=== PATIENT | female | born 1970 | race Caucasian/White ===

== ENCOUNTER 2019-11-06 12:40 | Inpatient (IN) ==
[2019-11-06] MEDS ORDERED: NS 1000 ML 1,000 ML IV ONE ×3 (12:44→17:09)
[2019-11-06 12:58] VITALS: BMI 30.2
--- NOTE | 2019-11-06 13:04 | DR.EXTPAIN ---
HPI Time seen Time Seen by Provider: 11/06/19 12:44 HPI Comment HPI Comment: PATIENT IS 49YR OLD FEMALE IN ER WITH 3 DAYS HISTORY OF NOT FEELING GOOD WHILE ON VACATION. SHE IS HAVING DIARRHEA, IS WEAK AND IS FEELING LIKE SHE IS GOING TO PASS OUT. SHE IS HYPOTENSIVE. PAITIENT HAVE FEVER AND IS SOB. DENIES BEING AROUND COVID 19 PATIENT OR SOMEONE SICK. WORKS IN A DAY CARE. Complaint/Symptoms Chief Complaint Doctor Comments: FEVER, WEAKNESS, MALAISE, DIZZINESS, DIARRHEA SOB AND DIARRHEA TIMES 3 DAYS. COVID-19 Coronavirus risk:travel/contact w/high risk person: No Has patient experienced Coronavirus symptoms: No Coronavirus symptoms experienced: Fever Nurses notes reviewed Nurses Notes Review: Yes Source History Provided: Patient and Family Member Mode of arrival Mode of Arrival: Wheelchair Context History of: None Associated signs and symptoms Associated Signs and Symptoms: Weakness, Fever, Abdominal Pain, Nausea, Palipitations, Shortness of Breath, Syncope (NEAR SYNCOPAL FEELING), Vomiting an d Other PMH PMH Past Surgical History: Yes ROS Review of Systems Constitutional: See HPI, Chills, Fever, Malaise, Weakness and Fatigue Eyes: No Symptoms Reported and See HPI; negative Blurred Vision and Diplopia ENTM: See HPI, Nose Congestion and Throat Pain; negative Ear Pain and Nose Discharge Respiratoy: See HPI, Moist Cough and Short of Breath; negative Wheezing Cardiovascular: See HPI and Other (HYPOTENSION.); negative Chest Pain, Palpitations and Syncope (NEAR SYNCOPAL EPISODE.) Gastrointestinal/Abdominal: See HPI, Diarrhea, Nausea and Vomiting Genitourinary: See HPI, Dysuria, Frequency and Other (DECREASE URINE OUTPUT.) Neurological: See HPI, Weakness and Dizziness Musculoskeletal: No Symptoms Reported and See HPI Integumentary: No Symptoms Reported and See HPI Hematologic/Lymphatic: No Symptoms Reported and See HPI; negative Easy Bruising and Swollen Glands Endocrine: No Symptoms Reported and See HPI; negative Increased Thirst and Increased Urine Psychiatric: No Symptoms Reported and See HPI All Other Systems: Reviewed and Negative PE Vital Signs Vitals: Temperature 99.8 F Pulse Rate 94 Respiratory Rate 28 Blood Pressure [Left Arm] 80/43 Blood Pressure 84/46 O2 Sat by Pulse Oximetry 96 General Limitations: No Limitations General Appearance: Alert and In Distress Head Head Exam: Normal Inspection and Atraumatic Eyes Eye exam: Normal Appearance and PERRL; negative Scleral Icterus and Conjunctival Injection ENT ENT Exam: Normal Exam, Normal Oropharynx, Normal External Ear Exam and TM's Normal Bilaterally Neck Neck Exam: Normal Inspection and Trachea Midline; negative Tenderness and Lymphadenopathy Chest Chest Inspection: Normal Inspection and Symmetric Chest Wall Rise; negative Tenderness Respiratory Respiratory Exam: Normal Lung Sounds Bilat and Respiratory Distress; negative Accessory Muscle Use and Chest Wall Tenderness Respiratory Exam: Bilateral: Rhonchi and Lower: Rhonchi Cardiovascular Cardiovascular Exam: Regular Rate and Normal Rhythm; negative Normal Heart Sounds, Systolic Murmur and Diastolic Murmur Abdominal Exam Abdominal Exam: Normal Inspection, Normal Bowel Sounds, Soft and Tenderness Abdominal Tenderness: Diffuse and Moderate Extremities Extremities Exam: Normal Inspection and Normal Capillary Refill; negative Tenderness, Edema and Calf Tenderness Back Back Exam: Normal Inspection; negative (R) CVA Tenderness and (L) CVA Tenderness Neurological Neurological Exam: Alert, Oriented X3 and CN II-XII Intact; negative Motor Sensory Deficit Psychiatric Psychiatric Exam: Normal Affect and Normal Mood Skin Skin Exam: Dry MDM Differential Diagnosis Differential Diagnosis: Other (HYPOTENSION, PNEUMONIA, SEPSIS, GASTROENTERITIS, DIARRHEA, [place]) COURSE Treatment Treatment: SEE ORDERS. NS 1L IV BOLUS. REPEAT NS 1L IV BOLUS. OFIRMEV 1GM IVPB, LEVAQUIN 750MG IVPB IN ER. Reevaluation 1st: Unchanged 2nd: Improved (BP IMPROVING.) Consultation Consultation Comments: DR. CUELLO WILL ADMIT PATIENT. Education/Counseling Education/Counseling: Patient Educated On: Diagnosis ROR Labs Reviewed Laboratory Results Reviewed?: Yes Result Diagrams: 11/09/19 04:20 11/09/19 04:20 Laboratory: 11/06/19 12:59 Blood Blood Culture - Preliminary 11/06/19 12:53 Blood Blood Culture - Preliminary WBC 5.1 X10^3/uL (3.6-10.0) 11/06/19 12:53 RBC 4.68 X10^6/uL (3.5-5.4) 11/06/19 12:53 Hgb 13.6 g/dL (12.0-16.0) 11/06/19 12:53 Hct 39.9 % (36.0-47.0) 11/06/19 12:53 MCV 85.3 fL (80.0-100.0) 11/06/19 12:53 MCH 29.1 pg (27.0-34.0) 11/06/19 12:53 MCHC 34.1 g/dL (33.0-35.0) 11/06/19 12:53 RDW 13.5 % (11.6-16.5) 11/06/19 12:53 Plt Count 207 X10^3/uL (150.0-450.0) 11/06/19 12:53 MPV 7.9 fL (7.4-11.0) 11/06/19 12:53 Neut % (Auto) 76.5 % (42.0-75.0) H 11/06/19 12:53 Lymph % (Auto) 14.6 % (21.0-51.0) L 11/06/19 12:53 [place] % (Auto) 4.6 % (0.0-13.0) 11/06/19 12:53 Eos % (Auto) 0.1 % (0.9-2.9) L 11/06/19 12:53 Baso % (Auto) 4.2 % (0.2-1.0) H 11/06/19 12:53 Neut # (Auto) 3.9 x10^3/uL (2.2-4.8) 11/06/19 12:53 Lymph # (Auto) 0.8 X10^3/uL (1.3-2.9) L 11/06/19 12:53 [place] # (Auto) 0.2 x10^3/uL (0.3-0.8) L 11/06/19 12:53 Eos # (Auto) 0.0 x10^3/uL (0.0-0.2) 11/06/19 12:53 Baso # (Auto) 0.2 X10^3/uL (0.0-0.1) H 11/06/19 12:53 Absolute Nucleated RBC 0.1 /100WBC 11/06/19 12:53 Sodium 128 mmol/L (136-145) L 11/06/19 12:53 Corrected Sodium 131 mmol/L (136-145) L 11/06/19 12:53 Potassium 3.6 mmol/L (3.5-5.1) 11/06/19 12:53 Chloride 92 mmol/L (98-107) L 11/06/19 12:53 Carbon Dioxide 18.4 mmol/L (21-32) L 11/06/19 12:53 BUN 18 mg/dL (7-18) 11/06/19 12:53 Creatinine 1.45 mg/dL (0.55-1.02) H 11/06/19 12:53 Est GFR (MDRD) Af Amer 50 (>60) L 11/06/19 12:53 Est GFR (MDRD) Non-Af 41 (>60) L 11/06/19 12:53 Glucose 234 mg/dL (65-99) H 11/06/19 12:53 Lactic Acid 1.6 mmol/L (0.4-2.0) 11/06/19 12:53 Calcium 8.4 mg/dL (8.5-10.1) L 11/06/19 12:53 Corrected Calcium 9.0 mg/dL (8.5-10.1) 11/06/19 12:53 Ferritin 196 ng/mL (8-252) 11/06/19 12:53 Total Bilirubin 0.40 mg/dL (0.2-1.0) 11/06/19 12:53 AST 32 Units/L (15-37) 11/06/19 12:53 ALT 37 Units/L (12-78) 11/06/19 12:53 Alkaline Phosphatase 122 Units/L (46-116) H 11/06/19 12:53 Lactate Dehydrogenase 283 Units/L (81-234) H 11/06/19 12:53 C-Reactive Protein 25.00 mg/L (0-3.0) H 11/06/19 12:53 Total Protein 7.8 g/dL (6.4-8.2) 11/06/19 12:53 Albumin 3.2 g/dL (3.4-5.0) L 11/06/19 12:53 Globulin 4.6 g/dL (2.5-4.5) H 11/06/19 12:53 Albumin/Globulin Ratio 0.7 Ratio (1.1-2.1) L 11/06/19 12:53 Amylase 69 Units/L (25-115) 11/06/19 12:53 Lipase 471 Units/L (73-393) H 11/06/19 12:53 Acetone, Semi-Quant Negative (NEGATIVE) 11/06/19 12:53 Influenza Type A Ag Negative-presumptive (NEGATIVE) 11/06/19 15:30 Influenza Type B Ag Negative-presumptive (NEGATIVE) 11/06/19 15:30 SARS-CoV-2 (PCR) Positive (NEGATIVE) A 11/06/19 15:30 S. pyogenes (TEM-PCR) Not detected (NOT DETECT) 11/06/19 15:30 XRAY XRAY Interpreted by: Radiologist (REPORT NOTED AND DISCUSSED WITH PATIENT.) and Self Opioid Opioid Risk Tool Age (Demarco box if 16-45): No History of Preadolescent Sexual Abuse: No Total: 0 Total Score Risk Category: Low Risk Copyright: [employer] predicting aberrant behaviors Diagnosis Discharge Problem: Hyponatremia, COVID-19 Hypotension Qualifiers: Hypotension type: unspecified hypotension type Qualified Code(s): I95.9 - Hypotension, unspecified Pneumonia Qualifiers: Pneumonia type: due to unspecified organism Laterality: bilateral Lung location: lower lobe of lung Qualified Code(s): J18.9 - Pneumonia, unspecified organism Diarrhea Qualifiers: Diarrhea type: due to malabsorption Qualified Code(s): K90.9 - Intestinal malabsorption, unspecified Instructions Instructions: Hypotension, [id number] Viral Respiratory Infection, Xygn-Cq-Tqeo Fever, Adult Cough, Adult, Eiav-ei-Rzgc Type 2 Diabetes Mellitus, Self Care, Adult, Mqeg-rn-Hpmm Community-Acquired Pneumonia, Adult, Xzex-ek-[id number] Forms: Precautions for COVID19 Patient Portal Social Distancing
[2019-11-06 13:19] LABS: BASOPHILS # (AUTO) 0.2 X10^3/uL (0.0-0.1); BASOPHILS % (AUTO) 4.2 % (0.2-1.0); EOSINOPHILS % (AUTO) 0.1 % (0.9-2.9); HEMATOCRIT 39.9 % (36.0-47.0); HEMOGLOBIN 13.6 g/dL (12.0-16.0); LYMPHOCYTES # (AUTO) 0.8 X10^3/uL (1.3-2.9); LYMPHOCYTES % (AUTO) 14.6 % (21.0-51.0); MEAN CORPUSCULAR HEMOGLOBIN 29.1 pg (27.0-34.0); MEAN CORPUSCULAR HGB CONC 34.1 g/dL (33.0-35.0); MEAN CORPUSCULAR VOLUME 85.3 fL (80.0-100.0); MEAN PLATELET VOLUME 7.9 fL (7.4-11.0); MONOCYTES # (AUTO) 0.2 x10^3/uL (0.3-0.8); MONOCYTES % (AUTO) 4.6 % (0.0-13.0); NEUTROPHILS # (AUTO) 3.9 x10^3/uL (2.2-4.8); NEUTROPHILS % (AUTO) 76.5 % (42.0-75.0); PLATELET COUNT 207 X10^3/uL (150.0-450.0); RED BLOOD COUNT 4.68 X10^6/uL (3.5-5.4); RED CELL DISTRIBUTION WIDTH 13.5 % (11.6-16.5); WHITE BLOOD COUNT 5.1 X10^3/uL (3.6-10.0)
[2019-11-06 13:26] LABS: ALBUMIN 3.2 g/dL (3.4-5.0); CALCIUM 8.4 mg/dL (8.5-10.1); CARBON DIOXIDE 18.4 mmol/L (21-32); CREATININE 1.45 mg/dL (0.55-1.02); TOTAL PROTEIN 7.8 g/dL (6.4-8.2)
[2019-11-06 13:29] LABS: LACTIC ACID 1.6 mmol/L (0.4-2.0)
[2019-11-06] MEDS ORDERED: NS 1000 ML 1,000 ML ONE ×2 (13:41→15:13)
--- NOTE | 2019-11-06 14:45 | RAD ---
HISTORY:Body aches, chills, possible COVID-19Study: Single view chestComparison:NoneFindings:Single portable views limited by body habitus. Lung volumes are reduced. Mild perihilar atelectasis or infiltrates are seen in both lungs. No pneumothorax or pleural effusion. Heart size normalIMPRESSION:1. Mild bilateral perihilar atelectasis versus developing infiltrates. Pneumonia not excluded.Electronically signed by: GEOVANY WALTERS (Nov 06, 2019 14:44:22)
[2019-11-06] MEDS ORDERED: OFIRMEV IV 1000 MG VIAL 1,000 MG/100 ML VIAL IV ONE (15:09)
--- NOTE | 2019-11-06 15:09 | CT ---
HISTORY:Body aches, abdominal pain, chillsStudy: CT abdomen and pelvis without contrastComparison:NoneTechnique: Multiple axial images of the abdomen and pelvis were obtained without IV contrast. Oral contrast was not administered. Dose reduction techniques including Automated Exposure Control (AEC) and adjustment of mA and kV were utilized.FINDINGS:Please note evaluation is limited without IV contrast.Peripheral ground-glass infiltrates at the lung bases compatible with pneumonia with atypical viral etiologies not excluded. There is mild hepatic steatosis and hepatomegaly. Spleen is borderline enlarged. The unenhanced pancreas and adrenal glands are normal. Gallbladder is removed. No renal calculi or obstructive uropathy.No free intraperitoneal air. No evidence of intestinal obstruction or inflammation. Appendix is normal. No free fluid.There is a fat containing umbilical hernia. Limited evaluation of vascular structures due to lack of IV contrast. No pathologically enlarged lymph nodes are identified. Normal urinary bladder. There is a 2.8 centimeter right adnexal cyst.IMPRESSION ABDOMEN/PELVIS:1. Peripheral ground-glass infiltrates at the lung bases compatible with pneumonia. Atypical viral etiologies such as COVID-19 not excluded.2. No acute findings within the abdomen and pelvis on limited noncontrast imaging.3. Fat containing periumbilical hernia.4. 2.8 centimeter right adnexal cyst, likely ovarian.5. Mild hepatic steatosis.Electronically signed by: GEOVANY WALTERS (Nov 06, 2019 15:08:04)
[2019-11-06] MEDS: NS 1000 ML 1,000 ML IV SCH (15:21)
[2019-11-06] MEDS ORDERED: LEVAQUIN PREMIX IV 750 MG 750 MG/150 ML BAG IV ONE ×2 (15:22→15:46)
[2019-11-06] MEDS ORDERED: ROBITUSSIN DM ONE (17:21)
[2019-11-06] MEDS: ROBITUSSIN DM PO SCH ×2 (17:31→20:41)
[2019-11-06 18:11] LABS: BILIRUBIN,URINE NEGATIVE (NEGATIVE); BLOOD/HEMOGLOBIN,URINE NEGATIVE (NEGATIVE); GLUCOSE, URINE 4+ (NEGATIVE); KETONES,URINE 2+ (NEGATIVE); LEUKOCYTE ESTERASE ,URINE NEGATIVE (NEGATIVE); NITRITES,URINE NEGATIVE (NEGATIVE); PROTEIN,URINE 2+ (NEGATIVE); UROBILINOGEN,URINE NORMAL (NORMAL)
[2019-11-06 18:18] LABS: AMORPHOUS SEDIMENT,UR TRACE /HPF (NEGATIVE); APPEARANCE,URINE CLEAR (CLEAR); BACTERIA,URINE NEGATIVE /HPF (NEGATIVE); COLOR,URINE YELLOW (YELLOW); RBC,URINE NONE SEEN /HPF (0-3); SQUAMOUS EPITHELIAL CELL,UR RARE /HPF (NEGATIVE)
[2019-11-06 18:19] LABS: HYALINE CASTS, URINE RARE /LPF (NEGATIVE); MUCUS,URINE MODERATE /HPF (NEGATIVE)
[2019-11-06] MEDS ORDERED: NORCO 5/325 MG TAB PO ONE (20:27)
[2019-11-06] MEDS ORDERED: NORCO 5/325 MG TAB ONE (20:29)
--- NOTE | 2019-11-06 23:15 | DR.H&P ---
H&P - History & Physical for Day of: H&P Date: 11/06/19 - Chief Complaint Chief Complaint: CHILLS, HEADACHE, CONGESTION, NAUSEA, DIARRHEA, BODY ACHES, WEAKNESS, DIZZINESS, SYNCOPE - History of Present Illness History of Present Illness: IS A 49 YEAR OLD PATIENT OF OURS WHO PRESENTED TO THE ER WITH REPORTS OF CHILLS, HEADACHE, CONGESTION, NAUSEA, DIARRHEA, BODY ACHES, WEAKNESS, DIZZINESS, AND SYNCOPAL EPISODES. CONGESTION AND HEADACHE STARTED ABOUT A WEEK AGO. SHE WAS PLACED ON AMOXICILLIN 500 MG PO BID, PREDNISONE 5MG PO DAILY, AND MUCINEX DM 1200MG PO BID ON 11/01/19 FOR A SUSPECTED SINUS INFECTION. SHE DENIES IMPROVEMENT IN SYMPTOMS. HER PMH INCLUDES CARDIAC ARRHYTHMIA, HYPERLIPIDEMIA, GERD, DIABETES II, HYPOTHYROIDISM, ANEMIA, ANXIETY, AND CHOLECYSTECTOMY. ON ARRIVAL TO THE ER, VITALS WERE 100.6-16-90-96%-61/41. LABS WERE OBTAINED. ABNORMAL LAB VALUES INCLUDE THE FOLLOWING: SODIUM 128, CHLORIDE 92, CARBON DIOXIDE 18.4, CREATININE 1.45, GLUCOSE 234, CALCIUM 8.4, ALK PHOS 122, LACTATE DEHYDROGENASE 283, CRP 25.00, ALBUMIN 3.2, GLOBULIN 4.6, LIPASE 471. INFLUENZA NEGATIVE, STREP NEGATIVE, COVID-19 POSITIVE. BLOOD CULTURE WERE SET UP. AN ABDOMEN/PELVIS CT WAS OBTAINED WITHOUT CONTRAST AND REVEALED: 1. Peripheral ground-glass infiltrates at the lung bases compatible with pneumonia. Atypical viral etiologies such as COVID-19 not excluded. 2. No acute findings within the abdomen and pelvis on limited non- contrast imaging. 3. Fat containing periumbilical hernia. 4. 2.8 centimeter right adnexal cyst, likely ovarian. 5. Mild hepatic steatosis. A CHEST XRAY WAS OBTAINED AND REVEALED: 1. Mild bilateral perihilar atelectasis versus developing infiltrates. Pneumonia not excluded. SHE WAS GIVEN NORCO 5/325MG PO X 1, (3) ONE LITER NORMAL SALINE BOLUSES, LEVAQUIN 750MG IV X 2, AND IV TYLENOL IN THE ER. SHE WAS ADMITED FOR FURTHER EVALUATION AND TREATMENT OF COVID-19, PNEUMONIA, DEHYDRATION, HYPONATREMIA, AND HYPOTENSION. SHE WAS STARTED ON THE PNEUMONIA PROTOCOL WITH NS AT 25ML/HR, LEVAQUIN 750MG IV DAILY, ROBITUSSIN DM 10M PO QID, TUSSIONEX 5ML PO Q12H, AND DUONEBS Q6H. WE WILL REVIEW HER HOME MEDICATIONS. OTHERWISE, WE WILL FOLLOW UP WITH AM LABS AND CONTINUE TO MONITOR. - Past Medical History Past Medical History: Diabetes, Hypertension - Past Surgical History Surgical History: Cholecystectomy - Family History Family Medical History: Diabetes Mellitus, Cancer, [place], Coronary Artery Disease, Heart Failure, Sudden Cardiac , Hypertension - Social History Does patient currently use any type of tobacco product: No Have you used tobacco products in the last 12 months: No Type of Tobacco Use: None Does any household member use tobacco: No Alcohol Use: None Drug Use: None - Medications Home Medications: No Known Drug Allergies Allergy (Verified 11/06/19 13:06) - Review of Systems Constitutional: Fever, Chills, Weakness Eyes: No Symptoms Reported ENT: No Symptoms Reported Respiratory: Shortness of Breath Cardiovascular: Light Headedness Gastrointestinal: See HPI, Nausea, Diarrhea Genitourinary: No Symptoms Reported Musculoskeletal: No Symptoms Reported Skin: No Symptoms Reported Neurological: Weakness - Physical Exam Vital Signs: Temperature 99.8 F Pulse Rate [Apical] 93 Pulse Rate 96 Respiratory Rate 20 Blood Pressure [Left Arm] 94/48 Blood Pressure 91/54 O2 Sat by Pulse Oximetry 96 Oriented: Normal Eyes: Normal Ear: Normal Nose: Normal Throat: Normal Respiratory: Diminished Throughout Cardiovascular: Normal : Normal Auscultation: Bowel Sounds: Normal Palpation: Normal Tenderness: Normal Skin: Normal Musculoskeletal: Normal Psychiatric: Normal Mood Description: Calm Affect: Normal Speech Pattern: Clear - Assessment/Plan (1) COVID-19 Status: Acute Plan: ADMIT, NS AT 25ML/HR, LEVAQUIN 750MG IV DAILY, ROBITUSSIN DM 10M PO QID, TUSSIONEX 5ML PO Q12H, AND DUONEBS Q6H, REMDESIVIR 200MG IV TODAY, THEN 100MG IV DAILY (2) Pneumonia Qualifiers: Pneumonia type: due to unspecified organism Laterality: bilateral Lung location: lower lobe of lung Qualified Code(s): J18.9 - Pneumonia, unspecified organism Status: Acute (3) Hyponatremia Status: Acute (4) Hypotension Qualifiers: Hypotension type: unspecified hypotension type Qualified Code(s): I95.9 - Hypotension, unspecified Status: Acute - Allergies Allergies/Adverse Reactions: Allergies Allergy/AdvReac Type Severity Reaction Status Date / Time No Known Drug Allergies Allergy Verified 11/06/19 13:06
[2019-11-07] MEDS ORDERED: DUONEB 0.5 MG/3 MG (3 mL) NEB SCH
[2019-11-07] MEDS: NS 1000 ML 1,000 ML IV SCH ×4 (00:47→16:54)
[2019-11-07] MEDS: DUONEB 0.5 MG/3 MG (3 mL) NEB SCH ×4 (04:08→18:10)
[2019-11-07 06:01] LABS: BASOPHILS % (AUTO) 0.5 % (0.2-1.0); EOSINOPHILS % (AUTO) 0.1 % (0.9-2.9); HEMATOCRIT 34.5 % (36.0-47.0); HEMOGLOBIN 11.7 g/dL (12.0-16.0); LYMPHOCYTES # (AUTO) 0.9 X10^3/uL (1.3-2.9); MEAN CORPUSCULAR HEMOGLOBIN 29.2 pg (27.0-34.0); MEAN CORPUSCULAR HGB CONC 33.8 g/dL (33.0-35.0); MEAN CORPUSCULAR VOLUME 86.6 fL (80.0-100.0); MEAN PLATELET VOLUME 7.8 fL (7.4-11.0); MONOCYTES # (AUTO) 0.3 x10^3/uL (0.3-0.8); MONOCYTES % (AUTO) 7.8 % (0.0-13.0); NEUTROPHILS # (AUTO) 2.2 x10^3/uL (2.2-4.8); NEUTROPHILS % (AUTO) 64.6 % (42.0-75.0); PLATELET COUNT 170 X10^3/uL (150.0-450.0); RED BLOOD COUNT 3.99 X10^6/uL (3.5-5.4); RED CELL DISTRIBUTION WIDTH 13.9 % (11.6-16.5); WHITE BLOOD COUNT 3.3 X10^3/uL (3.6-10.0)
[2019-11-07 06:03] LABS: ALANINE AMINOTRANSFERASE 32 Units/L (12-78); ALBUMIN 2.5 g/dL (3.4-5.0); ALKALINE PHOSPHATASE 96 Units/L (46-116); ASPARTATE AMINO TRANSFERASE 30 Units/L (15-37); BLOOD UREA NITROGEN 12 mg/dL (7-18); CALCIUM 7.6 mg/dL (8.5-10.1); CARBON DIOXIDE 17.9 mmol/L (21-32); CHLORIDE 103 mmol/L (98-107); COR CA(FOR HYPOALB) 8.8 mg/dL (8.5-10.1); COR NA(FOR HYPERGLY) 137 mmol/L (136-145); CREATININE 0.83 mg/dL (0.55-1.02); SODIUM 136 mmol/L (136-145); TOTAL PROTEIN 6.4 g/dL (6.4-8.2); eGFR NON BLACK RACES > 60 (>60)
--- NOTE | 2019-11-07 08:27 | RAD ---
HISTORYSHORTNESS OF BREATHSTUDYCHEST, 1 VIEWCOMPARISONJuly 2019FINDINGSThe patient is rotated. The cardiac silhouette is unremarkable. Infiltrate is noted bilaterally primarily within a peripheral and bibasilar distribution suggesting multifocal infiltrate which may be either bacterial or viral in origin. The right lower lobe airspace disease appears to have progressed/worsened since prior exam. Recommend clinical correlation and continued follow up as indicated for further evaluation.IMPRESSIONBilateral airspace disease as discussed above.Electronically signed by: MINESH CUEVAS (Nov 07, 2019 08:26:13)
[2019-11-07] MEDS ORDERED: NORCO 5/325 MG TAB ONE (08:32)
[2019-11-07] MEDS: NORCO 5/325 MG TAB PO PRN ×3 (08:33→23:00)
[2019-11-07] MEDS: LEVAQUIN PREMIX IV 750 MG 750 MG/150 ML BAG IV SCH (09:35)
[2019-11-07] MEDS: ROBITUSSIN DM PO SCH ×4 (09:36→20:31)
[2019-11-07] MEDS: VSL#3 PO SCH (09:36)
[2019-11-07] MEDS ORDERED: TORADOL 30 MG VIAL ONE (09:39)
[2019-11-07] MEDS: TORADOL 30 MG VIAL IVP SCH ×2 (09:41→17:55)
[2019-11-07] MEDS ORDERED: REMDESIVIR (INVESTIGATIONAL DRUG GS-5734) 200 MG in NS 250 ML IV 250 ML IV NR (10:30)
[2019-11-07] MEDS: LOVENOX INJ 40 MG SYR SC SCH (13:30)
[2019-11-07] MEDS ORDERED: POTASSIUM CHL 60 MEQ/NS 0.45% 500 ML IV PRN (19:14)
[2019-11-07] MEDS ORDERED: MICRO K EXTEN CAP 10 MEQ PO PRN (19:14)
[2019-11-07] MEDS ORDERED: POTASSIUM CHLORIDE LIQ 20 MEQ UDC PO PRN (19:14)
[2019-11-07] MEDS ORDERED: POTASSIUM CHL 40 MEQ/NS 0.45% 500 ML IV PRN (19:14)
[2019-11-07] MEDS ORDERED: K-RIDER 10 MEQ/NS 100 ML 10 MEQ/100 ML BAG IV PRN (19:14)
[2019-11-07] MEDS ORDERED: KLOR-CON PO PRN (19:14)
[2019-11-07] MEDS: K-DUR TAB 20 MEQ PO PRN (20:31)
[2019-11-07] MEDS: MAGNESIUM SULFATE 1 GRAM/100 mL PREMIX 1 GM/100 ML BAG IV PRN ×3 (20:35→22:50)
[2019-11-07] MEDS ORDERED: NexIUM ONE (21:31)
[2019-11-07] MEDS: NexIUM PO SCH (21:32)
[2019-11-08] MEDS: MAGNESIUM SULFATE 1 GRAM/100 mL PREMIX 1 GM/100 ML BAG IV PRN (00:06)
[2019-11-08] MEDS: DUONEB 0.5 MG/3 MG (3 mL) NEB SCH ×2 (00:40→05:50)
[2019-11-08] MEDS: TORADOL 30 MG VIAL IVP SCH ×3 (01:15→17:35)
[2019-11-08] MEDS: NS 1000 ML 1,000 ML IV SCH ×6 (02:00→22:55)
[2019-11-08 05:41] LABS: BASOPHILS % (AUTO) 0.3 % (0.2-1.0); EOSINOPHILS % (AUTO) 0.1 % (0.9-2.9); HEMATOCRIT 33.6 % (36.0-47.0); HEMOGLOBIN 11.5 g/dL (12.0-16.0); LYMPHOCYTES # (AUTO) 0.9 X10^3/uL (1.3-2.9); LYMPHOCYTES % (AUTO) 18.6 % (21.0-51.0); MEAN CORPUSCULAR HEMOGLOBIN 29.7 pg (27.0-34.0); MEAN CORPUSCULAR HGB CONC 34.2 g/dL (33.0-35.0); MEAN CORPUSCULAR VOLUME 86.8 fL (80.0-100.0); MEAN PLATELET VOLUME 7.7 fL (7.4-11.0); MONOCYTES # (AUTO) 0.2 x10^3/uL (0.3-0.8); MONOCYTES % (AUTO) 4.8 % (0.0-13.0); NEUTROPHILS # (AUTO) 3.6 x10^3/uL (2.2-4.8); NEUTROPHILS % (AUTO) 76.2 % (42.0-75.0); PLATELET COUNT 182 X10^3/uL (150.0-450.0); RED BLOOD COUNT 3.87 X10^6/uL (3.5-5.4); RED CELL DISTRIBUTION WIDTH 13.8 % (11.6-16.5); WHITE BLOOD COUNT 4.7 X10^3/uL (3.6-10.0)
[2019-11-08 05:58] LABS: ALANINE AMINOTRANSFERASE 73 Units/L (12-78); ALBUMIN 2.3 g/dL (3.4-5.0); ALKALINE PHOSPHATASE 225 Units/L (46-116); ASPARTATE AMINO TRANSFERASE 84 Units/L (15-37); BLOOD UREA NITROGEN 9 mg/dL (7-18); CALCIUM 7.8 mg/dL (8.5-10.1); CARBON DIOXIDE 16.2 mmol/L (21-32); CHLORIDE 103 mmol/L (98-107); COR CA(FOR HYPOALB) 9.2 mg/dL (8.5-10.1); COR NA(FOR HYPERGLY) 135 mmol/L (136-145); CREATININE 0.79 mg/dL (0.55-1.02); SODIUM 134 mmol/L (136-145); TOTAL PROTEIN 6.3 g/dL (6.4-8.2); eGFR NON BLACK RACES > 60 (>60)
--- NOTE | 2019-11-08 06:01 | RAD ---
Chest AP portableIndication: DyspneaComparison November 07, 2019FINDINGSThere is no pneumothorax. Patchy bilateral pulmonary opacities are again noted, similar to the prior, perhaps slightly worsened.IMPRESSIONWall show multifocal pulmonary opacities suggesting pneumonia.Electronically signed by: JUAN CARLOS GODINEZ (Nov 08, 2019 05:59:38)
[2019-11-08] MEDS: LEVAQUIN PREMIX IV 750 MG 750 MG/150 ML BAG IV SCH (08:00)
[2019-11-08] MEDS: VSL#3 PO SCH (08:10)
[2019-11-08] MEDS: ROBITUSSIN DM PO SCH ×4 (08:10→21:12)
[2019-11-08] MEDS: NexIUM PO SCH (08:10)
[2019-11-08] MEDS: LOVENOX INJ 40 MG SYR SC SCH (08:10)
[2019-11-08] MEDS: NORCO 5/325 MG TAB PO PRN (08:15)
[2019-11-08] MEDS: REMDESIVIR (INVESTIGATIONAL DRUG GS-5734) 100 MG in NS 250 ML IV 250 ML IV SCH (09:40)
[2019-11-08] MEDS ORDERED: NexIUM PO SCH (10:00)
[2019-11-08] MEDS ORDERED: GLUCOPHAGE ONE ×2 (10:00→20:17)
[2019-11-08 10:36] LABS: ABG BASE EXCESS -10.6 mmol/L (-2.0-2.0)
[2019-11-08 10:37] LABS: ABG HCO3 13.5 mmol/L (22-26)
[2019-11-08] MEDS ORDERED: BENADRYL INJ 50 MG VIAL IVP ONE (10:38)
[2019-11-08] MEDS: GLUCOPHAGE PO SCH ×2 (10:50→21:11)
[2019-11-08] MEDS: HEMOCYTE-PLUS PO SCH (10:50)
[2019-11-08] MEDS ORDERED: BENADRYL INJ 50 MG VIAL ONE (10:52)
[2019-11-08] MEDS: SOLU-Medrol 40 MG VIAL IVP SCH ×3 (11:06→21:12)
[2019-11-08] MEDS: SYNTHROID 50 mcg TAB PO SCH (11:57)
[2019-11-08] MEDS: XOPENEX 1.25 MG/3 ML NEBULE NEB PRN ×2 (12:20→17:50)
[2019-11-08] MEDS: PATIENT'S HOME MEDICATION (Empagliflozin [Jardiance] 25 MG) PO SCH (13:10)
[2019-11-08] MEDS: VORTIOXETINE 5 MG PO SCH (13:10)
[2019-11-08] MEDS: HumuLIN R SUBCUT PRN ×2 (16:50→21:00)
--- NOTE | 2019-11-08 19:24 | PCM.PROG ---
Progress Note - Progress Note for Day of Date of Exam: 11/08/19 - Subjective Subjective: IS BEING TREATED FOR COVID-19, PNEUMONIA, HYPONATREIA, AND HYPOTENSION. TODAY, SHE IS ALERT AND ORIENTED, LYING IN BED ON MORNING ROUNDS. SHE CONTINUES WITH COMPLAINTS OF CONGESTION, WEAKNESS, AND HEADACHE TODAY. ON EXAMINATION, HEART IS REGULAR IN RATE AND RHYTHM. BILATERAL LUNGS ARE NOTED WITH SCATTERED WHEEZING THROUGHOUT. ABDOMEN IS ROUND, SOFT, AND NON-TENDER WITH NORMAL BOWEL SOUNDS NOTED IN ALL QUADRANTS. HER VITALS THIS MORNING ARE 98.2-124-35-91%NC-128/57. LABS WERE OBTAINED. ABNORMAL LAB VALUES INCLUDE THE FOLLOWING: HGB 11.5, HCT 33.6, SODIUM 134, CARBON DIOXIDE 16.2, GLUCOSE 147, CALCIUM 7.8, AST 84. ALT 225, CRP 48.30, TOTAL PROTEIN 6.3, ALBUMIN 2.3. BLOOD CULTURES ARE PENDING. A CHEST XRAY WAS OBTAINED THIS MORNING AND REVEALED: Wall show multifocal pulmonary opacities suggesting pneumonia. SHE IS CURRENTLY RECEIVING NS AT 25ML/HR, LEVAQUIN 750MG IV DAILY, REMDESIVIR 100MG IV DAILY, TORADOL 30MG IV Q8H, ROBITUSSIN DM 10M PO QID, TUSSIONEX 5ML PO Q12H, AND DUONEBS Q6H. WE WILL OBTAIN AN ABG TODAY. WE WILL START SOLU-MEDROL 80MG IV Q8H AND HUMULIN R SLIDING SCALE. WE WILL ALSO CONTINUE HER HOME MEDICATIONS. OTHERWISE, WE WILL FOLLOW UP WITH AM LABS AND CHEST XRAY AND CONTINUE TO MONITOR. - Past Medical Family Social History Past Med/Fam/Surg Hx: No changes since H&P Allergies: Allergies No Known Drug Allergies Allergy (Verified 11/06/19 13:06) - Review of Systems ROS: No change since H&P - Vital Signs and I&O's Vital Signs: Temperature 98.8 F Pulse Rate [Apical] 106 Pulse Rate 98 Respiratory Rate 28 Blood Pressure [Left Arm] 118/57 Blood Pressure 91/54 O2 Sat by Pulse Oximetry 92 Intake and Output: Intake & Output 11/06/19 11/07/19 11/08/19 11/09/19 11:59 11:59 11:59 11:59 Intake Total 3050 / 3050 4810 / 4810 3374 / 3374 Output Total 0 / 0 0 / 0 Balance 3050 / 3050 4810 / 4810 3374 / 3374 - Physical Exam Oriented: Normal Eyes: Normal Ear: Normal Nose: Normal Throat: Normal Respiratory: Generalized, Diminished, Wheezes Cardiovascular: Normal : Normal Auscultation: Bowel Sounds: Normal Palpation: Normal Tenderness: Normal Skin: Normal Musculoskeletal: Normal Psychiatric: Normal Mood Description: Calm Affect: Normal Speech Pattern: Clear, Appropriate - Laboratory and Diagnostics Result Diagrams: 11/08/19 05:13 11/08/19 05:13 Labs: 11/06/19 12:59 Blood Blood Culture - Preliminary 11/06/19 12:53 Blood Blood Culture - Preliminary Laboratory WBC 4.7 X10^3/uL (3.6-10.0) 11/08/19 05:13 RBC 3.87 X10^6/uL (3.5-5.4) 11/08/19 05:13 Hgb 11.5 g/dL (12.0-16.0) L 11/08/19 05:13 Hct 33.6 % (36.0-47.0) L 11/08/19 05:13 MCV 86.8 fL (80.0-100.0) 11/08/19 05:13 MCH 29.7 pg (27.0-34.0) 11/08/19 05:13 MCHC 34.2 g/dL (33.0-35.0) 11/08/19 05:13 RDW 13.8 % (11.6-16.5) 11/08/19 05:13 Plt Count 182 X10^3/uL (150.0-450.0) 11/08/19 05:13 MPV 7.7 fL (7.4-11.0) 11/08/19 05:13 Neut % (Auto) 76.2 % (42.0-75.0) H 11/08/19 05:13 Lymph % (Auto) 18.6 % (21.0-51.0) L 11/08/19 05:13 [place] % (Auto) 4.8 % (0.0-13.0) 11/08/19 05:13 Eos % (Auto) 0.1 % (0.9-2.9) L 11/08/19 05:13 Baso % (Auto) 0.3 % (0.2-1.0) 11/08/19 05:13 Neut # (Auto) 3.6 x10^3/uL (2.2-4.8) 11/08/19 05:13 Lymph # (Auto) 0.9 X10^3/uL (1.3-2.9) L 11/08/19 05:13 [place] # (Auto) 0.2 x10^3/uL (0.3-0.8) L 11/08/19 05:13 Eos # (Auto) 0.0 x10^3/uL (0.0-0.2) 11/08/19 05:13 Baso # (Auto) 0.0 X10^3/uL (0.0-0.1) 11/08/19 05:13 Absolute Nucleated RBC 0.0 /100WBC 11/08/19 05:13 Sample Site Left brachial 11/08/19 10:26 ABG pH 7.340 (7.35-7.45) L 11/08/19 10:26 ABG pCO2 25.0 mmHg (35.0-45.0) L 11/08/19 10:26 ABG pO2 65.0 mmHg (80.0-100.0) L 11/08/19 10:26 ABG HCO3 13.5 mmol/L (22-26) L* 11/08/19 10:26 ABG O2 Saturation 91.0 % (90-100) 11/08/19 10:26 ABG Base Excess -10.6 mmol/L (-2.0-2.0) L 11/08/19 10:26 Dieter Test Na 11/08/19 10:26 A-a Gradient 103.0 mmHg 11/08/19 10:26 FiO2 28.0 11/08/19 10:26 Blood Gas Comments Serafin well aw 11/08/19 10:26 Sodium 134 mmol/L (136-145) L 11/08/19 05:13 Corrected Sodium 135 mmol/L (136-145) L 11/08/19 05:13 Potassium 4.1 mmol/L (3.5-5.1) 11/08/19 05:13 Chloride 103 mmol/L (98-107) 11/08/19 05:13 Carbon Dioxide 16.2 mmol/L (21-32) L 11/08/19 05:13 BUN 9 mg/dL (7-18) 11/08/19 05:13 Creatinine 0.79 mg/dL (0.55-1.02) 11/08/19 05:13 Est GFR (MDRD) Af Amer > 60 (>60) 11/08/19 05:13 Est GFR (MDRD) Non-Af > 60 (>60) 11/08/19 05:13 Glucose 147 mg/dL (65-99) H 11/08/19 05:13 Lactic Acid 1.6 mmol/L (0.4-2.0) 11/06/19 12:53 Calcium 7.8 mg/dL (8.5-10.1) L 11/08/19 05:13 Corrected Calcium 9.2 mg/dL (8.5-10.1) 11/08/19 05:13 Magnesium 2.0 mg/dL (1.7-2.9) 11/08/19 05:13 Ferritin 218 ng/mL (8-252) 11/08/19 05:13 Total Bilirubin 0.30 mg/dL (0.2-1.0) 11/08/19 05:13 AST 84 Units/L (15-37) H 11/08/19 05:13 ALT 73 Units/L (12-78) 11/08/19 05:13 Alkaline Phosphatase 225 Units/L (46-116) H 11/08/19 05:13 Lactate Dehydrogenase 283 Units/L (81-234) H 11/06/19 12:53 C-Reactive Protein 48.30 mg/L (0-3.0) H 11/08/19 05:13 Total Protein 6.3 g/dL (6.4-8.2) L 11/08/19 05:13 Albumin 2.3 g/dL (3.4-5.0) L 11/08/19 05:13 Globulin 4.0 g/dL (2.5-4.5) 11/08/19 05:13 Albumin/Globulin Ratio 0.6 Ratio (1.1-2.1) L 11/08/19 05:13 Amylase 69 Units/L (25-115) 11/06/19 12:53 Lipase 471 Units/L (73-393) H 11/06/19 12:53 Specimen Type Clean catch urine 11/06/19 18:00 Urine Color Yellow (YELLOW) 11/06/19 18:00 Urine Appearance Clear (CLEAR) 11/06/19 18:00 Urine pH 5.0 (5.0 - 8.0) 11/06/19 18:00 Ur Specific [place] 1.020 (1.000-1.030) 11/06/19 18:00 Urine Protein 2+ (NEGATIVE) 11/06/19 18:00 Urine Glucose (UA) 4+ (NEGATIVE) 11/06/19 18:00 Urine Ketones 2+ (NEGATIVE) 11/06/19 18:00 Urine Occult Blood Negative (NEGATIVE) 11/06/19 18:00 Urine Nitrite Negative (NEGATIVE) 11/06/19 18:00 Urine Bilirubin Negative (NEGATIVE) 11/06/19 18:00 Urine Urobilinogen Normal (NORMAL) 11/06/19 18:00 Ur Leukocyte Esterase Negative (NEGATIVE) 11/06/19 18:00 Urine RBC None seen /HPF (0-3) 11/06/19 18:00 Urine WBC 0-2 /HPF (0-5) 11/06/19 18:00 Ur Squamous Epith Cells Rare /HPF (NEGATIVE) 11/06/19 18:00 Amorphous Sediment Trace /HPF (NEGATIVE) 11/06/19 18:00 Urine Bacteria Negative /HPF (NEGATIVE) 11/06/19 18:00 Hyaline Casts Rare /LPF (NEGATIVE) 11/06/19 18:00 Urine Mucus Moderate /HPF (NEGATIVE) 11/06/19 18:00 Ur Culture Indicated? No/not indicated 11/06/19 18:00 Acetone, Semi-Quant Negative (NEGATIVE) 11/06/19 12:53 Influenza Type A Ag Negative-presumptive (NEGATIVE) 11/06/19 15:30 Influenza Type B Ag Negative-presumptive (NEGATIVE) 11/06/19 15:30 SARS-CoV-2 (PCR) Positive (NEGATIVE) A 11/06/19 15:30 S. pyogenes (TEM-PCR) Not detected (NOT DETECT) 11/06/19 15:30 - Plan (1) COVID-19 Status: Acute Plan: ADMIT, NS AT 25ML/HR, LEVAQUIN 750MG IV DAILY, ROBITUSSIN DM 10M PO QID, TUSSIONEX 5ML PO Q12H, AND DUONEBS Q6H, REMDESIVIR 100MG IV DAILY, SOLU-MEDROL 80MG IV Q8H, HUMULIN R SLIDING SCALE (2) Pneumonia Status: Acute Qualifiers: Pneumonia type: due to unspecified organism Laterality: bilateral Lung location: lower lobe of lung Qualified Code(s): J18.9 - Pneumonia, unspecified organism (3) Hyponatremia Status: Acute (4) Hypotension Status: Acute Qualifiers: Hypotension type: unspecified hypotension type Qualified Code(s): I95.9 - Hypotension, unspecified (5) Diabetes Status: Chronic Qualifiers: Diabetes mellitus type: type 2 Diabetes mellitus correction insulin use: unspecified intermediate accountant insulin use status Diabetes mellitus complication status: with hyperglycemia Qualified Code(s): E11.65 - Type 2 diabetes mellitus with hyperglycemia Plan: CONTINUE HOME MEDS, CONTINUE TO MONITOR (6) Depression Status: Chronic Qualifiers: Depression Type: unspecified Qualified Code(s): F32.9 - Major depressive disorder, single episode, unspecified Plan: CONTINUE HOME MEDS, CONTINUE TO MONITOR
[2019-11-08] MEDS: SNACK - Diabetic Appropriate PO SCH (20:00)
[2019-11-08] MEDS: LOVASTATIN 20 MG PO SCH (21:11)
[2019-11-09] MEDS: NS 1000 ML 1,000 ML IV SCH ×5 (00:14→20:51)
[2019-11-09] MEDS: NORCO 5/325 MG TAB PO PRN (00:15)
[2019-11-09] MEDS: TORADOL 30 MG VIAL IVP SCH ×3 (03:23→17:21)
[2019-11-09 05:09] LABS: BASOPHILS % (AUTO) 0.5 % (0.2-1.0); HEMATOCRIT 36.6 % (36.0-47.0); HEMOGLOBIN 12.1 g/dL (12.0-16.0); LYMPHOCYTES # (AUTO) 0.4 X10^3/uL (1.3-2.9); LYMPHOCYTES % (AUTO) 12.4 % (21.0-51.0); MEAN CORPUSCULAR HEMOGLOBIN 28.8 pg (27.0-34.0); MEAN CORPUSCULAR HGB CONC 33.1 g/dL (33.0-35.0); MEAN CORPUSCULAR VOLUME 87.1 fL (80.0-100.0); MEAN PLATELET VOLUME 8.1 fL (7.4-11.0); MONOCYTES # (AUTO) 0.2 x10^3/uL (0.3-0.8); MONOCYTES % (AUTO) 4.9 % (0.0-13.0); NEUTROPHILS # (AUTO) 2.9 x10^3/uL (2.2-4.8); NEUTROPHILS % (AUTO) 82.2 % (42.0-75.0); PLATELET COUNT 235 X10^3/uL (150.0-450.0); RED BLOOD COUNT 4.21 X10^6/uL (3.5-5.4); RED CELL DISTRIBUTION WIDTH 13.9 % (11.6-16.5); WHITE BLOOD COUNT 3.5 X10^3/uL (3.6-10.0)
[2019-11-09 05:40] LABS: ALANINE AMINOTRANSFERASE 99 Units/L (12-78); ALBUMIN 2.3 g/dL (3.4-5.0); ALKALINE PHOSPHATASE 339 Units/L (46-116); ASPARTATE AMINO TRANSFERASE 78 Units/L (15-37); BLOOD UREA NITROGEN 12 mg/dL (7-18); CALCIUM 8.3 mg/dL (8.5-10.1); CHLORIDE 107 mmol/L (98-107); COR CA(FOR HYPOALB) 9.7 mg/dL (8.5-10.1); COR NA(FOR HYPERGLY) 141 mmol/L (136-145); CREATININE 0.66 mg/dL (0.55-1.02); SODIUM 139 mmol/L (136-145); TOTAL PROTEIN 6.6 g/dL (6.4-8.2); eGFR NON BLACK RACES > 60 (>60)
[2019-11-09 05:42] LABS: CARBON DIOXIDE 13.5 mmol/L (21-32)
[2019-11-09] MEDS: SOLU-Medrol 40 MG VIAL IVP SCH ×3 (06:00→21:02)
--- NOTE | 2019-11-09 06:04 | RAD ---
Chest AP portableIndication: Dyspnea.[email or web address] [email or web address] is no pneumothorax or effusion. Heart size within normal limits. Monitor leads obscure detail.IMPRESSION: Patchy pulmonary opacities, somewhat peripherally distributed again noted, most compatible with viral pneumonitis. Link virus infection presumed. Other etiologies possible.Electronically signed by: JUAN CARLOS GODINEZ (Nov 09, 2019 06:03:20)
[2019-11-09] MEDS ORDERED: GLUCOPHAGE ONE ×2 (08:29→19:55)
[2019-11-09] MEDS ORDERED: SYNTHROID 50 mcg TAB ONE (08:29)
[2019-11-09] MEDS: VORTIOXETINE 5 MG PO SCH (09:15)
[2019-11-09] MEDS: ROBITUSSIN DM PO SCH ×4 (09:15→20:54)
[2019-11-09] MEDS: LEVAQUIN PREMIX IV 750 MG 750 MG/150 ML BAG IV SCH (09:15)
[2019-11-09] MEDS: VSL#3 PO SCH (09:15)
[2019-11-09] MEDS: NexIUM PO SCH (09:15)
[2019-11-09] MEDS: REMDESIVIR (INVESTIGATIONAL DRUG GS-5734) 100 MG in NS 250 ML IV 250 ML IV SCH (09:15)
[2019-11-09] MEDS: GLUCOPHAGE PO SCH ×2 (09:15→20:51)
[2019-11-09] MEDS: PATIENT'S HOME MEDICATION (Empagliflozin [Jardiance] 25 MG) PO SCH (09:15)
[2019-11-09] MEDS: LOVENOX INJ 40 MG SYR SC SCH (09:15)
[2019-11-09] MEDS: SYNTHROID 50 mcg TAB PO SCH ×2 (09:15→20:55)
[2019-11-09] MEDS: HEMOCYTE-PLUS PO SCH (09:15)
--- NOTE | 2019-11-09 09:42 | PCM.PROG ---
Progress Note - Progress Note for Day of Date of Exam: 11/09/19 - Subjective Subjective: IS BEING TREATED FOR COVID-19, PNEUMONIA, HYPONATREIA, AND HYPOTENSION. TODAY, SHE IS ALERT AND ORIENTED, LYING IN BED ON MORNING ROUNDS. SHE CONTINUES WITH COMPLAINTS OF CONGESTION, WEAKNESS, AND HEADACHE TODAY. SHE REPORTS THAT SYMPTOMS SEEM TO BE SLIGHTLY WORSE TODAY. ON EXAMINATION, HEART IS REGULAR IN RATE AND RHYTHM. BILATERAL LUNGS ARE NOTED WITH SCATTERED WHEEZING THROUGHOUT. ABDOMEN IS ROUND, SOFT, AND NON-TENDER WITH NORMAL BOWEL SOUNDS NOTED IN ALL QUADRANTS. HER VITALS THIS MORNING ARE 97.7-84-24-100%-111/59. LABS WERE OBTAINED. ABNORMAL LAB VALUES INCLUDE THE FOLLOWING: WBC 3.5, CARBON DIOXIDE 13.5, GLUCOSE 164, CALCIUM 8.3, FERRITIN 268, AST 78, ALT 99, ALK PHOS 339, CRP 66.0, ALBUMIN 2.3. AN ABG WAS OBTAINED YESTERDAY AND REVEALED: PH 7.340, PC02 25.0, P02 65.0, HC03 13.5, BASE EXCESS -10.6, FI02 28.0. BLOOD CULTURES ARE PENDING. A CHEST XRAY WAS OBTAINED THIS MORNING AND REVEALED: Patchy pulmonary opacities, somewhat peripherally distributed again noted, most compatible with viral pneumonitis. Link virus infection presumed. Other etiologies possible. SHE IS CURRENTLY RECEIVING NS AT 25ML/HR, LEVAQUIN 750MG IV DAILY, REMDESIVIR 100MG IV DAILY, SOLU-MEDROL 80MG IV Q8H, HUMULIN R SLIDING SCALE TORADOL 30MG IV Q8H, ROBITUSSIN DM 10M PO QID, TUSSIONEX 5ML PO Q12H, AND DUONEBS Q6H. WE WILL OBTAIN AN ABG TODAY. WE WILL START PLAQUENIL 200MG PO BID X 5 DAYS. OTHERWISE, WE WILL FOLLOW UP WITH AM LABS AND CHEST XRAY AND CONTINUE TO MONITOR. - Past Medical Family Social History Past Med/Fam/Surg Hx: No changes since H&P Allergies: Allergies No Known Drug Allergies Allergy (Verified 11/06/19 13:06) - Review of Systems ROS: No change since H&P - Vital Signs and I&O's Vital Signs: Temperature 97.7 F Pulse Rate [Apical] 84 Pulse Rate 95 Respiratory Rate 24 Blood Pressure [Left Arm] 111/59 Blood Pressure 91/54 O2 Sat by Pulse Oximetry 95 Intake and Output: Intake & Output 11/06/19 11/07/19 11/08/19 11/09/19 11:59 11:59 11:59 11:59 Intake Total 3050 / 3050 4810 / 4810 5910 / 5910 Output Total 0 / 0 0 / 0 Balance 3050 / 3050 4810 / 4810 5910 / 5910 - Physical Exam Oriented: Normal Eyes: Normal Ear: Normal Nose: Normal Throat: Normal Respiratory: Generalized, Diminished, Wheezes Cardiovascular: Normal : Normal Auscultation: Bowel Sounds: Normal Tenderness: Normal Skin: Normal Musculoskeletal: Normal Psychiatric: Normal Mood Description: Calm Affect: Normal Speech Pattern: Clear, Appropriate - Laboratory and Diagnostics Result Diagrams: 11/09/19 04:20 11/09/19 04:20 Labs: 11/06/19 12:59 Blood Blood Culture - Preliminary 11/06/19 12:53 Blood Blood Culture - Preliminary Laboratory WBC 3.5 X10^3/uL (3.6-10.0) L 11/09/19 04:20 RBC 4.21 X10^6/uL (3.5-5.4) 11/09/19 04:20 Hgb 12.1 g/dL (12.0-16.0) 11/09/19 04:20 Hct 36.6 % (36.0-47.0) 11/09/19 04:20 MCV 87.1 fL (80.0-100.0) 11/09/19 04:20 MCH 28.8 pg (27.0-34.0) 11/09/19 04:20 MCHC 33.1 g/dL (33.0-35.0) 11/09/19 04:20 RDW 13.9 % (11.6-16.5) 11/09/19 04:20 Plt Count 235 X10^3/uL (150.0-450.0) 11/09/19 04:20 MPV 8.1 fL (7.4-11.0) 11/09/19 04:20 Neut % (Auto) 82.2 % (42.0-75.0) H 11/09/19 04:20 Lymph % (Auto) 12.4 % (21.0-51.0) L 11/09/19 04:20 [place] % (Auto) 4.9 % (0.0-13.0) 11/09/19 04:20 Eos % (Auto) 0.0 % (0.9-2.9) L 11/09/19 04:20 Baso % (Auto) 0.5 % (0.2-1.0) 11/09/19 04:20 Neut # (Auto) 2.9 x10^3/uL (2.2-4.8) 11/09/19 04:20 Lymph # (Auto) 0.4 X10^3/uL (1.3-2.9) L 11/09/19 04:20 [place] # (Auto) 0.2 x10^3/uL (0.3-0.8) L 11/09/19 04:20 Eos # (Auto) 0.0 x10^3/uL (0.0-0.2) 11/09/19 04:20 Baso # (Auto) 0.0 X10^3/uL (0.0-0.1) 11/09/19 04:20 Absolute Nucleated RBC 0.1 /100WBC 11/09/19 04:20 Sample Site Left brachial 11/08/19 10:26 ABG pH 7.340 (7.35-7.45) L 11/08/19 10:26 ABG pCO2 25.0 mmHg (35.0-45.0) L 11/08/19 10:26 ABG pO2 65.0 mmHg (80.0-100.0) L 11/08/19 10:26 ABG HCO3 13.5 mmol/L (22-26) L* 11/08/19 10:26 ABG O2 Saturation 91.0 % (90-100) 11/08/19 10:26 ABG Base Excess -10.6 mmol/L (-2.0-2.0) L 11/08/19 10:26 Dieter Test Na 11/08/19 10:26 A-a Gradient 103.0 mmHg 11/08/19 10:26 FiO2 28.0 11/08/19 10:26 Blood Gas Comments Serafin well aw 11/08/19 10:26 Sodium 139 mmol/L (136-145) 11/09/19 04:20 Corrected Sodium 141 mmol/L (136-145) 11/09/19 04:20 Potassium 4.1 mmol/L (3.5-5.1) 11/09/19 04:20 Chloride 107 mmol/L (98-107) 11/09/19 04:20 Carbon Dioxide 13.5 mmol/L (21-32) L* 11/09/19 04:20 BUN 12 mg/dL (7-18) 11/09/19 04:20 Creatinine 0.66 mg/dL (0.55-1.02) 11/09/19 04:20 Est GFR (MDRD) Af Amer > 60 (>60) 11/09/19 04:20 Est GFR (MDRD) Non-Af > 60 (>60) 11/09/19 04:20 Glucose 164 mg/dL (65-99) H 11/09/19 04:20 Lactic Acid 1.6 mmol/L (0.4-2.0) 11/06/19 12:53 Calcium 8.3 mg/dL (8.5-10.1) L 11/09/19 04:20 Corrected Calcium 9.7 mg/dL (8.5-10.1) 11/09/19 04:20 Magnesium 2.0 mg/dL (1.7-2.9) 11/08/19 05:13 Ferritin 268 ng/mL (8-252) H 11/09/19 04:20 Total Bilirubin 0.20 mg/dL (0.2-1.0) 11/09/19 04:20 AST 78 Units/L (15-37) H 11/09/19 04:20 ALT 99 Units/L (12-78) H 11/09/19 04:20 Alkaline Phosphatase 339 Units/L (46-116) H 11/09/19 04:20 Lactate Dehydrogenase 283 Units/L (81-234) H 11/06/19 12:53 C-Reactive Protein 66.00 mg/L (0-3.0) H 11/09/19 04:20 Total Protein 6.6 g/dL (6.4-8.2) 11/09/19 04:20 Albumin 2.3 g/dL (3.4-5.0) L 11/09/19 04:20 Globulin 4.3 g/dL (2.5-4.5) 11/09/19 04:20 Albumin/Globulin Ratio 0.5 Ratio (1.1-2.1) L 11/09/19 04:20 Amylase 69 Units/L (25-115) 11/06/19 12:53 Lipase 471 Units/L (73-393) H 11/06/19 12:53 Specimen Type Clean catch urine 11/06/19 18:00 Urine Color Yellow (YELLOW) 11/06/19 18:00 Urine Appearance Clear (CLEAR) 11/06/19 18:00 Urine pH 5.0 (5.0 - 8.0) 11/06/19 18:00 Ur Specific [place] 1.020 (1.000-1.030) 11/06/19 18:00 Urine Protein 2+ (NEGATIVE) 11/06/19 18:00 Urine Glucose (UA) 4+ (NEGATIVE) 11/06/19 18:00 Urine Ketones 2+ (NEGATIVE) 11/06/19 18:00 Urine Occult Blood Negative (NEGATIVE) 11/06/19 18:00 Urine Nitrite Negative (NEGATIVE) 11/06/19 18:00 Urine Bilirubin Negative (NEGATIVE) 11/06/19 18:00 Urine Urobilinogen Normal (NORMAL) 11/06/19 18:00 Ur Leukocyte Esterase Negative (NEGATIVE) 11/06/19 18:00 Urine RBC None seen /HPF (0-3) 11/06/19 18:00 Urine WBC 0-2 /HPF (0-5) 11/06/19 18:00 Ur Squamous Epith Cells Rare /HPF (NEGATIVE) 11/06/19 18:00 Amorphous Sediment Trace /HPF (NEGATIVE) 11/06/19 18:00 Urine Bacteria Negative /HPF (NEGATIVE) 11/06/19 18:00 Hyaline Casts Rare /LPF (NEGATIVE) 11/06/19 18:00 Urine Mucus Moderate /HPF (NEGATIVE) 11/06/19 18:00 Ur Culture Indicated? No/not indicated 11/06/19 18:00 Acetone, Semi-Quant Negative (NEGATIVE) 11/06/19 12:53 Influenza Type A Ag Negative-presumptive (NEGATIVE) 11/06/19 15:30 Influenza Type B Ag Negative-presumptive (NEGATIVE) 11/06/19 15:30 SARS-CoV-2 (PCR) Positive (NEGATIVE) A 11/06/19 15:30 S. pyogenes (TEM-PCR) Not detected (NOT DETECT) 11/06/19 15:30 - Plan (1) COVID-19 Status: Acute Plan: NS AT 25ML/HR, LEVAQUIN 750MG IV DAILY, ROBITUSSIN DM 10M PO QID, TUSSIONEX 5ML PO Q12H, AND DUONEBS Q6H, REMDESIVIR 100MG IV DAILY, SOLU-MEDROL 80MG IV Q8H, PLAQUENIL 200MG PO BID, HUMULIN R SLIDING SCALE (2) Pneumonia Status: Acute Qualifiers: Pneumonia type: due to unspecified organism Laterality: bilateral Lung location: lower lobe of lung Qualified Code(s): J18.9 - Pneumonia, unspecified organism (3) Hyponatremia Status: Acute (4) Hypotension Status: Acute Qualifiers: Hypotension type: unspecified hypotension type Qualified Code(s): I95.9 - Hypotension, unspecified (5) Diabetes Status: Chronic Qualifiers: Diabetes mellitus type: type 2 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
[2019-11-09] MEDS: XOPENEX 1.25 MG/3 ML NEBULE NEB PRN ×2 (11:58→17:00)
[2019-11-09] MEDS: PLAQUENIL PO SCH ×2 (12:00→20:53)
[2019-11-09] MEDS: HumuLIN R SUBCUT PRN ×3 (12:26→21:02)
[2019-11-09] MEDS ORDERED: LOPRESSOR TAB 25 MG ONE (19:55)
[2019-11-09] MEDS: SNACK - Diabetic Appropriate PO SCH (20:00)
[2019-11-09] MEDS: LOPRESSOR TAB 25 MG PO SCH (20:51)
[2019-11-09] MEDS: LOVASTATIN 20 MG PO SCH (20:52)
[2019-11-10] MEDS: XOPENEX 1.25 MG/3 ML NEBULE NEB PRN ×4 (00:30→17:33)
[2019-11-10] MEDS: TUSSIONEX PENNKINETIC SUSP PO PRN (01:35)
[2019-11-10] MEDS: NS 1000 ML 1,000 ML IV SCH ×4 (02:52→21:17)
[2019-11-10] MEDS: TORADOL 30 MG VIAL IVP SCH ×3 (04:00→18:22)
[2019-11-10] MEDS: SOLU-Medrol 40 MG VIAL IVP SCH ×3 (05:14→21:12)
[2019-11-10 05:17] LABS: BASOPHILS % (AUTO) 0.2 % (0.2-1.0); HEMOGLOBIN 12.3 g/dL (12.0-16.0); LYMPHOCYTES # (AUTO) 0.8 X10^3/uL (1.3-2.9); LYMPHOCYTES % (AUTO) 6.3 % (21.0-51.0); MEAN CORPUSCULAR HEMOGLOBIN 28.6 pg (27.0-34.0); MEAN CORPUSCULAR HGB CONC 32.3 g/dL (33.0-35.0); MEAN CORPUSCULAR VOLUME 88.7 fL (80.0-100.0); MEAN PLATELET VOLUME 7.8 fL (7.4-11.0); MONOCYTES # (AUTO) 0.6 x10^3/uL (0.3-0.8); MONOCYTES % (AUTO) 4.7 % (0.0-13.0); NEUTROPHILS # (AUTO) 10.6 x10^3/uL (2.2-4.8); NEUTROPHILS % (AUTO) 88.8 % (42.0-75.0); PLATELET COUNT 378 X10^3/uL (150.0-450.0); RED BLOOD COUNT 4.28 X10^6/uL (3.5-5.4); RED CELL DISTRIBUTION WIDTH 14.3 % (11.6-16.5)
[2019-11-10 05:25] LABS: ALANINE AMINOTRANSFERASE 79 Units/L (12-78); ALBUMIN 2.4 g/dL (3.4-5.0); ALKALINE PHOSPHATASE 301 Units/L (46-116); ASPARTATE AMINO TRANSFERASE 38 Units/L (15-37); BLOOD UREA NITROGEN 13 mg/dL (7-18); CALCIUM 8.4 mg/dL (8.5-10.1); CHLORIDE 108 mmol/L (98-107); COR CA(FOR HYPOALB) 9.7 mg/dL (8.5-10.1); COR NA(FOR HYPERGLY) 142 mmol/L (136-145); CREATININE 0.74 mg/dL (0.55-1.02); SODIUM 140 mmol/L (136-145); TOTAL PROTEIN 6.5 g/dL (6.4-8.2); eGFR NON BLACK RACES > 60 (>60)
[2019-11-10 05:27] LABS: WHITE BLOOD COUNT 11.9 X10^3/uL (3.6-10.0)
[2019-11-10] MEDS: PATIENT'S HOME MEDICATION (Empagliflozin [Jardiance] 25 MG) PO SCH (08:43)
[2019-11-10] MEDS: K-DUR TAB 20 MEQ PO PRN (08:43)
[2019-11-10] MEDS: GLUCOPHAGE ONE ×2 (08:43→08:47)
[2019-11-10] MEDS: VSL#3 PO SCH (08:44)
[2019-11-10] MEDS: VORTIOXETINE 5 MG PO SCH (08:44)
[2019-11-10] MEDS: PLAQUENIL PO SCH ×2 (08:45→21:12)
[2019-11-10] MEDS: ROBITUSSIN DM PO SCH ×4 (08:45→21:12)
[2019-11-10] MEDS: HEMOCYTE-PLUS PO SCH (08:45)
[2019-11-10] MEDS: NexIUM PO SCH (08:45)
[2019-11-10] MEDS: LEVAQUIN PREMIX IV 750 MG 750 MG/150 ML BAG IV SCH (08:47)
[2019-11-10] MEDS: LOPRESSOR TAB 25 MG PO SCH ×2 (08:47→21:10)
[2019-11-10] MEDS: LOVENOX INJ 40 MG SYR SC SCH (08:48)
[2019-11-10] MEDS: GLUCOPHAGE PO SCH ×2 (08:49→21:09)
[2019-11-10] MEDS ORDERED: SODIUM BICARBONATE 8.4% INJ ADULT IVP ONE (09:56)
[2019-11-10] MEDS: REMDESIVIR (INVESTIGATIONAL DRUG GS-5734) 100 MG in NS 250 ML IV 250 ML IV SCH (10:00)
[2019-11-10] MEDS: HumuLIN R SUBCUT PRN ×3 (12:10→21:13)
[2019-11-10] MEDS ORDERED: NS 250 ML IV 250 ML IV ONE (15:15)
--- NOTE | 2019-11-10 16:47 | CT ---
HISTORYSOB, RESPIRATORY DISTRESSSTUDYCTA CHESTCOMPARISONNoneTECHNIQUEMultiple axial images of the chest were obtained from the thoracic inlet to the upper abdomen after the administration of IV contrast. 3D reconstructions utilizing axial MIPS imaging was performed and reviewed. Dose reduction techniques including Automated Exposure Control (AEC) and adjustment of mA and kV were utilized.FINDINGSPulmonary arteries: There is no central filling defects of the pulmonary arterial system to suggest acute pulmonary emboli.Mediastinum: Mild mediastinal and hilar adenopathy with pretracheal lymph nodes measuring up to 11 mm in short axis and 13 mm right hilar lymph node, as well as 8 mm left hilar lymph node. Heart size is within normal limits. No paricardial effusion The thoracic aorta is normal in its contour without evidence for aneurysmal dilatation.Lungs: Extensive bilateral geographic ground-glass attenuation, peripheral predominant, more consolidated at the posterior lung bases. No pleural effusion. No pneumothorax. The central airway is grossly patent.Chest wall: No axillary adenopathy.Bones: No aggressive osseus lesion or acute fracture.Upper abdomen: The visualized portions of the upper abdomen are grossly unremarkable.Status post cholecystectomyIMPRESSIONNo evidence of acute pulmonary emboli.Lung findings typical for COVID pneumonia. Similar appearance could also be seen with organizing pneumonia or drug sensitivity reaction.Mild mediastinal and hilar adenopathy, likely reactive.Electronically signed by: Laureen Andersen (Nov 10, 2019 16:46:18)
[2019-11-10] MEDS: MAGNESIUM SULFATE 1 GRAM/100 mL PREMIX 1 GM/100 ML BAG IV PRN ×2 (17:35→18:45)
[2019-11-10] MEDS: SNACK - Diabetic Appropriate PO SCH (20:33)
[2019-11-10] MEDS ORDERED: GLUCOPHAGE ONE (20:53)
[2019-11-10] MEDS: LOVASTATIN 20 MG PO SCH (21:11)
[2019-11-10] MEDS: SYNTHROID 50 mcg TAB PO SCH (21:15)
--- NOTE | 2019-11-10 23:09 | PCM.PROG ---
Progress Note - Progress Note for Day of Date of Exam: 11/10/19 - Subjective Subjective: IS BEING TREATED FOR COVID-19, PNEUMONIA, AND HYPONATREIA. TODAY, SHE IS ALERT AND ORIENTED, LYING IN BED ON MORNING ROUNDS. SHE CONTINUES WITH COMPLAINTS OF CONGESTION, WEAKNESS, AND HEADACHE TODAY. HER BREATHING APPEARS TO BE MORE LABORED THIS MORNING. ON EXAMINATION, SHE IS NOTED TO BE TACHYCARDIC. BILATERAL LUNGS ARE NOTED WITH SCATTERED WHEEZING THROUGHOUT. ABDOMEN IS ROUND, SOFT, AND NON-TENDER WITH NORMAL BOWEL SOUNDS NOTED IN ALL QUADRANTS. HER VITALS THIS MORNING ARE 97.7-119-32-96%HHF-105/56. LABS WERE OBTAINED. ABNORMAL LAB VALUES INCLUDE THE FOLLOWING: WBC 11.9, CHLORIDE 108, CARBON DIOXIDE 9.0, GLUCOSE 190, CALCIUM 8.4, MAGNESIUM 1.5, FERRITIN 264, AST 38, ALT 79, ALK PHOS 301, CRP 26.70, ALBUMIN 2.4. BLOOD CULTURES ARE PENDING. RESPIRATORY THERAPY WAS UNABLE TO OBTAIN AN ABG. SHE IS CURRENTLY RECEIVING NS AT 25ML/HR, LEVAQUIN 750MG IV DAILY, REMDESIVIR 100MG IV DAILY, SOLU-MEDROL 80MG IV Q8H, PLAQUENIL 200MG PO BID, HUMULIN R SLIDING SCALE TORADOL 30MG IV Q8H, ROBITUSSIN DM 10M PO QID, TUSSIONEX 5ML PO Q12H, AND DUONEBS Q6H. WE WILL OBTAIN A CHEST CTA TODAY, LACTIC ACID LEVEL, AND ADMINISTER ONE AMP OF SODIUM BICARB. OTHERWISE, WE WILL FOLLOW UP WITH AM LABS AND CHEST XRAY AND CONTINUE TO MONITOR. - Past Medical Family Social History Past Med/Fam/Surg Hx: No changes since H&P Allergies: Allergies No Known Drug Allergies Allergy (Verified 11/06/19 13:06) - Review of Systems ROS: No change since H&P - Vital Signs and I&O's Vital Signs: Temperature 98.4 F Pulse Rate [Apical] 121 Pulse Rate 103 Respiratory Rate 30 Blood Pressure [Left Arm] 109/63 Blood Pressure 113/57 O2 Sat by Pulse Oximetry 96 Intake and Output: Intake & Output 11/08/19 11/09/19 11/10/19 11/11/19 11:59 11:59 11:59 11:59 Intake Total 4810 / 4810 5910 / 5910 5305 / 5305 2330 / 2330 Output Total 0 / 0 0 / 0 Balance 4810 / 4810 5910 / 5910 5305 / 5305 2329 / 2329 - Physical Exam Oriented: Normal Eyes: Normal Ear: Normal Nose: Normal Throat: Normal Respiratory: Generalized, Diminished, Wheezes Cardiovascular: Normal : Normal Auscultation: Bowel Sounds: Normal Palpation: Normal Tenderness: Normal Skin: Normal Musculoskeletal: Normal Psychiatric: Normal Mood Description: Calm Affect: Normal Speech Pattern: Clear, Appropriate - Laboratory and Diagnostics Result Diagrams: 11/10/19 04:35 11/10/19 04:35 Labs: 11/06/19 12:59 Blood Blood Culture - Preliminary 11/06/19 12:53 Blood Blood Culture - Preliminary Laboratory WBC 11.9 X10^3/uL (3.6-10.0) H D 11/10/19 04:35 RBC 4.28 X10^6/uL (3.5-5.4) 11/10/19 04:35 Hgb 12.3 g/dL (12.0-16.0) 11/10/19 04:35 Hct 38.0 % (36.0-47.0) 11/10/19 04:35 MCV 88.7 fL (80.0-100.0) 11/10/19 04:35 MCH 28.6 pg (27.0-34.0) 11/10/19 04:35 MCHC 32.3 g/dL (33.0-35.0) L 11/10/19 04:35 RDW 14.3 % (11.6-16.5) 11/10/19 04:35 Plt Count 378 X10^3/uL (150.0-450.0) 11/10/19 04:35 MPV 7.8 fL (7.4-11.0) 11/10/19 04:35 Neut % (Auto) 88.8 % (42.0-75.0) H 11/10/19 04:35 Lymph % (Auto) 6.3 % (21.0-51.0) L 11/10/19 04:35 [place] % (Auto) 4.7 % (0.0-13.0) 11/10/19 04:35 Eos % (Auto) 0.0 % (0.9-2.9) L 11/10/19 04:35 Baso % (Auto) 0.2 % (0.2-1.0) 11/10/19 04:35 Neut # (Auto) 10.6 x10^3/uL (2.2-4.8) H 11/10/19 04:35 Lymph # (Auto) 0.8 X10^3/uL (1.3-2.9) L 11/10/19 04:35 [place] # (Auto) 0.6 x10^3/uL (0.3-0.8) 11/10/19 04:35 Eos # (Auto) 0.0 x10^3/uL (0.0-0.2) 11/10/19 04:35 Baso # (Auto) 0.0 X10^3/uL (0.0-0.1) 11/10/19 04:35 Absolute Nucleated RBC 0.0 /100WBC 11/10/19 04:35 Sample Site Left brachial 11/08/19 10:26 ABG pH 7.340 (7.35-7.45) L 11/08/19 10:26 ABG pCO2 25.0 mmHg (35.0-45.0) L 11/08/19 10:26 ABG pO2 65.0 mmHg (80.0-100.0) L 11/08/19 10:26 ABG HCO3 13.5 mmol/L (22-26) L* 11/08/19 10:26 ABG O2 Saturation 91.0 % (90-100) 11/08/19 10:26 ABG Base Excess -10.6 mmol/L (-2.0-2.0) L 11/08/19 10:26 Dieter Test Na 11/08/19 10:26 A-a Gradient 103.0 mmHg 11/08/19 10:26 FiO2 28.0 11/08/19 10:26 Blood Gas Comments Serafin well aw 11/08/19 10:26 Sodium 140 mmol/L (136-145) 11/10/19 04:35 Corrected Sodium 142 mmol/L (136-145) 11/10/19 04:35 Potassium 3.7 mmol/L (3.5-5.1) 11/10/19 04:35 Chloride 108 mmol/L (98-107) H 11/10/19 04:35 Carbon Dioxide 9.0 mmol/L (21-32) L* 11/10/19 04:35 BUN 13 mg/dL (7-18) 11/10/19 04:35 Creatinine 0.74 mg/dL (0.55-1.02) 11/10/19 04:35 Est GFR (MDRD) Af Amer > 60 (>60) 11/10/19 04:35 Est GFR (MDRD) Non-Af > 60 (>60) 11/10/19 04:35 Glucose 190 mg/dL (65-99) H 11/10/19 04:35 Lactic Acid 0.9 mmol/L (0.4-2.0) 11/10/19 10:10 Calcium 8.4 mg/dL (8.5-10.1) L 11/10/19 04:35 Corrected Calcium 9.7 mg/dL (8.5-10.1) 11/10/19 04:35 Magnesium 1.5 mg/dL (1.7-2.9) L 11/10/19 04:35 Ferritin 264 ng/mL (8-252) H 11/10/19 04:35 Total Bilirubin 0.30 mg/dL (0.2-1.0) 11/10/19 04:35 AST 38 Units/L (15-37) H 11/10/19 04:35 ALT 79 Units/L (12-78) H 11/10/19 04:35 Alkaline Phosphatase 301 Units/L (46-116) H 11/10/19 04:35 Lactate Dehydrogenase 283 Units/L (81-234) H 11/06/19 12:53 C-Reactive Protein 26.70 mg/L (0-3.0) H 11/10/19 04:35 Total Protein 6.5 g/dL (6.4-8.2) 11/10/19 04:35 Albumin 2.4 g/dL (3.4-5.0) L 11/10/19 04:35 Globulin 4.1 g/dL (2.5-4.5) 11/10/19 04:35 Albumin/Globulin Ratio 0.6 Ratio (1.1-2.1) L 11/10/19 04:35 Amylase 69 Units/L (25-115) 11/06/19 12:53 Lipase 471 Units/L (73-393) H 11/06/19 12:53 Specimen Type Clean catch urine 11/06/19 18:00 Urine Color Yellow (YELLOW) 11/06/19 18:00 Urine Appearance Clear (CLEAR) 11/06/19 18:00 Urine pH 5.0 (5.0 - 8.0) 11/06/19 18:00 Ur Specific [place] 1.020 (1.000-1.030) 11/06/19 18:00 Urine Protein 2+ (NEGATIVE) 11/06/19 18:00 Urine Glucose (UA) 4+ (NEGATIVE) 11/06/19 18:00 Urine Ketones 2+ (NEGATIVE) 11/06/19 18:00 Urine Occult Blood Negative (NEGATIVE) 11/06/19 18:00 Urine Nitrite Negative (NEGATIVE) 11/06/19 18:00 Urine Bilirubin Negative (NEGATIVE) 11/06/19 18:00 Urine Urobilinogen Normal (NORMAL) 11/06/19 18:00 Ur Leukocyte Esterase Negative (NEGATIVE) 11/06/19 18:00 Urine RBC None seen /HPF (0-3) 11/06/19 18:00 Urine WBC 0-2 /HPF (0-5) 11/06/19 18:00 Ur Squamous Epith Cells Rare /HPF (NEGATIVE) 11/06/19 18:00 Amorphous Sediment Trace /HPF (NEGATIVE) 11/06/19 18:00 Urine Bacteria Negative /HPF (NEGATIVE) 11/06/19 18:00 Hyaline Casts Rare /LPF (NEGATIVE) 11/06/19 18:00 Urine Mucus Moderate /HPF (NEGATIVE) 11/06/19 18:00 Ur Culture Indicated? No/not indicated 11/06/19 18:00 Acetone, Semi-Quant Negative (NEGATIVE) 11/06/19 12:53 Influenza Type A Ag Negative-presumptive (NEGATIVE) 11/06/19 15:30 Influenza Type B Ag Negative-presumptive (NEGATIVE) 11/06/19 15:30 SARS-CoV-2 (PCR) Positive (NEGATIVE) A 11/06/19 15:30 S. pyogenes (TEM-PCR) Not detected (NOT DETECT) 11/06/19 15:30 - Plan (1) COVID-19 Status: Acute Plan: NS AT 25ML/HR, LEVAQUIN 750MG IV DAILY, ROBITUSSIN DM 10M PO QID, TUSSIONEX 5ML PO Q12H, AND DUONEBS Q6H, REMDESIVIR 100MG IV DAILY, SOLU-MEDROL 80MG IV Q8H, PLAQUENIL 200MG PO BID, HUMULIN R SLIDING SCALE, OBTAIN CHEST CTA (2) Pneumonia Status: Acute Qualifiers: Pneumonia type: due to unspecified organism Laterality: bilateral Lung location: lower lobe of lung Qualified Code(s): J18.9 - Pneumonia, unspecified organism (3) Hyponatremia Status: Acute (4) Hypotension Status: Acute Qualifiers: Hypotension type: unspecified hypotension type Qualified Code(s): I95.9 - Hypotension, unspecified (5) Diabetes Status: Chronic Qualifiers: Diabetes mellitus type: type 2 Diabetes mellitus intermission coordinator insulin use: unspecified assisted insulin use status Diabetes mellitus complication status: with hyperglycemia Qualified Code(s): E11.65 - Type 2 diabetes mellitus with hyperglycemia Plan: CONTINUE HOME MEDS, CONTINUE TO MONITOR (6) Depression Status: Chronic Qualifiers: Depression Type: unspecified Qualified Code(s): F32.9 - Major depressive disorder, single episode, unspecified Plan: CONTINUE HOME MEDS, CONTINUE TO MONITOR
[2019-11-11] MEDS: TUSSIONEX PENNKINETIC SUSP PO PRN ×3 (00:35→23:30)
[2019-11-11] MEDS: NS 1000 ML 1,000 ML IV SCH ×3 (02:57→16:36)
[2019-11-11] MEDS: TORADOL 30 MG VIAL IVP SCH ×3 (02:57→18:28)
[2019-11-11 05:53] LABS: BASOPHILS % (AUTO) 0.2 % (0.2-1.0); HEMATOCRIT 34.3 % (36.0-47.0); HEMOGLOBIN 11.6 g/dL (12.0-16.0); LYMPHOCYTES # (AUTO) 0.3 X10^3/uL (1.3-2.9); LYMPHOCYTES % (AUTO) 3.1 % (21.0-51.0); MEAN CORPUSCULAR HEMOGLOBIN 29.1 pg (27.0-34.0); MEAN CORPUSCULAR HGB CONC 33.7 g/dL (33.0-35.0); MEAN CORPUSCULAR VOLUME 86.3 fL (80.0-100.0); MONOCYTES # (AUTO) 0.5 x10^3/uL (0.3-0.8); MONOCYTES % (AUTO) 5.3 % (0.0-13.0); NEUTROPHILS # (AUTO) 9.1 x10^3/uL (2.2-4.8); NEUTROPHILS % (AUTO) 91.4 % (42.0-75.0); PLATELET COUNT 369 X10^3/uL (150.0-450.0); RED BLOOD COUNT 3.98 X10^6/uL (3.5-5.4); RED CELL DISTRIBUTION WIDTH 14.1 % (11.6-16.5)
--- NOTE | 2019-11-11 06:17 | RAD ---
HISTORYShortness of breathSTUDYChest AP [id number]/08/2020 chest x-ray, CTA chest 11/10/2019FINDINGSThe heart is within normal limits in size. The tammie are normal. Peripheral ground-glass infiltrates are present throughout the right lung not significantly changed from the prior examination. Peripheral infiltrates are also present on the left unchanged from the prior examination. No pleural effusions are identified. Bony thorax is unremarkable.IMPRESSIONNo change bilateral infiltrates consistent with COVID-19 lung involvementElectronically signed by: CAREN GARCIA (Nov 11, 2019 06:16:15)
[2019-11-11] MEDS: SOLU-Medrol 40 MG VIAL IVP SCH (06:26)
[2019-11-11 06:44] LABS: PLATELET MORPHOLOGY COMMENT NORMAL (NORMAL)
[2019-11-11 07:14] LABS: ALANINE AMINOTRANSFERASE 52 Units/L (12-78); ALBUMIN 2.2 g/dL (3.4-5.0); ALKALINE PHOSPHATASE 230 Units/L (46-116); ASPARTATE AMINO TRANSFERASE 19 Units/L (15-37); BLOOD UREA NITROGEN 16 mg/dL (7-18); CALCIUM 8.3 mg/dL (8.5-10.1); CARBON DIOXIDE 15.8 mmol/L (21-32); CHLORIDE 111 mmol/L (98-107); COR CA(FOR HYPOALB) 9.7 mg/dL (8.5-10.1); COR NA(FOR HYPERGLY) 142 mmol/L (136-145); CREATININE 0.78 mg/dL (0.55-1.02); MAGNESIUM 1.8 mg/dL (1.7-2.9); SODIUM 140 mmol/L (136-145); TOTAL PROTEIN 5.8 g/dL (6.4-8.2); eGFR NON BLACK RACES > 60 (>60)
[2019-11-11] MEDS ORDERED: GLUCOPHAGE ONE ×2 (08:23→20:40)
[2019-11-11] MEDS: REMDESIVIR (INVESTIGATIONAL DRUG GS-5734) 100 MG in NS 250 ML IV 250 ML IV SCH (09:01)
[2019-11-11] MEDS: LEVAQUIN PREMIX IV 750 MG 750 MG/150 ML BAG IV SCH (09:02)
[2019-11-11] MEDS: PATIENT'S HOME MEDICATION (Empagliflozin [Jardiance] 25 MG) PO SCH (09:03)
[2019-11-11] MEDS: LOVENOX INJ 40 MG SYR SC SCH (09:03)
[2019-11-11] MEDS: VORTIOXETINE 5 MG PO SCH (09:03)
[2019-11-11] MEDS: GLUCOPHAGE PO SCH ×2 (09:05→21:35)
[2019-11-11] MEDS: LOPRESSOR TAB 25 MG PO SCH ×2 (09:05→21:35)
[2019-11-11] MEDS: HEMOCYTE-PLUS PO SCH (09:06)
[2019-11-11] MEDS: NexIUM PO SCH (09:06)
[2019-11-11] MEDS: PLAQUENIL PO SCH ×2 (09:06→21:40)
[2019-11-11] MEDS: ROBITUSSIN DM PO SCH ×4 (09:07→21:45)
[2019-11-11] MEDS: VSL#3 PO SCH (09:07)
[2019-11-11] MEDS: XOPENEX 1.25 MG/3 ML NEBULE NEB PRN (11:30)
[2019-11-11] MEDS: HumuLIN R SUBCUT PRN ×2 (12:15→21:45)
[2019-11-11] MEDS ORDERED: DIFLUCAN PO ONE (18:14)
[2019-11-11] MEDS: SNACK - Diabetic Appropriate PO SCH (20:28)
[2019-11-11 20:33] LABS: ABG BASE EXCESS -15.7 mmol/L (-2.0-2.0)
[2019-11-11 20:34] LABS: ABG ALLEN TEST POS; ABG HCO3 9.4 mmol/L (22-26)
[2019-11-11] MEDS: LOVASTATIN 20 MG PO SCH (21:35)
[2019-11-11] MEDS: SYNTHROID 50 mcg TAB PO SCH (21:40)
[2019-11-11] MEDS ORDERED: SODIUM BICARBONATE TAB 650MG PO ONE ×2 (23:04→23:10)
[2019-11-12] MEDS: LOPRESSOR TAB 25 MG PO SCH ×3 (00:06→21:25)
[2019-11-12] MEDS: NS 1000 ML 1,000 ML IV SCH ×4 (00:16→21:24)
[2019-11-12] MEDS: XOPENEX 1.25 MG/3 ML NEBULE NEB PRN ×4 (00:25→17:15)
[2019-11-12] MEDS: TORADOL 30 MG VIAL IVP SCH (02:00)
[2019-11-12 05:15] LABS: BASOPHILS % (AUTO) 0.3 % (0.2-1.0); HEMATOCRIT 33.7 % (36.0-47.0); HEMOGLOBIN 11.4 g/dL (12.0-16.0); LYMPHOCYTES # (AUTO) 0.6 X10^3/uL (1.3-2.9); LYMPHOCYTES % (AUTO) 7.7 % (21.0-51.0); MEAN CORPUSCULAR HEMOGLOBIN 29.1 pg (27.0-34.0); MEAN CORPUSCULAR HGB CONC 33.9 g/dL (33.0-35.0); MEAN CORPUSCULAR VOLUME 85.8 fL (80.0-100.0); MEAN PLATELET VOLUME 6.7 fL (7.4-11.0); MONOCYTES # (AUTO) 0.4 x10^3/uL (0.3-0.8); MONOCYTES % (AUTO) 5.1 % (0.0-13.0); NEUTROPHILS # (AUTO) 6.7 x10^3/uL (2.2-4.8); NEUTROPHILS % (AUTO) 86.9 % (42.0-75.0); PLATELET COUNT 340 X10^3/uL (150.0-450.0); RED BLOOD COUNT 3.92 X10^6/uL (3.5-5.4); RED CELL DISTRIBUTION WIDTH 14.1 % (11.6-16.5); WHITE BLOOD COUNT 7.7 X10^3/uL (3.6-10.0)
[2019-11-12 05:32] LABS: ALANINE AMINOTRANSFERASE 33 Units/L (12-78); ALBUMIN 1.9 g/dL (3.4-5.0); ALKALINE PHOSPHATASE 183 Units/L (46-116); ASPARTATE AMINO TRANSFERASE 17 Units/L (15-37); BLOOD UREA NITROGEN 19 mg/dL (7-18); CARBON DIOXIDE 15.4 mmol/L (21-32); CHLORIDE 111 mmol/L (98-107); COR CA(FOR HYPOALB) 9.7 mg/dL (8.5-10.1); COR NA(FOR HYPERGLY) 143 mmol/L (136-145); CREATININE 0.72 mg/dL (0.55-1.02); SODIUM 142 mmol/L (136-145); TOTAL PROTEIN 5.2 g/dL (6.4-8.2); eGFR NON BLACK RACES > 60 (>60)
[2019-11-12 05:39] LABS: ABG BASE EXCESS -8.5 mmol/L (-2.0-2.0); ABG HCO3 16.3 mmol/L (22-26)
[2019-11-12 05:40] LABS: ABG ALLEN TEST POS
[2019-11-12] MEDS ORDERED: SODIUM BICARBONATE TAB 650MG PO ONE (06:00)
--- NOTE | 2019-11-12 06:57 | RAD ---
HISTORYSOB pneumoniaSTUDYAP [id number]/10/2020FINDINGSStable heart size. Increasing areas of bilateral confluent airspace disease, right lung greater than left. No complicating pneumothorax or large pleural effusion demonstrated.IMPRESSIONSignificant interval progression of bilateral pulmonary densities consistent with multilobar pneumonia.Electronically signed by: CHUCHO BARNES (Nov 12, 2019 06:55:55)
[2019-11-12] MEDS ORDERED: GLUCOPHAGE ONE ×2 (08:07→20:33)
[2019-11-12] MEDS: ROBITUSSIN DM PO SCH ×4 (08:27→21:25)
[2019-11-12] MEDS: LEVAQUIN PREMIX IV 750 MG 750 MG/150 ML BAG IV SCH (08:27)
[2019-11-12] MEDS: GLUCOPHAGE PO SCH ×3 (08:28→21:24)
[2019-11-12] MEDS: K-DUR TAB 20 MEQ PO PRN (08:29)
[2019-11-12] MEDS: VSL#3 PO SCH (08:30)
[2019-11-12] MEDS: HEMOCYTE-PLUS PO SCH (08:30)
[2019-11-12] MEDS: LOVENOX INJ 40 MG SYR SC SCH (08:32)
[2019-11-12] MEDS: NexIUM PO SCH (08:32)
[2019-11-12] MEDS: PATIENT'S HOME MEDICATION (Empagliflozin [Jardiance] 25 MG) PO SCH (08:46)
[2019-11-12] MEDS: VORTIOXETINE 5 MG PO SCH (08:47)
[2019-11-12] MEDS: PLAQUENIL PO SCH ×2 (08:58→21:25)
[2019-11-12] MEDS: NORCO 5/325 MG TAB PO PRN (09:30)
[2019-11-12] MEDS ORDERED: LASIX IVP ONE (09:45)
--- NOTE | 2019-11-12 10:23 | PCM.PROG ---
Progress Note Progress Note for Day of Date of Exam: 11/12/19 Subjective Subjective: PT IS A 49 YO F ADMITTED FOR COVID-19 PNEUMONIA(11/06/19) AND HYPONATREMIA. THIS MORNING SHE IS LYING IN BED WITH BIPAP ON. SHE HAS CONTINUED WEAKNESS AND DYSPNEA. NURSING HAS NOTED SHE HAS HAD MORE GENERALIZED EDEMA AND IT WAS ALSO NOTED ON EXMINATION. SHE REMAINS SLIGHTLY TACHYCARDIC, BILATERAL LUNGS ARE NOTED WITH SCATTERED WHEEZING THROUGHOUT. ABDOMEN IS ROUND, SOFT, AND NON-TENDER WITH NORMAL BOWEL SOUNDS NOTED IN ALL QUADRANTS. LABS/IMAGING: WBC 7.7, HGB 11.4, PLT 340, NA 142, K 3.3, CR 0.72, GLUC 156, BLOOD CULTURES NGTD. CXR: WORSENING BILATERAL PULMONARY DENSITIES C/W MULTILOBAR PNEUMONIA. AB.33/31/59/16.3/88% ON FIO2 42%. SHE IS CURRENTLY RECEIVING NS AT 50ML/HR, LEVAQUIN 750MG IV DAILY, REMDESIVIR 100MG IV DAILY, SOLU-MEDROL 80MG IV Q8H, PLAQUENIL 200MG PO BID, HUMULIN R SLIDING SCALE TORADOL 30MG IV Q8H, ROBITUSSIN DM 10M PO QID, TUSSIONEX 5ML PO Q12H, AND DUONEBS Q6H. SHE RECEIVED SODIUM BICARBONATE 650 X 2 OVERNIGHT AND THIS MORNING. WILL GIVE IV LASIX 40MG X1 TODAY FOR EDEMA. RT ALTERNATING BETWEEN HEATED HIFLOW AND BIPAP. WILL CONTINUE TO MONITOR AND FOLLOW UP LABS/IMAGING IN THE MORNING. Past Medical Family Social History Past Med/Fam/Surg Hx: No changes since H&P Allergies: Allergies No Known Drug Allergies Allergy (Verified 11/06/19 13:06) Review of Systems ROS: No change since H&P Vital Signs and I&O's Vital Signs: Temperature 98.0 F Pulse Rate [Apical] 121 Pulse Rate 109 Respiratory Rate 39 Blood Pressure [Left Arm] 109/63 Blood Pressure 119/60 O2 Sat by Pulse Oximetry 94 Intake and Output: Intake & Output 11/09/19 11/10/19 11/11/19 11/12/19 23:59 23:59 23:59 23:59 Intake Total 5390 / 5390 5450 / 5450 4701 / 4701 500 / 500 Output Total 0 / 0 Balance 5390 / 5390 5450 / 5450 4701 / 4701 500 / 500 Physical Exam Oriented: Normal Eyes: Normal Ear: Normal Nose: Normal Throat: Normal Respiratory: Generalized, Diminished and Wheezes Cardiovascular: Normal : Normal Auscultation: Bowel Sounds: Normal Tenderness: Normal Skin: Normal Musculoskeletal: Normal Psychiatric: Normal Mood Description: Calm Affect: Normal Speech Pattern: Clear and Appropriate Laboratory and Diagnostics Result Diagrams: 11/12/19 04:40 11/12/19 04:40 Labs: 11/06/19 12:59 Blood Blood Culture - Final 11/06/19 12:53 Blood Blood Culture - Final Laboratory WBC 7.7 X10^3/uL (3.6-10.0) 11/12/19 04:40 RBC 3.92 X10^6/uL (3.5-5.4) 11/12/19 04:40 Hgb 11.4 g/dL (12.0-16.0) L 11/12/19 04:40 Hct 33.7 % (36.0-47.0) L 11/12/19 04:40 MCV 85.8 fL (80.0-100.0) 11/12/19 04:40 MCH 29.1 pg (27.0-34.0) 11/12/19 04:40 MCHC 33.9 g/dL (33.0-35.0) 11/12/19 04:40 RDW 14.1 % (11.6-16.5) 11/12/19 04:40 Plt Count 340 X10^3/uL (150.0-450.0) 11/12/19 04:40 Plt Count Comment Adequate (ADEQUATE) 11/11/19 05:02 MPV 6.7 fL (7.4-11.0) L 11/12/19 04:40 Neut % (Auto) 86.9 % (42.0-75.0) H 11/12/19 04:40 Lymph % (Auto) 7.7 % (21.0-51.0) L 11/12/19 04:40 [place] % (Auto) 5.1 % (0.0-13.0) 11/12/19 04:40 Eos % (Auto) 0.0 % (0.9-2.9) L 11/12/19 04:40 Baso % (Auto) 0.3 % (0.2-1.0) 11/12/19 04:40 Neut # (Auto) 6.7 x10^3/uL (2.2-4.8) H 11/12/19 04:40 Lymph # (Auto) 0.6 X10^3/uL (1.3-2.9) L 11/12/19 04:40 [place] # (Auto) 0.4 x10^3/uL (0.3-0.8) 11/12/19 04:40 Eos # (Auto) 0.0 x10^3/uL (0.0-0.2) 11/12/19 04:40 Baso # (Auto) 0.0 X10^3/uL (0.0-0.1) 11/12/19 04:40 Absolute Nucleated RBC 0.0 /100WBC 11/12/19 04:40 Total Counted 100 11/11/19 05:02 Neutrophils % (Manual) 90 % (39-76) H 11/11/19 05:02 Lymphocytes % (Manual) 6 % (13-43) L 11/11/19 05:02 Monocytes % (Manual) 4 % (4-9) 11/11/19 05:02 Plt Morphology Comment Normal (NORMAL) 11/11/19 05:02 RBC Morphology Normal (NORMAL) 11/11/19 05:02 Sample Site Lr 11/12/19 05:25 ABG pH 7.330 (7.35-7.45) L 11/12/19 05:25 ABG pCO2 31.0 mmHg (35.0-45.0) L 11/12/19 05:25 ABG pO2 59.0 mmHg (80.0-100.0) L 11/12/19 05:25 ABG HCO3 16.3 mmol/L (22-26) L* 11/12/19 05:25 ABG O2 Saturation 88.0 % (90-100) L 11/12/19 05:25 ABG Base Excess -8.5 mmol/L (-2.0-2.0) L 11/12/19 05:25 Dieter Test Pos 11/12/19 05:25 A-a Gradient 202.0 mmHg 11/12/19 05:25 FiO2 42.0 11/12/19 05:25 Blood Gas Comments Serafin well ae 11/12/19 05:25 Sodium 142 mmol/L (136-145) 11/12/19 04:40 Corrected Sodium 143 mmol/L (136-145) 11/12/19 04:40 Potassium 3.3 mmol/L (3.5-5.1) L 11/12/19 04:40 Chloride 111 mmol/L (98-107) H 11/12/19 04:40 Carbon Dioxide 15.4 mmol/L (21-32) L 11/12/19 04:40 BUN 19 mg/dL (7-18) H 11/12/19 04:40 Creatinine 0.72 mg/dL (0.55-1.02) 11/12/19 04:40 Est GFR (MDRD) Af Amer > 60 (>60) 11/12/19 04:40 Est GFR (MDRD) Non-Af > 60 (>60) 11/12/19 04:40 Glucose 156 mg/dL (65-99) H 11/12/19 04:40 Lactic Acid 0.9 mmol/L (0.4-2.0) 11/10/19 10:10 Calcium 8.0 mg/dL (8.5-10.1) L 11/12/19 04:40 Corrected Calcium 9.7 mg/dL (8.5-10.1) 11/12/19 04:40 Magnesium 1.8 mg/dL (1.7-2.9) 11/11/19 05:02 Ferritin 187 ng/mL (8-252) 11/11/19 05:02 Total Bilirubin 0.20 mg/dL (0.2-1.0) 11/12/19 04:40 AST 17 Units/L (15-37) 11/12/19 04:40 ALT 33 Units/L (12-78) 11/12/19 04:40 Alkaline Phosphatase 183 Units/L (46-116) H 11/12/19 04:40 Lactate Dehydrogenase 283 Units/L (81-234) H 11/06/19 12:53 C-Reactive Protein 11.50 mg/L (0-3.0) H 11/11/19 05:02 Total Protein 5.2 g/dL (6.4-8.2) L 11/12/19 04:40 Albumin 1.9 g/dL (3.4-5.0) L 11/12/19 04:40 Globulin 3.3 g/dL (2.5-4.5) 11/12/19 04:40 Albumin/Globulin Ratio 0.6 Ratio (1.1-2.1) L 11/12/19 04:40 Amylase 69 Units/L (25-115) 11/06/19 12:53 Lipase 471 Units/L (73-393) H 11/06/19 12:53 Specimen Type Clean catch urine 11/06/19 18:00 Urine Color Yellow (YELLOW) 11/06/19 18:00 Urine Appearance Clear (CLEAR) 11/06/19 18:00 Urine pH 5.0 (5.0 - 8.0) 11/06/19 18:00 Ur Specific [place] 1.020 (1.000-1.030) 11/06/19 18:00 Urine Protein 2+ (NEGATIVE) 11/06/19 18:00 Urine Glucose (UA) 4+ (NEGATIVE) 11/06/19 18:00 Urine Ketones 2+ (NEGATIVE) 11/06/19 18:00 Urine Occult Blood Negative (NEGATIVE) 11/06/19 18:00 Urine Nitrite Negative (NEGATIVE) 11/06/19 18:00 Urine Bilirubin Negative (NEGATIVE) 11/06/19 18:00 Urine Urobilinogen Normal (NORMAL) 11/06/19 18:00 Ur Leukocyte Esterase Negative (NEGATIVE) 11/06/19 18:00 Urine RBC None seen /HPF (0-3) 11/06/19 18:00 Urine WBC 0-2 /HPF (0-5) 11/06/19 18:00 Ur Squamous Epith Cells Rare /HPF (NEGATIVE) 11/06/19 18:00 Amorphous Sediment Trace /HPF (NEGATIVE) 11/06/19 18:00 Urine Bacteria Negative /HPF (NEGATIVE) 11/06/19 18:00 Hyaline Casts Rare /LPF (NEGATIVE) 11/06/19 18:00 Urine Mucus Moderate /HPF (NEGATIVE) 11/06/19 18:00 Ur Culture Indicated? No/not indicated 11/06/19 18:00 Acetone, Semi-Quant Negative (NEGATIVE) 11/06/19 12:53 Influenza Type A Ag Negative-presumptive (NEGATIVE) 11/06/19 15:30 Influenza Type B Ag Negative-presumptive (NEGATIVE) 11/06/19 15:30 SARS-CoV-2 (PCR) Positive (NEGATIVE) A 11/06/19 15:30 S. pyogenes (TEM-PCR) Not detected (NOT DETECT) 11/06/19 15:30 Plan (1) COVID-19: Status: Acute Plan: NS AT 25ML/HR, LEVAQUIN 750MG IV DAILY, ROBITUSSIN DM 10M PO QID, TUSSIONEX 5ML PO Q12H, AND DUONEBS Q6H, REMDESIVIR 100MG IV DAILY, SOLU-MEDROL 80MG IV Q8H, PLAQUENIL 200MG PO BID, HUMULIN R SLIDING SCALE, OBTAIN CHEST CTA (2) Pneumonia: Status: Acute Qualifiers: Laterality: bilateral Lung location: lower lobe of lung Pneumonia type: due to unspecified organism Qualified Code(s): J18.9 - Pneumonia, unspecified organism (3) Hyponatremia: Status: Acute (4) Hypotension: Status: Acute Qualifiers: Hypotension type: unspecified hypotension type Qualified Code(s): I95.9 - Hypotension, unspecified (5) Diabetes: Status: Chronic Qualifiers: Diabetes mellitus complication status: with hyperglycemia Diabetes mellitus long term care pharmacist insulin use: unspecified half-way insulin use status Diabetes mellitus type: type 2 Qualified Code(s): E11.65 - Type 2 diabetes mellitus with hyperglycemia Plan: CONTINUE HOME MEDS, CONTINUE TO MONITOR (6) Depression: Status: Chronic Qualifiers: Depression Type: unspecified Qualified Code(s): F32.9 - Major depre ssive disorder, single episode, unspecified Plan: CONTINUE HOME MEDS, CONTINUE TO MONITOR
[2019-11-12] MEDS ORDERED: MAALOX or MYLANTA PO PRN (11:04)
[2019-11-12] MEDS ORDERED: MAALOX or MYLANTA ONE (11:07)
[2019-11-12] MEDS: SNACK - Diabetic Appropriate PO SCH (20:28)
[2019-11-12] MEDS: LOVASTATIN 20 MG PO SCH (21:24)
[2019-11-12] MEDS: SYNTHROID 50 mcg TAB PO SCH (21:24)
[2019-11-12] MEDS: TUSSIONEX PENNKINETIC SUSP PO PRN (21:26)
[2019-11-12] MEDS: ZOFRAN TAB 4 MG SL PRN (21:26)
[2019-11-13] MEDS: XOPENEX 1.25 MG/3 ML NEBULE NEB PRN ×4 (00:18→17:09)
[2019-11-13 05:24] LABS: HEMOGLOBIN 11.5 g/dL (12.0-16.0); MEAN PLATELET VOLUME 7.1 fL (7.4-11.0)
[2019-11-13] MEDS: NS 1000 ML 1,000 ML IV SCH ×3 (05:29→22:01)
[2019-11-13 05:32] LABS: BASOPHILS % (AUTO) 0.2 % (0.2-1.0); EOSINOPHILS # (AUTO) 0.1 x10^3/uL (0.0-0.2); HEMATOCRIT 33.6 % (36.0-47.0); LYMPHOCYTES # (AUTO) 0.8 X10^3/uL (1.3-2.9); LYMPHOCYTES % (AUTO) 13.7 % (21.0-51.0); MEAN CORPUSCULAR HEMOGLOBIN 29.5 pg (27.0-34.0); MEAN CORPUSCULAR HGB CONC 34.2 g/dL (33.0-35.0); MEAN CORPUSCULAR VOLUME 86.2 fL (80.0-100.0); MONOCYTES # (AUTO) 0.3 x10^3/uL (0.3-0.8); MONOCYTES % (AUTO) 5.6 % (0.0-13.0); NEUTROPHILS # (AUTO) 4.5 x10^3/uL (2.2-4.8); NEUTROPHILS % (AUTO) 79.5 % (42.0-75.0); PLATELET COUNT 345 X10^3/uL (150.0-450.0); RED BLOOD COUNT 3.89 X10^6/uL (3.5-5.4); RED CELL DISTRIBUTION WIDTH 13.7 % (11.6-16.5); WHITE BLOOD COUNT 5.7 X10^3/uL (3.6-10.0)
[2019-11-13 05:41] LABS: ALANINE AMINOTRANSFERASE 30 Units/L (12-78); ALKALINE PHOSPHATASE 175 Units/L (46-116); ASPARTATE AMINO TRANSFERASE 19 Units/L (15-37); BLOOD UREA NITROGEN 10 mg/dL (7-18); CALCIUM 8.1 mg/dL (8.5-10.1); CARBON DIOXIDE 23.4 mmol/L (21-32); CHLORIDE 105 mmol/L (98-107); COR CA(FOR HYPOALB) 9.7 mg/dL (8.5-10.1); COR NA(FOR HYPERGLY) 141 mmol/L (136-145); CREATININE 0.65 mg/dL (0.55-1.02); SODIUM 140 mmol/L (136-145); TOTAL PROTEIN 5.6 g/dL (6.4-8.2); eGFR NON BLACK RACES > 60 (>60)
[2019-11-13 06:08] LABS: ABG ALLEN TEST POS; ABG BASE EXCESS -2.6 mmol/L (-2.0-2.0); ABG HCO3 21.7 mmol/L (22-26)
[2019-11-13] MEDS ORDERED: GLUCOPHAGE ONE ×2 (08:38→20:29)
[2019-11-13] MEDS: PATIENT'S HOME MEDICATION (Empagliflozin [Jardiance] 25 MG) PO SCH (09:26)
[2019-11-13] MEDS: HEMOCYTE-PLUS PO SCH (09:27)
[2019-11-13] MEDS: GLUCOPHAGE PO SCH ×2 (09:27→22:01)
[2019-11-13] MEDS: LEVAQUIN PREMIX IV 750 MG 750 MG/150 ML BAG IV SCH (09:28)
[2019-11-13] MEDS: LOPRESSOR TAB 25 MG PO SCH ×2 (09:28→22:02)
[2019-11-13] MEDS: LOVENOX INJ 40 MG SYR SC SCH (09:29)
[2019-11-13] MEDS: NexIUM PO SCH (09:30)
[2019-11-13] MEDS: PLAQUENIL PO SCH ×2 (09:30→22:04)
[2019-11-13] MEDS: ROBITUSSIN DM PO SCH ×4 (09:30→22:01)
[2019-11-13] MEDS: VORTIOXETINE 5 MG PO SCH (09:31)
[2019-11-13] MEDS: VSL#3 PO SCH (09:31)
[2019-11-13] MEDS: K-DUR TAB 20 MEQ PO PRN ×3 (09:32→22:46)
--- NOTE | 2019-11-13 10:26 | PCM.PROG ---
Progress Note Progress Note for Day of Date of Exam: 11/13/19 Subjective Subjective: PT IS A 49 YO F ADMITTED FOR COVID-19 PNEUMONIA(11/06/19) AND HYPONATREMIA. THIS MORNING SHE IS IN BED WITH HIGH FLOW OXYGEN. SHE REPORTS SOME IMPROVEMENT COMPARED TO YESTERDAY. SHE RECEIVED IV LASIX 40MG X1 YESTERDAY THAT HELPED WITH GENERALIZED EDEMA. TODAY ON EXAM HEART RRR, BILATERAL LUNGS ARE NOTED WITH SCATTERED WHEEZING THROUGHOUT. ABDOMEN IS ROUND, SOFT, AND NON-TENDER WITH NORMAL BOWEL SOUNDS NOTED IN ALL QUADRANTS. LABS/IMAGING: WBC 5.7, HGB 11.5, PLT 345, NA 140, K 3.2, CR 0.65, GLUC 129, BLOOD CULTURES NGTD. CXR: WORSENING BILATERAL PULMONARY DENSITIES C/W MULTILOBAR PNEUMONIA. HER ABG HAS IMPROVED:AB.4/35/74/21/95% ON FIO2 43%. SHE IS CURRENTLY RECEIVING NS AT 50ML/HR, LEVAQUIN 750MG IV DAILY, REMDESIVIR 100MG IV DAILY, SOLU-MEDROL 80MG IV Q8H, PLAQUENIL 200MG PO BID, HUMULIN R SLIDING SCALE TORADOL 30MG IV Q8H, ROBITUSSIN DM 10M PO QID, TUSSIONEX 5ML PO Q12H, AND DUONEBS Q6H. RT ALTERNATING BETWEEN HEATED HIFLOW AND BIPAP. WILL CONTINUE TO MONITOR AND FOLLOW UP L ABS/IMAGING IN THE MORNING. Past Medical Family Social History Past Med/Fam/Surg Hx: No changes since H&P Allergies: Allergies No Known Drug Allergies Allergy (Verified 11/06/19 13:06) Review of Systems ROS: No change since H&P Vital Signs and I&O's Vital Signs: Temperature 98.3 F Pulse Rate [Apical] 121 Pulse Rate 85 Respiratory Rate 32 Blood Pressure [Left Arm] 109/63 Blood Pressure 121/61 O2 Sat by Pulse Oximetry 92 Intake and Output: Intake & Output 11/10/19 11/11/19 11/12/19 11/13/19 23:59 23:59 23:59 23:59 Intake Total 5450 / 5450 4701 / 4701 3674 / 3674 425 / 425 Output Total 4650 / 4650 450 / 450 Balance 5450 / 5450 4701 / 4701 -976 / -976 -25 / -25 Physical Exam Oriented: Normal Eyes: Normal Ear: Normal Nose: Normal Throat: Normal Respiratory: Generalized, Diminished and Wheezes Cardiovascular: Normal : Normal Auscultation: Bowel Sounds: Normal Tenderness: Normal Skin: Normal Musculoskeletal: Normal Psychiatric: Normal Mood Description: Calm Affect: Normal Speech Pattern: Clear and Appropriate Laboratory and Diagnostics Result Diagrams: 11/13/19 04:35 11/13/19 04:35 Labs: 11/06/19 12:59 Blood Blood Culture - Final 11/06/19 12:53 Blood Blood Culture - Final Laboratory WBC 5.7 X10^3/uL (3.6-10.0) 11/13/19 04:35 RBC 3.89 X10^6/uL (3.5-5.4) 11/13/19 04:35 Hgb 11.5 g/dL (12.0-16.0) L 11/13/19 04:35 Hct 33.6 % (36.0-47.0) L 11/13/19 04:35 MCV 86.2 fL (80.0-100.0) 11/13/19 04:35 MCH 29.5 pg (27.0-34.0) 11/13/19 04:35 MCHC 34.2 g/dL (33.0-35.0) 11/13/19 04:35 RDW 13.7 % (11.6-16.5) 11/13/19 04:35 Plt Count 345 X10^3/uL (150.0-450.0) 11/13/19 04:35 Plt Count Comment Adequate (ADEQUATE) 11/11/19 05:02 MPV 7.1 fL (7.4-11.0) L 11/13/19 04:35 Neut % (Auto) 79.5 % (42.0-75.0) H 11/13/19 04:35 Lymph % (Auto) 13.7 % (21.0-51.0) L 11/13/19 04:35 [place] % (Auto) 5.6 % (0.0-13.0) 11/13/19 04:35 Eos % (Auto) 1.0 % (0.9-2.9) 11/13/19 04:35 Baso % (Auto) 0.2 % (0.2-1.0) 11/13/19 04:35 Neut # (Auto) 4.5 x10^3/uL (2.2-4.8) 11/13/19 04:35 Lymph # (Auto) 0.8 X10^3/uL (1.3-2.9) L 11/13/19 04:35 [place] # (Auto) 0.3 x10^3/uL (0.3-0.8) 11/13/19 04:35 Eos # (Auto) 0.1 x10^3/uL (0.0-0.2) 11/13/19 04:35 Baso # (Auto) 0.0 X10^3/uL (0.0-0.1) 11/13/19 04:35 Absolute Nucleated RBC 0.1 /100WBC 11/13/19 04:35 Total Counted 100 11/11/19 05:02 Neutrophils % (Manual) 90 % (39-76) H 11/11/19 05:02 Lymphocytes % (Manual) 6 % (13-43) L 11/11/19 05:02 Monocytes % (Manual) 4 % (4-9) 11/11/19 05:02 Plt Morphology Comment Normal (NORMAL) 11/11/19 05:02 RBC Morphology Normal (NORMAL) 11/11/19 05:02 Sample Site Rr 11/13/19 06:00 ABG pH 7.400 (7.35-7.45) 11/13/19 06:00 ABG pCO2 35.0 mmHg (35.0-45.0) 11/13/19 06:00 ABG pO2 74.0 mmHg (80.0-100.0) L 11/13/19 06:00 ABG HCO3 21.7 mmol/L (22-26) L 11/13/19 06:00 ABG O2 Saturation 95.0 % (90-100) 11/13/19 06:00 ABG Base Excess -2.6 mmol/L (-2.0-2.0) L 11/13/19 06:00 Dieter Test Pos 11/13/19 06:00 A-a Gradient 189.0 mmHg 11/13/19 06:00 FiO2 43.0 11/13/19 06:00 Blood Gas Comments Serafin well 11/13/19 06:00 Sodium 140 mmol/L (136-145) 11/13/19 04:35 Corrected Sodium 141 mmol/L (136-145) 11/13/19 04:35 Potassium 3.2 mmol/L (3.5-5.1) L 11/13/19 04:35 Chloride 105 mmol/L (98-107) 11/13/19 04:35 Carbon Dioxide 23.4 mmol/L (21-32) 11/13/19 04:35 BUN 10 mg/dL (7-18) 11/13/19 04:35 Creatinine 0.65 mg/dL (0.55-1.02) 11/13/19 04:35 Est GFR (MDRD) Af Amer > 60 (>60) 11/13/19 04:35 Est GFR (MDRD) Non-Af > 60 (>60) 11/13/19 04:35 Glucose 129 mg/dL (65-99) H 11/13/19 04:35 Lactic Acid 0.9 mmol/L (0.4-2.0) 11/10/19 10:10 Calcium 8.1 mg/dL (8.5-10.1) L 11/13/19 04:35 Corrected Calcium 9.7 mg/dL (8.5-10.1) 11/13/19 04:35 Magnesium 1.4 mg/dL (1.7-2.9) L 11/13/19 04:35 Ferritin 187 ng/mL (8-252) 11/11/19 05:02 Total Bilirubin 0.40 mg/dL (0.2-1.0) 11/13/19 04:35 AST 19 Units/L (15-37) 11/13/19 04:35 ALT 30 Units/L (12-78) 11/13/19 04:35 Alkaline Phosphatase 175 Units/L (46-116) H 11/13/19 04:35 Lactate Dehydrogenase 283 Units/L (81-234) H 11/06/19 12:53 C-Reactive Protein 11.50 mg/L (0-3.0) H 11/11/19 05:02 Total Protein 5.6 g/dL (6.4-8.2) L 11/13/19 04:35 Albumin 2.0 g/dL (3.4-5.0) L 11/13/19 04:35 Globulin 3.6 g/dL (2.5-4.5) 11/13/19 04:35 Albumin/Globulin Ratio 0.6 Ratio (1.1-2.1) L 11/13/19 04:35 Amylase 69 Units/L (25-115) 11/06/19 12:53 Lipase 471 Units/L (73-393) H 11/06/19 12:53 Specimen Type Clean catch urine 11/06/19 18:00 Urine Color Yellow (YELLOW) 11/06/19 18:00 Urine Appearance Clear (CLEAR) 11/06/19 18:00 Urine pH 5.0 (5.0 - 8.0) 11/06/19 18:00 Ur Specific [place] 1.020 (1.000-1.030) 11/06/19 18:00 Urine Protein 2+ (NEGATIVE) 11/06/19 18:00 Urine Glucose (UA) 4+ (NEGATIVE) 11/06/19 18:00 Urine Ketones 2+ (NEGATIVE) 11/06/19 18:00 Urine Occult Blood Negative (NEGATIVE) 11/06/19 18:00 Urine Nitrite Negative (NEGATIVE) 11/06/19 18:00 Urine Bilirubin Negative (NEGATIVE) 11/06/19 18:00 Urine Urobilinogen Normal (NORMAL) 11/06/19 18:00 Ur Leukocyte Esterase Negative (NEGATIVE) 11/06/19 18:00 Urine RBC None seen /HPF (0-3) 11/06/19 18:00 Urine WBC 0-2 /HPF (0-5) 11/06/19 18:00 Ur Squamous Epith Cells Rare /HPF (NEGATIVE) 11/06/19 18:00 Amorphous Sediment Trace /HPF (NEGATIVE) 11/06/19 18:00 Urine Bacteria Negative /HPF (NEGATIVE) 11/06/19 18:00 Hyaline Casts Rare /LPF (NEGATIVE) 11/06/19 18:00 Urine Mucus Moderate /HPF (NEGATIVE) 11/06/19 18:00 Ur Culture Indicated? No/not indicated 11/06/19 18:00 Acetone, Semi-Quant Negative (NEGATIVE) 11/06/19 12:53 Influenza Type A Ag Negative-presumptive (NEGATIVE) 11/06/19 15:30 Influenza Type B Ag Negative-presumptive (NEGATIVE) 11/06/19 15:30 SARS-CoV-2 (PCR) Positive (NEGATIVE) A 11/06/19 15:30 S. pyogenes (TEM-PCR) Not detected (NOT DETECT) 11/06/19 15:30 Plan (1) COVID-19: Status: Acute Plan: NS AT 25ML/HR, LEVAQUIN 750MG IV DAILY, ROBITUSSIN DM 10M PO QID, TUSSIONEX 5ML PO Q12H, AND DUONEBS Q6H, REMDESIVIR 100MG IV DAILY, SOLU-MEDROL 80MG IV Q8H, PLAQUENIL 200MG PO BID, HUMULIN R SLIDING SCALE, (2) Pneumonia: Status: Acute Qualifiers: Laterality: bilateral Lung location: lower lobe of lung Pneumonia type: due to unspecified organism Qualified Code(s): J18.9 - Pneumonia, unspecified organism (3) Hyponatremia: Status: Acute (4) Hypotension: Status: Acute Qualifiers: Hypotension type: unspecified hypotension type Qualified Code(s): I95.9 - Hypotension, unspecified (5) Diabetes: Status: Chronic Qualifiers: Diabetes mellitus complication status: with hyperglycemia Diabetes mellitus fci insulin use: unspecified fci insulin use status Diabetes mellitus type: type 2 Qualified Code(s): E11.65 - Type 2 diabetes mellitus with hyperglycemia Plan: CONTINUE HOME MEDS, CONTINUE TO MONITOR (6) Depression: Status: Chronic Qualifiers: Depression Type: unspecified Qualified Code(s): F32.9 - Major depressive disorder, single episode, unspecified Plan: CONTINUE HOME MEDS, CONTINUE TO MONITOR
[2019-11-13] MEDS: MAGNESIUM SULFATE 1 GRAM/100 mL PREMIX 1 GM/100 ML BAG IV PRN ×4 (11:25→17:15)
[2019-11-13] MEDS ORDERED: TYLENOL 325 MG TAB PO ONE (13:09)
[2019-11-13] MEDS: TYLENOL 325 MG TAB PO PRN (13:10)
--- NOTE | 2019-11-13 14:36 | RAD ---
HISTORYDyspnea, COVID-19STUDYCHEST, 1 VIEWCOMPARISONPrevious dayFINDINGSThe trachea is midline. The cardiac silhouette is unremarkable. There are patchy bilateral airspace opacities which appear overall stable as compared to the prior. There is no large effusion or pneumothorax. The bony thorax is unremarkable.IMPRESSIONOverall, stable chest with multifocal pneumonia.Electronically signed by: FLAKITO RODRIGUEZ (Nov 13, 2019 14:35:49)
[2019-11-13] MEDS: ZOFRAN TAB 4 MG SL PRN (17:15)
[2019-11-13] MEDS: SNACK - Diabetic Appropriate PO SCH (20:09)
--- NOTE | 2019-11-13 20:55 | PCM.PROG ---
Progress Note - Progress Note for Day of Date of Exam: 11/11/19 - Subjective Subjective: IS BEING TREATED FOR COVID-19, PNEUMONIA, AND HYPONATREMIA. TODAY, SHE IS ALERT AND ORIENTED, LYING IN BED ON MORNING ROUNDS. SHE CONTINUES WITH COMPLAINTS OF CONGESTION, WEAKNESS, AND HEADACHE TODAY. SYMPTOMS HAVE SLIGHTLY IMPROVED SINCE YESTERDAY. ON EXAMINATION, HEART IS REGULAR IN RATE AND RHYTHM. BILATERAL LUNGS ARE NOTED WITH SCATTERED WHEEZING THROUGHOUT. ABDOMEN IS ROUND, SOFT, AND NON-TENDER WITH NORMAL BOWEL SOUNDS NOTED IN ALL QUADRANTS. HER VITALS THIS MORNING ARE 97.7-95-35-94%HHF-120/58. LABS WERE OBTAINED. ABNORMAL LAB VALUES INCLUDE THE FOLLOWING: HGB 11.6, HCT 34.3, CHLORIDE 111, CARBON DIOXIDE 15.8, GLUCOSE 181, CALCIUM 8.3, ALK PHOS 230, CRP 11.50, TOTAL PROTEIN 5.8, ALBUMIN 2.2. BLOOD CULTURES ARE PENDING. ABG WAS OBTAINED AND REVEALED: PH 7.260, PC02 21.0, P02 75.0, HC03 9.4, BASE EXCESS -15.7, Fi02 42.0. A CHEST XRAY WAS OBTAINED AND REVEALED: No change bilateral infiltrates consistent with COVID-19 lung involvement. SHE IS CURRENTLY RECEIVING NS AT 25ML/HR, LEVAQUIN 750MG IV DAILY, REMDESIVIR 100MG IV DAILY, SOLU-MEDROL 80MG IV Q8H, PLAQUENIL 20 0MG PO BID, HUMULIN R SLIDING SCALE TORADOL 30MG IV Q8H, ROBITUSSIN DM 10M PO QID, TUSSIONEX 5ML PO Q12H, AND DUONEBS Q6H. OTHERWISE, WE WILL FOLLOW UP WITH AM LABS AND CHEST XRAY AND CONTINUE TO MONITOR. - Past Medical Family Social History Past Med/Fam/Surg Hx: No changes since H&P Allergies: Allergies No Known Drug Allergies Allergy (Verified 11/06/19 13:06) - Review of Systems ROS: No change since H&P - Vital Signs and I&O's Vital Signs: Temperature 98.1 F Pulse Rate [Apical] 121 Pulse Rate 116 Respiratory Rate 32 Blood Pressure [Left Arm] 109/63 Blood Pressure 110/59 O2 Sat by Pulse Oximetry 91 Intake and Output: Intake & Output 11/11/19 11/12/19 11/13/19 11/14/19 11:59 11:59 11:59 11:59 Intake Total 5580 / 5580 4201 / 4201 3599 / 3599 111 1116 Output Total 5100 / 5100 Balance 5580 / 5580 4201 / 4201 -1501 / -1501 1115 111 - Physical Exam Oriented: Normal Eyes: Normal Ear: Normal Nose: Normal Throat: Normal Respiratory: Generalized, Diminished, Wheezes Cardiovascular: Normal : Normal Auscultation: Bowel Sounds: Normal Palpation: Normal Tenderness: Normal Skin: Normal Musculoskeletal: Normal Psychiatric: Normal Mood Description: Calm Affect: Normal Speech Pattern: Clear, Appropriate - Laboratory and Diagnostics Result Diagrams: 11/13/19 04:35 11/13/19 19:21 Labs: 11/06/19 12:59 Blood Blood Culture - Final 11/06/19 12:53 Blood Blood Culture - Final Laboratory WBC 5.7 X10^3/uL (3.6-10.0) 11/13/19 04:35 RBC 3.89 X10^6/uL (3.5-5.4) 11/13/19 04:35 Hgb 11.5 g/dL (12.0-16.0) L 11/13/19 04:35 Hct 33.6 % (36.0-47.0) L 11/13/19 04:35 MCV 86.2 fL (80.0-100.0) 11/13/19 04:35 MCH 29.5 pg (27.0-34.0) 11/13/19 04:35 MCHC 34.2 g/dL (33.0-35.0) 11/13/19 04:35 RDW 13.7 % (11.6-16.5) 11/13/19 04:35 Plt Count 345 X10^3/uL (150.0-450.0) 11/13/19 04:35 Plt Count Comment Adequate (ADEQUATE) 11/11/19 05:02 MPV 7.1 fL (7.4-11.0) L 11/13/19 04:35 Neut % (Auto) 79.5 % (42.0-75.0) H 11/13/19 04:35 Lymph % (Auto) 13.7 % (21.0-51.0) L 11/13/19 04:35 [place] % (Auto) 5.6 % (0.0-13.0) 11/13/19 04:35 Eos % (Auto) 1.0 % (0.9-2.9) 11/13/19 04:35 Baso % (Auto) 0.2 % (0.2-1.0) 11/13/19 04:35 Neut # (Auto) 4.5 x10^3/uL (2.2-4.8) 11/13/19 04:35 Lymph # (Auto) 0.8 X10^3/uL (1.3-2.9) L 11/13/19 04:35 [place] # (Auto) 0.3 x10^3/uL (0.3-0.8) 11/13/19 04:35 Eos # (Auto) 0.1 x10^3/uL (0.0-0.2) 11/13/19 04:35 Baso # (Auto) 0.0 X10^3/uL (0.0-0.1) 11/13/19 04:35 Absolute Nucleated RBC 0.1 /100WBC 11/13/19 04:35 Total Counted 100 11/11/19 05:02 Neutrophils % (Manual) 90 % (39-76) H 11/11/19 05:02 Lymphocytes % (Manual) 6 % (13-43) L 11/11/19 05:02 Monocytes % (Manual) 4 % (4-9) 11/11/19 05:02 Plt Morphology Comment Normal (NORMAL) 11/11/19 05:02 RBC Morphology Normal (NORMAL) 11/11/19 05:02 Sample Site Rr 11/13/19 06:00 ABG pH 7.400 (7.35-7.45) 11/13/19 06:00 ABG pCO2 35.0 mmHg (35.0-45.0) 11/13/19 06:00 ABG pO2 74.0 mmHg (80.0-100.0) L 11/13/19 06:00 ABG HCO3 21.7 mmol/L (22-26) L 11/13/19 06:00 ABG O2 Saturation 95.0 % (90-100) 11/13/19 06:00 ABG Base Excess -2.6 mmol/L (-2.0-2.0) L 11/13/19 06:00 Dieter Test Pos 11/13/19 06:00 A-a Gradient 189.0 mmHg 11/13/19 06:00 FiO2 43.0 11/13/19 06:00 Blood Gas Comments Serafin well sw 11/13/19 06:00 Sodium 140 mmol/L (136-145) 11/13/19 04:35 Corrected Sodium 141 mmol/L (136-145) 11/13/19 04:35 Potassium 3.0 mmol/L (3.5-5.1) L* 11/13/19 19:21 Chloride 105 mmol/L (98-107) 11/13/19 04:35 Carbon Dioxide 23.4 mmol/L (21-32) 11/13/19 04:35 BUN 10 mg/dL (7-18) 11/13/19 04:35 Creatinine 0.65 mg/dL (0.55-1.02) 11/13/19 04:35 Est GFR (MDRD) Af Amer > 60 (>60) 11/13/19 04:35 Est GFR (MDRD) Non-Af > 60 (>60) 11/13/19 04:35 Glucose 129 mg/dL (65-99) H 11/13/19 04:35 Lactic Acid 0.9 mmol/L (0.4-2.0) 11/10/19 10:10 Calcium 8.1 mg/dL (8.5-10.1) L 11/13/19 04:35 Corrected Calcium 9.7 mg/dL (8.5-10.1) 11/13/19 04:35 Magnesium 1.4 mg/dL (1.7-2.9) L 11/13/19 04:35 Ferritin 187 ng/mL (8-252) 11/11/19 05:02 Total Bilirubin 0.40 mg/dL (0.2-1.0) 11/13/19 04:35 AST 19 Units/L (15-37) 11/13/19 04:35 ALT 30 Units/L (12-78) 11/13/19 04:35 Alkaline Phosphatase 175 Units/L (46-116) H 11/13/19 04:35 Lactate Dehydrogenase 283 Units/L (81-234) H 11/06/19 12:53 C-Reactive Protein 11.50 mg/L (0-3.0) H 11/11/19 05:02 Total Protein 5.6 g/dL (6.4-8.2) L 11/13/19 04:35 Albumin 2.0 g/dL (3.4-5.0) L 11/13/19 04:35 Globulin 3.6 g/dL (2.5-4.5) 11/13/19 04:35 Albumin/Globulin Ratio 0.6 Ratio (1.1-2.1) L 11/13/19 04:35 Amylase 69 Units/L (25-115) 11/06/19 12:53 Lipase 471 Units/L (73-393) H 11/06/19 12:53 Specimen Type Clean catch urine 11/06/19 18:00 Urine Color Yellow (YELLOW) 11/06/19 18:00 Urine Appearance Clear (CLEAR) 11/06/19 18:00 Urine pH 5.0 (5.0 - 8.0) 11/06/19 18:00 Ur Specific [place] 1.020 (1.000-1.030) 11/06/19 18:00 Urine Protein 2+ (NEGATIVE) 11/06/19 18:00 Urine Glucose (UA) 4+ (NEGATIVE) 11/06/19 18:00 Urine Ketones 2+ (NEGATIVE) 11/06/19 18:00 Urine Occult Blood Negative (NEGATIVE) 11/06/19 18:00 Urine Nitrite Negative (NEGATIVE) 11/06/19 18:00 Urine Bilirubin Negative (NEGATIVE) 11/06/19 18:00 Urine Urobilinogen Normal (NORMAL) 11/06/19 18:00 Ur Leukocyte Esterase Negative (NEGATIVE) 11/06/19 18:00 Urine RBC None seen /HPF (0-3) 11/06/19 18:00 Urine WBC 0-2 /HPF (0-5) 11/06/19 18:00 Ur Squamous Epith Cells Rare /HPF (NEGATIVE) 11/06/19 18:00 Amorphous Sediment Trace /HPF (NEGATIVE) 11/06/19 18:00 Urine Bacteria Negative /HPF (NEGATIVE) 11/06/19 18:00 Hyaline Casts Rare /LPF (NEGATIVE) 11/06/19 18:00 Urine Mucus Moderate /HPF (NEGATIVE) 11/06/19 18:00 Ur Culture Indicated? No/not indicated 11/06/19 18:00 Acetone, Semi-Quant Negative (NEGATIVE) 11/06/19 12:53 Influenza Type A Ag Negative-presumptive (NEGATIVE) 11/06/19 15:30 Influenza Type B Ag Negative-presumptive (NEGATIVE) 11/06/19 15:30 SARS-CoV-2 (PCR) Positive (NEGATIVE) A 11/06/19 15:30 S. pyogenes (TEM-PCR) Not detected (NOT DETECT) 11/06/19 15:30 - Plan (1) COVID-19 Status: Acute Plan: NS AT 25ML/HR, LEVAQUIN 750MG IV DAILY, ROBITUSSIN DM 10M PO QID, TUSSIONEX 5ML PO Q12H, AND DUONEBS Q6H, REMDESIVIR 100MG IV DAILY, SOLU-MEDROL 80MG IV Q8H, PLAQUENIL 200MG PO BID, HUMULIN R SLIDING SCALE, (2) Pneumonia Status: Acute Qualifiers: Pneumonia type: due to unspecified organism Laterality: bilateral Lung location: lower lobe of lung Qualified Code(s): J18.9 - Pneumonia, unspecified organism (3) Hyponatremia Status: Acute (4) Hypotension Status: Acute Qualifiers: Hypotension type: unspecified hypotension type Qualified Code(s): I95.9 - Hypotension, unspecified (5) Diabetes Status: Chronic Qualifiers: Diabetes mellitus type: type 2 Diabetes mellitus snf insulin use: unspecified terminal carman insulin use status Diabetes mellitus complication status: with hyperglycemia Qualified Code(s): E11.65 - Type 2 diabetes mellitus with hyperglycemia Plan: CONTINUE HOME MEDS, CONTINUE TO MONITOR (6) Depression Status: Chronic Qualifiers: Depression Type: unspecified Qualified Code(s): F32.9 - Major depressive disorder, single episode, unspecified Plan: CONTINUE HOME MEDS, CONTINUE TO MONITOR
[2019-11-13] MEDS: LOVASTATIN 20 MG PO SCH (22:02)
[2019-11-13] MEDS: SYNTHROID 50 mcg TAB PO SCH (22:02)
[2019-11-13] MEDS: TUSSIONEX PENNKINETIC SUSP PO PRN (22:05)
[2019-11-13] MEDS: NORCO 5/325 MG TAB PO PRN (22:49)
[2019-11-14 04:53] LABS: BASOPHILS % (AUTO) 0.3 % (0.2-1.0); EOSINOPHILS # (AUTO) 0.1 x10^3/uL (0.0-0.2); EOSINOPHILS % (AUTO) 3.1 % (0.9-2.9); HEMATOCRIT 33.5 % (36.0-47.0); HEMOGLOBIN 11.4 g/dL (12.0-16.0); LYMPHOCYTES # (AUTO) 0.9 X10^3/uL (1.3-2.9); LYMPHOCYTES % (AUTO) 19.2 % (21.0-51.0); MEAN CORPUSCULAR HEMOGLOBIN 29.2 pg (27.0-34.0); MEAN CORPUSCULAR HGB CONC 34.1 g/dL (33.0-35.0); MEAN CORPUSCULAR VOLUME 85.7 fL (80.0-100.0); MEAN PLATELET VOLUME 6.9 fL (7.4-11.0); MONOCYTES # (AUTO) 0.3 x10^3/uL (0.3-0.8); MONOCYTES % (AUTO) 6.4 % (0.0-13.0); NEUTROPHILS # (AUTO) 3.4 x10^3/uL (2.2-4.8); PLATELET COUNT 365 X10^3/uL (150.0-450.0); RED BLOOD COUNT 3.91 X10^6/uL (3.5-5.4); RED CELL DISTRIBUTION WIDTH 13.9 % (11.6-16.5); WHITE BLOOD COUNT 4.8 X10^3/uL (3.6-10.0)
[2019-11-14] MEDS: NS 1000 ML 1,000 ML IV SCH ×3 (05:02→20:26)
[2019-11-14] MEDS: NORCO 5/325 MG TAB PO PRN (05:03)
[2019-11-14 05:08] LABS: ALANINE AMINOTRANSFERASE 28 Units/L (12-78); ALBUMIN 1.8 g/dL (3.4-5.0); ALKALINE PHOSPHATASE 149 Units/L (46-116); ASPARTATE AMINO TRANSFERASE 20 Units/L (15-37); BLOOD UREA NITROGEN 5 mg/dL (7-18); CALCIUM 7.9 mg/dL (8.5-10.1); CHLORIDE 106 mmol/L (98-107); COR CA(FOR HYPOALB) 9.7 mg/dL (8.5-10.1); COR NA(FOR HYPERGLY) 139 mmol/L (136-145); CREATININE 0.48 mg/dL (0.55-1.02); MAGNESIUM 1.7 mg/dL (1.7-2.9); SODIUM 139 mmol/L (136-145); TOTAL PROTEIN 5.4 g/dL (6.4-8.2); eGFR NON BLACK RACES > 60 (>60)
[2019-11-14] MEDS: XOPENEX 1.25 MG/3 ML NEBULE NEB PRN ×3 (06:15→17:25)
--- NOTE | 2019-11-14 06:40 | RAD ---
HISTORYShortness of breathSTUDYChest AP [id number] heart is within normal limits in size. The tammie are obscured. Patchy and confluent alveolar infiltrates are present involving the right upper lobe, right lower lobe peripherally, and peripherally in the left upper lobe. The infiltrates are somewhat more prominent and confluent than on the prior examination. No pleural effusions are identified.IMPRESSIONIncreasing infiltrates bilaterally as described above most consistent with multifocal pneumoniaElectronically signed by: CAREN GARCIA (Nov 14, 2019 06:39:20)
[2019-11-14] MEDS ORDERED: GLUCOPHAGE ONE ×2 (08:40→20:16)
[2019-11-14] MEDS: VSL#3 PO SCH (09:07)
[2019-11-14] MEDS: LOPRESSOR TAB 25 MG PO SCH ×2 (09:08→20:31)
[2019-11-14] MEDS: PLAQUENIL PO SCH (09:08)
[2019-11-14] MEDS: VORTIOXETINE 5 MG PO SCH (09:08)
[2019-11-14] MEDS: ROBITUSSIN DM PO SCH ×4 (09:08→20:27)
[2019-11-14] MEDS: PATIENT'S HOME MEDICATION (Empagliflozin [Jardiance] 25 MG) PO SCH (09:08)
[2019-11-14] MEDS: GLUCOPHAGE PO SCH ×2 (09:08→20:37)
[2019-11-14] MEDS: LOVENOX INJ 40 MG SYR SC SCH (09:08)
[2019-11-14] MEDS: NexIUM PO SCH (09:08)
[2019-11-14] MEDS: LEVAQUIN PREMIX IV 750 MG 750 MG/150 ML BAG IV SCH (09:08)
[2019-11-14] MEDS: HEMOCYTE-PLUS PO SCH (09:09)
--- NOTE | 2019-11-14 10:12 | PCM.PROG ---
Progress Note - Progress Note for Day of Date of Exam: 11/14/19 - Subjective Subjective: IS BEING TREATED FOR COVID-19, PNEUMONIA, AND HYPONATREMIA. TODAY, SHE IS ALERT AND ORIENTED, LYING IN BED ON MORNING ROUNDS. SHE CONTINUES WITH COMPLAINTS OF CONGESTION, WEAKNESS, AND HEADACHE TODAY. SYMPTOMS HAD REPORTEDLY SLIGHTLY IMPROVED OVER THE WEEKEND, HOWEVER, SHE REPORTS THAT SHE IS SLIGHTLY MORE SHORT OF BREATH TODAY. ON EXAMINATION, HEART IS REGULAR IN RATE AND RHYTHM. BILATERAL LUNGS ARE NOTED WITH SCATTERED WHEEZING THROUGHOUT. ABDOMEN IS ROUND, SOFT, AND NON-TENDER WITH NORMAL BOWEL SOUNDS NOTED IN ALL QUADRANTS. HER VITALS THIS MORNING ARE 97.7-82-31-93%HHF-132/72. LABS WERE OBTAINED. ABNORMAL LAB VALUES INCLUDE THE FOLLOWING: HGB 11.4, HCT 33.5, BUN 5, CREATININE 0.48, GLUCOSE 119, CALCIUM 7.9, ALK PHOS 149, CRP 33.70, TOTAL PROTEIN 5.4, ALBUMIN 1.8. BLOOD CULTURES ARE PENDING. YESTERDAYS ABG REVEALED: PH 7.400, PC02 35.0, P02 74.0, HC03 21.7, 02 SATURATION 95.0, BASE EXCESS -2.6, FI02 43.0. A CHEST XRAY WAS OBTAINED AND REVEALED: Increasing infiltrates bilaterally as described above most consistent with multifocal pneumonia. SHE IS CURRENTLY RECEIVING NS AT 25ML/HR, LEVAQUIN 750MG IV DAILY, REMDESIVIR 100MG IV DAILY, PLAQUENIL 200MG PO BID, HUMULIN R SLIDING SCALE TORADOL 30MG IV Q8H, ROBITUSSIN DM 10M PO QID, TUSSIONEX 5ML PO Q12H, AND DUONEBS Q6H. SOLU-MEDROL WAS DISCONTINUED OVER THE WEEKEND, BUT WE WILL RESUME THEM TODAY. OTHERWISE, WE WILL FOLLOW UP WITH AM LABS AND CHEST XRAY AND CONTINUE TO MONITOR. - Past Medical Family Social History Past Med/Fam/Surg Hx: No changes since H&P Allergies: Allergies No Known Drug Allergies Allergy (Verified 11/06/19 13:06) - Review of Systems ROS: No change since H&P - Vital Signs and I&O's Vital Signs: Temperature 97.7 F Pulse Rate [Apical] 121 Pulse Rate 90 Respiratory Rate 26 Blood Pressure [Left Arm] 109/63 Blood Pressure 110/70 O2 Sat by Pulse Oximetry 92 Intake and Output: Intake & Output 11/11/19 11/12/19 11/13/19 11/14/19 11:59 11:59 11:59 11:59 Intake Total 5580 / 5580 4201 / 4201 3599 / 3599 191 / 191 Output Total 5100 / 5100 1800 / 1800 Balance 5580 / 5580 4201 / 4201 -1501 / -1501 116 / 116 - Physical Exam Oriented: Normal Eyes: Normal Ear: Normal Nose: Normal Throat: Normal Respiratory: Generalized, Diminished, Wheezes Cardiovascular: Normal : Normal Auscultation: Bowel Sounds: Normal Palpation: Normal Tenderness: Normal Skin: Normal Musculoskeletal: Normal Psychiatric: Normal Mood Description: Calm Affect: Normal Speech Pattern: Clear, Appropriate - Laboratory and Diagnostics Result Diagrams: 11/14/19 04:30 11/14/19 04:30 Labs: 11/06/19 12:59 Blood Blood Culture - Final 11/06/19 12:53 Blood Blood Culture - Final Laboratory WBC 4.8 X10^3/uL (3.6-10.0) 11/14/19 04:30 RBC 3.91 X10^6/uL (3.5-5.4) 11/14/19 04:30 Hgb 11.4 g/dL (12.0-16.0) L 11/14/19 04:30 Hct 33.5 % (36.0-47.0) L 11/14/19 04:30 MCV 85.7 fL (80.0-100.0) 11/14/19 04:30 MCH 29.2 pg (27.0-34.0) 11/14/19 04:30 MCHC 34.1 g/dL (33.0-35.0) 11/14/19 04:30 RDW 13.9 % (11.6-16.5) 11/14/19 04:30 Plt Count 365 X10^3/uL (150.0-450.0) 11/14/19 04:30 Plt Count Comment Adequate (ADEQUATE) 11/11/19 05:02 MPV 6.9 fL (7.4-11.0) L 11/14/19 04:30 Neut % (Auto) 71.0 % (42.0-75.0) 11/14/19 04:30 Lymph % (Auto) 19.2 % (21.0-51.0) L 11/14/19 04:30 [place] % (Auto) 6.4 % (0.0-13.0) 11/14/19 04:30 Eos % (Auto) 3.1 % (0.9-2.9) H 11/14/19 04:30 Baso % (Auto) 0.3 % (0.2-1.0) 11/14/19 04:30 Neut # (Auto) 3.4 x10^3/uL (2.2-4.8) 11/14/19 04:30 Lymph # (Auto) 0.9 X10^3/uL (1.3-2.9) L 11/14/19 04:30 [place] # (Auto) 0.3 x10^3/uL (0.3-0.8) 11/14/19 04:30 Eos # (Auto) 0.1 x10^3/uL (0.0-0.2) 11/14/19 04:30 Baso # (Auto) 0.0 X10^3/uL (0.0-0.1) 11/14/19 04:30 Absolute Nucleated RBC 0.1 /100WBC 11/14/19 04:30 Total Counted 100 11/11/19 05:02 Neutrophils % (Manual) 90 % (39-76) H 11/11/19 05:02 Lymphocytes % (Manual) 6 % (13-43) L 11/11/19 05:02 Monocytes % (Manual) 4 % (4-9) 11/11/19 05:02 Plt Morphology Comment Normal (NORMAL) 11/11/19 05:02 RBC Morphology Normal (NORMAL) 11/11/19 05:02 Sample Site Rr 11/13/19 06:00 ABG pH 7.400 (7.35-7.45) 11/13/19 06:00 ABG pCO2 35.0 mmHg (35.0-45.0) 11/13/19 06:00 ABG pO2 74.0 mmHg (80.0-100.0) L 11/13/19 06:00 ABG HCO3 21.7 mmol/L (22-26) L 11/13/19 06:00 ABG O2 Saturation 95.0 % (90-100) 11/13/19 06:00 ABG Base Excess -2.6 mmol/L (-2.0-2.0) L 11/13/19 06:00 Dieter Test Pos 11/13/19 06:00 A-a Gradient 189.0 mmHg 11/13/19 06:00 FiO2 43.0 11/13/19 06:00 Blood Gas Comments Serafin well sw 11/13/19 06:00 Sodium 139 mmol/L (136-145) 11/14/19 04:30 Corrected Sodium 139 mmol/L (136-145) 11/14/19 04:30 Potassium 4.2 mmol/L (3.5-5.1) 11/14/19 04:30 Chloride 106 mmol/L (98-107) 11/14/19 04:30 Carbon Dioxide 25.0 mmol/L (21-32) 11/14/19 04:30 BUN 5 mg/dL (7-18) L 11/14/19 04:30 Creatinine 0.48 mg/dL (0.55-1.02) L 11/14/19 04:30 Est GFR (MDRD) Af Amer > 60 (>60) 11/14/19 04:30 Est GFR (MDRD) Non-Af > 60 (>60) 11/14/19 04:30 Glucose 119 mg/dL (65-99) H 11/14/19 04:30 Lactic Acid 0.9 mmol/L (0.4-2.0) 11/10/19 10:10 Calcium 7.9 mg/dL (8.5-10.1) L 11/14/19 04:30 Corrected Calcium 9.7 mg/dL (8.5-10.1) 11/14/19 04:30 Magnesium 1.7 mg/dL (1.7-2.9) 11/14/19 04:30 Ferritin 187 ng/mL (8-252) 11/11/19 05:02 Total Bilirubin 0.30 mg/dL (0.2-1.0) 11/14/19 04:30 AST 20 Units/L (15-37) 11/14/19 04:30 ALT 28 Units/L (12-78) 11/14/19 04:30 Alkaline Phosphatase 149 Units/L (46-116) H 11/14/19 04:30 Lactate Dehydrogenase 283 Units/L (81-234) H 11/06/19 12:53 C-Reactive Protein 33.70 mg/L (0-3.0) H 11/14/19 04:30 Total Protein 5.4 g/dL (6.4-8.2) L 11/14/19 04:30 Albumin 1.8 g/dL (3.4-5.0) L 11/14/19 04:30 Globulin 3.6 g/dL (2.5-4.5) 11/14/19 04:30 Albumin/Globulin Ratio 0.5 Ratio (1.1-2.1) L 11/14/19 04:30 Amylase 69 Units/L (25-115) 11/06/19 12:53 Lipase 471 Units/L (73-393) H 11/06/19 12:53 Specimen Type Clean catch urine 11/06/19 18:00 Urine Color Yellow (YELLOW) 11/06/19 18:00 Urine Appearance Clear (CLEAR) 11/06/19 18:00 Urine pH 5.0 (5.0 - 8.0) 11/06/19 18:00 Ur Specific [place] 1.020 (1.000-1.030) 11/06/19 18:00 Urine Protein 2+ (NEGATIVE) 11/06/19 18:00 Urine Glucose (UA) 4+ (NEGATIVE) 11/06/19 18:00 Urine Ketones 2+ (NEGATIVE) 11/06/19 18:00 Urine Occult Blood Negative (NEGATIVE) 11/06/19 18:00 Urine Nitrite Negative (NEGATIVE) 11/06/19 18:00 Urine Bilirubin Negative (NEGATIVE) 11/06/19 18:00 Urine Urobilinogen Normal (NORMAL) 11/06/19 18:00 Ur Leukocyte Esterase Negative (NEGATIVE) 11/06/19 18:00 Urine RBC None seen /HPF (0-3) 11/06/19 18:00 Urine WBC 0-2 /HPF (0-5) 11/06/19 18:00 Ur Squamous Epith Cells Rare /HPF (NEGATIVE) 11/06/19 18:00 Amorphous Sediment Trace /HPF (NEGATIVE) 11/06/19 18:00 Urine Bacteria Negative /HPF (NEGATIVE) 11/06/19 18:00 Hyaline Casts Rare /LPF (NEGATIVE) 11/06/19 18:00 Urine Mucus Moderate /HPF (NEGATIVE) 11/06/19 18:00 Ur Culture Indicated? No/not indicated 11/06/19 18:00 Acetone, Semi-Quant Negative (NEGATIVE) 11/06/19 12:53 Influenza Type A Ag Negative-presumptive (NEGATIVE) 11/06/19 15:30 Influenza Type B Ag Negative-presumptive (NEGATIVE) 11/06/19 15:30 SARS-CoV-2 (PCR) Positive (NEGATIVE) A 11/06/19 15:30 S. pyogenes (TEM-PCR) Not detected (NOT DETECT) 11/06/19 15:30 - Plan (1) COVID-19 Status: Acute Plan: NS AT 25ML/HR, LEVAQUIN 750MG IV DAILY, ROBITUSSIN DM 10M PO QID, TUSSIONEX 5ML PO Q12H, AND DUONEBS Q6H, REMDESIVIR 100MG IV DAILY, SOLU-MEDROL 80MG IV Q8H, PLAQUENIL 200MG PO BID, HUMULIN R SLIDING SCALE (2) Pneumonia Status: Acute Qualifiers: Pneumonia type: due to unspecified organism Laterality: bilateral Lung location: lower lobe of lung Qualified Code(s): J18.9 - Pneumonia, unspecified organism (3) Hyponatremia Status: Acute (4) Hypotension Status: Acute Qualifiers: Hypotension type: unspecified hypotension type Qualified Code(s): I95.9 - Hypotension, unspecified (5) Diabetes Status: Chronic Qualifiers: Diabetes mellitus type: type 2 Diabetes mellitus keno terminal operator insulin use: unspecified snf insulin use status Diabetes mellitus complication status: with hyperglycemia Qualified Code(s): E11.65 - Type 2 diabetes mellitus with hyperglycemia Plan: CONTINUE HOME MEDS, CONTINUE TO MONITOR (6) Depression Status: Chronic Qualifiers: Depression Type: unspecified Qualified Code(s): F32.9 - Major depressive disorder, single episode, unspecified Plan: CONTINUE HOME MEDS, CONTINUE TO MONITOR
[2019-11-14] MEDS ORDERED: ZOFRAN INJ 4 MG VIAL IVP PRN (11:27)
[2019-11-14] MEDS: SOLU-Medrol 40 MG VIAL IVP SCH ×3 (11:50→22:09)
[2019-11-14] MEDS: REMDESIVIR (INVESTIGATIONAL DRUG GS-5734) 100 MG in NS 250 ML IV 250 ML IV SCH (13:30)
[2019-11-14] MEDS: SYNTHROID 50 mcg TAB PO SCH (20:30)
[2019-11-14] MEDS: LOVASTATIN 20 MG PO SCH (20:37)
[2019-11-14] MEDS: HumuLIN R SUBCUT PRN (20:40)
[2019-11-14] MEDS: SNACK - Diabetic Appropriate PO SCH (22:09)
[2019-11-14] MEDS: TYLENOL 325 MG TAB PO PRN (23:30)
[2019-11-15] MEDS: XOPENEX 1.25 MG/3 ML NEBULE NEB PRN ×4 (00:20→17:20)
[2019-11-15] MEDS: NORCO 5/325 MG TAB PO PRN ×2 (00:30→23:40)
[2019-11-15] MEDS: NS 1000 ML 1,000 ML IV SCH ×3 (04:14→21:24)
[2019-11-15 04:40] LABS: BASOPHILS % (AUTO) 0.2 % (0.2-1.0); EOSINOPHILS % (AUTO) 0.2 % (0.9-2.9); HEMATOCRIT 37.2 % (36.0-47.0); HEMOGLOBIN 12.4 g/dL (12.0-16.0); LYMPHOCYTES # (AUTO) 0.4 X10^3/uL (1.3-2.9); MEAN CORPUSCULAR HGB CONC 33.2 g/dL (33.0-35.0); MEAN CORPUSCULAR VOLUME 87.2 fL (80.0-100.0); MEAN PLATELET VOLUME 7.2 fL (7.4-11.0); MONOCYTES # (AUTO) 0.2 x10^3/uL (0.3-0.8); NEUTROPHILS # (AUTO) 4.7 x10^3/uL (2.2-4.8); NEUTROPHILS % (AUTO) 88.6 % (42.0-75.0); PLATELET COUNT 445 X10^3/uL (150.0-450.0); RED BLOOD COUNT 4.26 X10^6/uL (3.5-5.4); RED CELL DISTRIBUTION WIDTH 13.9 % (11.6-16.5); WHITE BLOOD COUNT 5.3 X10^3/uL (3.6-10.0)
[2019-11-15 04:55] LABS: ALANINE AMINOTRANSFERASE 26 Units/L (12-78); ALBUMIN 2.2 g/dL (3.4-5.0); ALKALINE PHOSPHATASE 158 Units/L (46-116); ASPARTATE AMINO TRANSFERASE 15 Units/L (15-37); BLOOD UREA NITROGEN 12 mg/dL (7-18); CALCIUM 8.7 mg/dL (8.5-10.1); CARBON DIOXIDE 15.8 mmol/L (21-32); CHLORIDE 100 mmol/L (98-107); COR CA(FOR HYPOALB) 10.1 mg/dL (8.5-10.1); COR NA(FOR HYPERGLY) 137 mmol/L (136-145); CREATININE 0.65 mg/dL (0.55-1.02); SODIUM 133 mmol/L (136-145); TOTAL PROTEIN 6.5 g/dL (6.4-8.2); eGFR NON BLACK RACES > 60 (>60)
[2019-11-15 05:17] LABS: BAND NEUTROPHILS % 8 % (0-10); GIANT PLATELET FEW; PLATELET MORPHOLOGY COMMENT ABNORMAL (NORMAL)
[2019-11-15] MEDS: SOLU-Medrol 40 MG VIAL IVP SCH ×3 (05:59→21:25)
--- NOTE | 2019-11-15 06:20 | RAD ---
HISTORYShortness of breathSTUDYChest AP [id number] heart is within normal limits in size. The tammie are normal. Right upper and right lower lobe infiltrates are unchanged. There has been improvement in the left upper lobe infiltrate being followed. No pleural effusions are identified. Bony thorax is unremarkable.IMPRESSIONRight upper and right lower lobe infiltrates unchangedSignificant improvement left upper lobe infiltrateElectronically signed by: CAREN GARCIA (Nov 15, 2019 06:20:01)
[2019-11-15] MEDS: HEMOCYTE-PLUS PO SCH (09:11)
[2019-11-15] MEDS: ROBITUSSIN DM PO SCH ×4 (09:11→21:18)
[2019-11-15] MEDS: REMDESIVIR (INVESTIGATIONAL DRUG GS-5734) 100 MG in NS 250 ML IV 250 ML IV SCH (09:12)
[2019-11-15] MEDS: VSL#3 PO SCH (09:12)
[2019-11-15] MEDS: LOVENOX INJ 40 MG SYR SC SCH (09:12)
[2019-11-15] MEDS: LOPRESSOR TAB 25 MG PO SCH ×2 (09:13→21:20)
[2019-11-15] MEDS: LEVAQUIN PREMIX IV 750 MG 750 MG/150 ML BAG IV SCH (09:13)
[2019-11-15] MEDS: NexIUM PO SCH (09:16)
[2019-11-15] MEDS ORDERED: GLUCOPHAGE ONE ×3 (09:19→21:01)
[2019-11-15] MEDS: PATIENT'S HOME MEDICATION (Empagliflozin [Jardiance] 25 MG) PO SCH (09:19)
[2019-11-15] MEDS: GLUCOPHAGE PO SCH ×2 (09:19→21:19)
[2019-11-15] MEDS: VORTIOXETINE 5 MG PO SCH (09:19)
[2019-11-15] MEDS: TYLENOL 325 MG TAB PO PRN (10:01)
--- NOTE | 2019-11-15 11:23 | PCM.PROG ---
Progress Note - Progress Note for Day of Date of Exam: 11/15/19 - Subjective Subjective: IS BEING TREATED FOR COVID-19, PNEUMONIA, AND HYPONATREMIA. TODAY, SHE IS ALERT AND ORIENTED, LYING IN BED ON MORNING ROUNDS. SHE CONTINUES WITH COMPLAINTS OF SHORTNESS OF BREATH AND WEAKNESS, BUT REPORTS SLIGHT IMPROVEMENT OF SYMPTOMS TODAY. ON EXAMINATION, SHE IS TACHYCARDIC WITH HR 110- 120 BPM. BILATERAL LUNGS ARE NOTED WITH DIMINISHED LUNG SOUNDS THROUGHOUT. ABDOMEN IS ROUND, SOFT, AND NON-TENDER WITH NORMAL BOWEL SOUNDS NOTED IN ALL QUADRANTS. HER VITALS THIS MORNING ARE 97.7-115-29-93%NC-109/60. LABS WERE OBTAINED. ABNORMAL LAB VALUES INCLUDE THE FOLLOWING: SODIUM 133, CARBON DIOXIDE 15.8, GLUCOSE 265, ALK PHOS 158, CRP 23.70, ALBUMIN 2.2. BLOOD CULTURES ARE NEGATIVE. A CHEST XRAY WAS OBTAINED AND REVEALED: Right upper and right lower lobe infiltrates unchanged. Significant improvement left upper lobe infiltrate. SHE IS CURRENTLY RECEIVING NS AT 25ML/HR, LEVAQUIN 750MG IV DAILY, REMDESIVIR 100MG IV DAILY, SOLU-MEDROL 80MG IV TID, HUMULIN R SLIDING SCALE TORADOL 30MG IV Q8H, ROBITUSSIN DM 10M PO QID, TUSSIONEX 5ML PO Q12H, AND DUONEBS Q6H. TODAY, WE WILL START PULMICORT NEB [place] BID. OTHERWISE, WE WILL FOLLOW UP WITH AM LABS AND CHEST XRAY AND CONTINUE TO MONITOR. - Past Medical Family Social History Past Med/Fam/Surg Hx: No changes since H&P Allergies: Allergies No Known Drug Allergies Allergy (Verified 11/06/19 13:06) - Review of Systems ROS: No change since H&P - Vital Signs and I&O's Vital Signs: Temperature 97.7 F Pulse Rate [Apical] 121 Pulse Rate 100 Respiratory Rate 33 Blood Pressure [Left Arm] 109/63 Blood Pressure 124/63 O2 Sat by Pulse Oximetry 92 Intake and Output: Intake & Output 11/12/19 11/13/19 11/14/19 11/15/19 11:59 11:59 11:59 11:59 Intake Total 4201 / 4201 3599 / 3599 1916 / 1916 3610 / 3610 Output Total 5100 / 5100 1800 / 1800 Balance 4201 / 4201 -1501 / -1501 116 / 116 3610 / 3610 - Physical Exam Oriented: Normal Eyes: Normal Ear: Normal Nose: Normal Throat: Normal Respiratory: Generalized, Diminished Cardiovascular: Normal : Normal Auscultation: Bowel Sounds: Normal Palpation: Normal Tenderness: Normal Skin: Normal Musculoskeletal: Normal Psychiatric: Normal Mood Description: Calm Affect: Normal Speech Pattern: Clear, Appropriate - Laboratory and Diagnostics Result Diagrams: 11/15/19 04:20 11/15/19 04:20 Labs: 11/06/19 12:59 Blood Blood Culture - Final 11/06/19 12:53 Blood Blood Culture - Final Laboratory WBC 5.3 X10^3/uL (3.6-10.0) 11/15/19 04:20 RBC 4.26 X10^6/uL (3.5-5.4) 11/15/19 04:20 Hgb 12.4 g/dL (12.0-16.0) 11/15/19 04:20 Hct 37.2 % (36.0-47.0) 11/15/19 04:20 MCV 87.2 fL (80.0-100.0) 11/15/19 04:20 MCH 29.0 pg (27.0-34.0) 11/15/19 04:20 MCHC 33.2 g/dL (33.0-35.0) 11/15/19 04:20 RDW 13.9 % (11.6-16.5) 11/15/19 04:20 Plt Count 445 X10^3/uL (150.0-450.0) 11/15/19 04:20 Plt Count Comment Increased (ADEQUATE) A 11/15/19 04:20 MPV 7.2 fL (7.4-11.0) L 11/15/19 04:20 Neut % (Auto) 88.6 % (42.0-75.0) H 11/15/19 04:20 Lymph % (Auto) 7.0 % (21.0-51.0) L 11/15/19 04:20 [place] % (Auto) 4.0 % (0.0-13.0) 11/15/19 04:20 Eos % (Auto) 0.2 % (0.9-2.9) L 11/15/19 04:20 Baso % (Auto) 0.2 % (0.2-1.0) 11/15/19 04:20 Neut # (Auto) 4.7 x10^3/uL (2.2-4.8) 11/15/19 04:20 Lymph # (Auto) 0.4 X10^3/uL (1.3-2.9) L 11/15/19 04:20 [place] # (Auto) 0.2 x10^3/uL (0.3-0.8) L 11/15/19 04:20 Eos # (Auto) 0.0 x10^3/uL (0.0-0.2) 11/15/19 04:20 Baso # (Auto) 0.0 X10^3/uL (0.0-0.1) 11/15/19 04:20 Absolute Nucleated RBC 0.2 /100WBC 11/15/19 04:20 Total Counted 100 11/15/19 04:20 Neutrophils % (Manual) 85 % (39-76) H 11/15/19 04:20 Band Neutrophils % 8 % (0-10) 11/15/19 04:20 Lymphocytes % (Manual) 7 % (13-43) L 11/15/19 04:20 Monocytes % (Manual) 4 % (4-9) 11/11/19 05:02 Giant Platelets Few 11/15/19 04:20 Plt Morphology Comment Abnormal (NORMAL) A 11/15/19 04:20 RBC Morphology Normal (NORMAL) 11/15/19 04:20 Sample Site Rr 11/13/19 06:00 ABG pH 7.400 (7.35-7.45) 11/13/19 06:00 ABG pCO2 35.0 mmHg (35.0-45.0) 11/13/19 06:00 ABG pO2 74.0 mmHg (80.0-100.0) L 11/13/19 06:00 ABG HCO3 21.7 mmol/L (22-26) L 11/13/19 06:00 ABG O2 Saturation 95.0 % (90-100) 11/13/19 06:00 ABG Base Excess -2.6 mmol/L (-2.0-2.0) L 11/13/19 06:00 Dieter Test Pos 11/13/19 06:00 A-a Gradient 189.0 mmHg 07/12/20 06:00 FiO2 43.0 11/13/19 06:00 Blood Gas Comments Serafin well sw 11/13/19 06:00 Sodium 133 mmol/L (136-145) L 11/15/19 04:20 Corrected Sodium 137 mmol/L (136-145) 11/15/19 04:20 Potassium 4.4 mmol/L (3.5-5.1) 11/15/19 04:20 Chloride 100 mmol/L (98-107) 11/15/19 04:20 Carbon Dioxide 15.8 mmol/L (21-32) L 11/15/19 04:20 BUN 12 mg/dL (7-18) 11/15/19 04:20 Creatinine 0.65 mg/dL (0.55-1.02) 11/15/19 04:20 Est GFR (MDRD) Af Amer > 60 (>60) 11/15/19 04:20 Est GFR (MDRD) Non-Af > 60 (>60) 11/15/19 04:20 Glucose 265 mg/dL (65-99) H 11/15/19 04:20 Lactic Acid 0.9 mmol/L (0.4-2.0) 11/10/19 10:10 Calcium 8.7 mg/dL (8.5-10.1) 11/15/19 04:20 Corrected Calcium 10.1 mg/dL (8.5-10.1) 11/15/19 04:20 Magnesium 1.7 mg/dL (1.7-2.9) 11/14/19 04:30 Ferritin 152 ng/mL (8-252) 11/15/19 04:20 Total Bilirubin 0.30 mg/dL (0.2-1.0) 11/15/19 04:20 AST 15 Units/L (15-37) 11/15/19 04:20 ALT 26 Units/L (12-78) 11/15/19 04:20 Alkaline Phosphatase 158 Units/L (46-116) H 11/15/19 04:20 Lactate Dehydrogenase 283 Units/L (81-234) H 11/06/19 12:53 C-Reactive Protein 23.70 mg/L (0-3.0) H 11/15/19 04:20 Total Protein 6.5 g/dL (6.4-8.2) 11/15/19 04:20 Albumin 2.2 g/dL (3.4-5.0) L 11/15/19 04:20 Globulin 4.3 g/dL (2.5-4.5) 11/15/19 04:20 Albumin/Globulin Ratio 0.5 Ratio (1.1-2.1) L 11/15/19 04:20 Amylase 69 Units/L (25-115) 11/06/19 12:53 Lipase 471 Units/L (73-393) H 11/06/19 12:53 Specimen Type Clean catch urine 11/06/19 18:00 Urine Color Yellow (YELLOW) 11/06/19 18:00 Urine Appearance Clear (CLEAR) 11/06/19 18:00 Urine pH 5.0 (5.0 - 8.0) 11/06/19 18:00 Ur Specific [place] 1.020 (1.000-1.030) 11/06/19 18:00 Urine Protein 2+ (NEGATIVE) 11/06/19 18:00 Urine Glucose (UA) 4+ (NEGATIVE) 11/06/19 18:00 Urine Ketones 2+ (NEGATIVE) 11/06/19 18:00 Urine Occult Blood Negative (NEGATIVE) 11/06/19 18:00 Urine Nitrite Negative (NEGATIVE) 11/06/19 18:00 Urine Bilirubin Negative (NEGATIVE) 11/06/19 18:00 Urine Urobilinogen Normal (NORMAL) 11/06/19 18:00 Ur Leukocyte Esterase Negative (NEGATIVE) 11/06/19 18:00 Urine RBC None seen /HPF (0-3) 11/06/19 18:00 Urine WBC 0-2 /HPF (0-5) 11/06/19 18:00 Ur Squamous Epith Cells Rare /HPF (NEGATIVE) 11/06/19 18:00 Amorphous Sediment Trace /HPF (NEGATIVE) 11/06/19 18:00 Urine Bacteria Negative /HPF (NEGATIVE) 11/06/19 18:00 Hyaline Casts Rare /LPF (NEGATIVE) 11/06/19 18:00 Urine Mucus Moderate /HPF (NEGATIVE) 11/06/19 18:00 Ur Culture Indicated? No/not indicated 11/06/19 18:00 Acetone, Semi-Quant Negative (NEGATIVE) 11/06/19 12:53 Influenza Type A Ag Negative-presumptive (NEGATIVE) 11/06/19 15:30 Influenza Type B Ag Negative-presumptive (NEGATIVE) 11/06/19 15:30 SARS-CoV-2 (PCR) Positive (NEGATIVE) A 11/06/19 15:30 S. pyogenes (TEM-PCR) Not detected (NOT DETECT) 11/06/19 15:30 - Plan (1) COVID-19 Status: Acute Plan: NS AT 25ML/HR, LEVAQUIN 750MG IV DAILY, ROBITUSSIN DM 10M PO QID, TUSSIONEX 5ML PO Q12H, AND DUONEBS Q6H, REMDESIVIR 100MG IV DAILY, SOLU-MEDROL 80MG IV Q8H, PULMICORT NEB [place] BID, HUMULIN R SLIDING SCALE (2) Pneumonia Status: Acute Qualifiers: Pneumonia type: due to unspecified organism Laterality: bilateral Lung location: lower lobe of lung Qualified Code(s): J18.9 - Pneumonia, unspecified organism (3) Hyponatremia Status: Acute (4) Hypotension Status: Acute Qualifiers: Hypotension type: unspecified hypotension type Qualified Code(s): I95.9 - Hypotension, unspecified (5) Diabetes Status: Chronic Qualifiers: Diabetes mellitus type: type 2 Diabetes mellitus intermediate designer insulin use: unspecified intermediate designer insulin use status Diabetes mellitus complication status: with hyperglycemia Qualified Code(s): E11.65 - Type 2 diabetes mellitus with hyperglycemia Plan: CONTINUE HOME MEDS, CONTINUE TO MONITOR (6) Depression Status: Chronic Qualifiers: Depression Type: unspecified Qualified Code(s): F32.9 - Major depressive disorder, single episode, unspecified Plan: CONTINUE HOME MEDS, CONTINUE TO MONITOR
[2019-11-15] MEDS: HumuLIN R SUBCUT PRN ×2 (11:39→16:26)
[2019-11-15] MEDS: PULMICORT NEB TX 0.5 MG NEB SCH ×2 (13:30→20:50)
[2019-11-15] MEDS ORDERED: ROBITUSSIN DM ONE (20:07)
[2019-11-15] MEDS: SNACK - Diabetic Appropriate PO SCH (21:17)
[2019-11-15] MEDS: SYNTHROID 50 mcg TAB PO SCH (21:18)
[2019-11-15] MEDS: DIFLUCAN PO SCH (21:19)
[2019-11-15] MEDS: LOVASTATIN 20 MG PO SCH (21:24)
[2019-11-16] MEDS: XOPENEX 1.25 MG/3 ML NEBULE NEB PRN ×4 (00:25→17:10)
[2019-11-16 04:59] LABS: BASOPHILS % (AUTO) 0.2 % (0.2-1.0); HEMOGLOBIN 12.2 g/dL (12.0-16.0); LYMPHOCYTES # (AUTO) 0.5 X10^3/uL (1.3-2.9); LYMPHOCYTES % (AUTO) 5.5 % (21.0-51.0); MEAN CORPUSCULAR HEMOGLOBIN 28.7 pg (27.0-34.0); MEAN CORPUSCULAR VOLUME 86.9 fL (80.0-100.0); MEAN PLATELET VOLUME 7.1 fL (7.4-11.0); MONOCYTES # (AUTO) 0.6 x10^3/uL (0.3-0.8); MONOCYTES % (AUTO) 6.3 % (0.0-13.0); NEUTROPHILS # (AUTO) 8.4 x10^3/uL (2.2-4.8); PLATELET COUNT 505 X10^3/uL (150.0-450.0); RED BLOOD COUNT 4.26 X10^6/uL (3.5-5.4); RED CELL DISTRIBUTION WIDTH 13.3 % (11.6-16.5); WHITE BLOOD COUNT 9.5 X10^3/uL (3.6-10.0)
[2019-11-16 05:19] LABS: ALANINE AMINOTRANSFERASE 24 Units/L (12-78); ALBUMIN 2.4 g/dL (3.4-5.0); ALKALINE PHOSPHATASE 138 Units/L (46-116); ASPARTATE AMINO TRANSFERASE 11 Units/L (15-37); BLOOD UREA NITROGEN 11 mg/dL (7-18); CALCIUM 8.9 mg/dL (8.5-10.1); CARBON DIOXIDE 18.4 mmol/L (21-32); CHLORIDE 102 mmol/L (98-107); COR CA(FOR HYPOALB) 10.2 mg/dL (8.5-10.1); COR NA(FOR HYPERGLY) 139 mmol/L (136-145); CREATININE 0.63 mg/dL (0.55-1.02); SODIUM 135 mmol/L (136-145); TOTAL PROTEIN 6.4 g/dL (6.4-8.2); eGFR NON BLACK RACES > 60 (>60)
[2019-11-16] MEDS: NS 1000 ML 1,000 ML IV SCH ×3 (06:14→22:04)
[2019-11-16] MEDS: SOLU-Medrol 40 MG VIAL IVP SCH ×3 (06:14→21:00)
[2019-11-16] MEDS: HumuLIN R SUBCUT PRN ×4 (06:16→21:00)
--- NOTE | 2019-11-16 06:21 | RAD ---
HISTORYShortness of breathSTUDYChest AP [id number] heart is upper limits normal in size. The lungs are somewhat hypoinflated. Considering a difference in film technique there is no significant change in the right upper and right lower lobe infiltrates. Left perihilar infiltrates are somewhat more prominent than on the prior examination. No pleural effusions are identified. Bony thorax is unremarkable.IMPRESSIONHypo inflationNo change right lung infiltratesIncreasing left perihilar infiltrate compared to the prior examinationElectronically signed by: CAREN GARCIA (Nov 16, 2019 06:20:37)
[2019-11-16] MEDS: PULMICORT NEB TX 0.5 MG NEB SCH ×2 (08:45→21:39)
[2019-11-16] MEDS ORDERED: GLUCOPHAGE ONE ×2 (09:26→20:00)
[2019-11-16] MEDS: VORTIOXETINE 5 MG PO SCH (09:38)
[2019-11-16] MEDS: GLUCOPHAGE PO SCH ×2 (09:39→21:00)
[2019-11-16] MEDS: PATIENT'S HOME MEDICATION (Empagliflozin [Jardiance] 25 MG) PO SCH (09:39)
[2019-11-16] MEDS: HEMOCYTE-PLUS PO SCH (09:39)
[2019-11-16] MEDS: NexIUM PO SCH (09:40)
[2019-11-16] MEDS: LOVENOX INJ 40 MG SYR SC SCH (09:40)
[2019-11-16] MEDS: VSL#3 PO SCH (09:41)
[2019-11-16] MEDS: LOPRESSOR TAB 25 MG PO SCH ×2 (09:41→21:00)
[2019-11-16] MEDS: LEVAQUIN PREMIX IV 750 MG 750 MG/150 ML BAG IV SCH (09:41)
[2019-11-16] MEDS: REMDESIVIR (INVESTIGATIONAL DRUG GS-5734) 100 MG in NS 250 ML IV 250 ML IV SCH (09:42)
[2019-11-16] MEDS: ROBITUSSIN DM PO SCH ×5 (09:42→22:08)
[2019-11-16] MEDS ORDERED: LANOXIN PO ONE (10:02)
[2019-11-16] MEDS: SNACK - Diabetic Appropriate PO SCH (20:00)
[2019-11-16] MEDS: LOVASTATIN 20 MG PO SCH (21:00)
[2019-11-16] MEDS: SYNTHROID 50 mcg TAB PO SCH (21:00)
[2019-11-16] MEDS: NORCO 5/325 MG TAB PO PRN (21:00)
[2019-11-16] MEDS: DIFLUCAN PO SCH (21:00)
[2019-11-17] MEDS: XOPENEX 1.25 MG/3 ML NEBULE NEB PRN ×4 (00:20→17:25)
[2019-11-17] MEDS: NS 1000 ML 1,000 ML IV SCH ×3 (04:43→22:29)
[2019-11-17 05:17] LABS: BASOPHILS % (AUTO) 0.3 % (0.2-1.0); HEMATOCRIT 34.1 % (36.0-47.0); HEMOGLOBIN 11.6 g/dL (12.0-16.0); LYMPHOCYTES # (AUTO) 0.6 X10^3/uL (1.3-2.9); LYMPHOCYTES % (AUTO) 6.4 % (21.0-51.0); MEAN CORPUSCULAR HEMOGLOBIN 29.2 pg (27.0-34.0); MEAN CORPUSCULAR VOLUME 85.9 fL (80.0-100.0); MEAN PLATELET VOLUME 7.4 fL (7.4-11.0); MONOCYTES # (AUTO) 0.7 x10^3/uL (0.3-0.8); MONOCYTES % (AUTO) 7.6 % (0.0-13.0); NEUTROPHILS # (AUTO) 7.7 x10^3/uL (2.2-4.8); NEUTROPHILS % (AUTO) 85.7 % (42.0-75.0); PLATELET COUNT 453 X10^3/uL (150.0-450.0); RED BLOOD COUNT 3.97 X10^6/uL (3.5-5.4); RED CELL DISTRIBUTION WIDTH 13.9 % (11.6-16.5)
[2019-11-17 05:28] LABS: ALANINE AMINOTRANSFERASE 23 Units/L (12-78); ALBUMIN 2.4 g/dL (3.4-5.0); ALKALINE PHOSPHATASE 118 Units/L (46-116); ASPARTATE AMINO TRANSFERASE 11 Units/L (15-37); BLOOD UREA NITROGEN 15 mg/dL (7-18); CALCIUM 8.7 mg/dL (8.5-10.1); CHLORIDE 100 mmol/L (98-107); COR NA(FOR HYPERGLY) 137 mmol/L (136-145); CREATININE 0.58 mg/dL (0.55-1.02); SODIUM 134 mmol/L (136-145); TOTAL PROTEIN 5.9 g/dL (6.4-8.2); eGFR NON BLACK RACES > 60 (>60)
--- NOTE | 2019-11-17 06:09 | RAD ---
HISTORYShortness of breathSTUDYChest AP [id number] heart is upper limits normal in size. The lungs remain mildly hypoinflated. Even considering a difference in film technique there does appear to be some improvement in the bilateral infiltrates being followed. Significant infiltrate remains. No pleural effusions are identified. Bony thorax is unremarkable.IMPRESSIONSome improvement in the bilateral infiltrates being followed. Significant infiltrate remainsElectronically signed by: CAREN GARCIA (Nov 17, 2019 06:07:39)
[2019-11-17] MEDS: SOLU-Medrol 40 MG VIAL IVP SCH ×3 (06:10→22:00)
[2019-11-17] MEDS: HumuLIN R SUBCUT PRN ×4 (06:11→21:00)
--- NOTE | 2019-11-17 08:40 | PCM.PROG ---
Progress Note - Progress Note for Day of Date of Exam: 11/16/19 - Subjective Subjective: IS BEING TREATED FOR COVID-19, PNEUMONIA, AND HYPONATREMIA. TODAY, SHE IS ALERT AND ORIENTED, LYING IN BED ON MORNING ROUNDS. SHE CONTINUES WITH COMPLAINTS OF SHORTNESS OF BREATH AND WEAKNESS, BUT CONTINUES TO REPORTS IMPROVEMENT IN SYMPTOMS TODAY. ON EXAMINATION, SHE IS TACHYCARDIC WITH HR 110- 120s. BILATERAL LUNGS ARE NOTED WITH DIMINISHED LUNG SOUNDS THROUGHOUT. ABDOMEN IS ROUND, SOFT, AND NON-TENDER WITH NORMAL BOWEL SOUNDS NOTED IN ALL QUADRANTS. HER VITALS THIS MORNING ARE 97.8-119-28-95%-117/67. LABS WERE OBTAINED. ABNORMAL LAB VALUES INCLUDE THE FOLLOWING: SODIUM 135, CARBON DIOXIDE 18.4, GLUCOSE 261, AST 11, ALK PHOS 138, CRP 8.70, ALBUMIN 2.4. BLOOD CULTURES ARE NEGATIVE. A CHEST XRAY WAS OBTAINED AND REVEALED: Hypo inflation. No change right lung infiltrates. Increasing left perihilar infiltrate compared to the prior examination. SHE IS CURRENTLY RECEIVING NS AT 50ML/HR, LEVAQUIN 750MG IV DAILY, REMDESIVIR 100MG IV DAILY, SOLU-MEDROL 80MG IV TID, HUMULIN R SLIDING SCALE, ROBITUSSIN DM 10M PO QID, TUSSIONEX 5ML PO Q12H, AND DUONEBS Q6H, AND PULMICORT NEBS BID. TODAY, WE WILL ADMINISTER DIGOXIN 0.125MG PO X 1 DOSE DUE TO TACHYCARDIA. OTHERWISE, WE WILL FOLLOW UP WITH AM LABS AND CHEST XRAY AND CONTINUE TO MONITOR. - Past Medical Family Social History Past Med/Fam/Surg Hx: No changes since H&P Allergies: Allergies No Known Drug Allergies Allergy (Verified 11/06/19 13:06) - Review of Systems ROS: No change since H&P - Vital Signs and I&O's Vital Signs: Temperature 98.0 F Pulse Rate [Apical] 121 Pulse Rate 127 Respiratory Rate 28 Blood Pressure [Left Arm] 109/63 Blood Pressure 129/59 O2 Sat by Pulse Oximetry 94 Intake and Output: Intake & Output 11/14/19 11/15/19 11/16/19 11/17/19 11:59 11:59 11:59 11:59 Intake Total 1916 / 1916 3610 / 3610 3270 / 3270 2440 / 2440 Output Total 1800 / 1800 Balance 116 / 116 3610 / 3610 3270 / 3270 2440 / 2440 - Physical Exam Oriented: Normal Eyes: Normal Ear: Normal Nose: Normal Throat: Normal Respiratory: Generalized, Diminished Cardiovascular: Normal : Normal Auscultation: Bowel Sounds: Normal Palpation: Normal Tenderness: Normal Skin: Normal Musculoskeletal: Normal Psychiatric: Normal Mood Description: Calm Affect: Normal Speech Pattern: Clear, Appropriate - Laboratory and Diagnostics Result Diagrams: 11/17/19 04:40 11/17/19 04:40 Labs: 11/06/19 12:59 Blood Blood Culture - Final 11/06/19 12:53 Blood Blood Culture - Final Laboratory WBC 9.0 X10^3/uL (3.6-10.0) 11/17/19 04:40 RBC 3.97 X10^6/uL (3.5-5.4) 11/17/19 04:40 Hgb 11.6 g/dL (12.0-16.0) L 11/17/19 04:40 Hct 34.1 % (36.0-47.0) L 11/17/19 04:40 MCV 85.9 fL (80.0-100.0) 11/17/19 04:40 MCH 29.2 pg (27.0-34.0) 11/17/19 04:40 MCHC 34.0 g/dL (33.0-35.0) 11/17/19 04:40 RDW 13.9 % (11.6-16.5) 11/17/19 04:40 Plt Count 453 X10^3/uL (150.0-450.0) H 11/17/19 04:40 Plt Count Comment Increased (ADEQUATE) A 11/15/19 04:20 MPV 7.4 fL (7.4-11.0) 11/17/19 04:40 Neut % (Auto) 85.7 % (42.0-75.0) H 11/17/19 04:40 Lymph % (Auto) 6.4 % (21.0-51.0) L 11/17/19 04:40 [place] % (Auto) 7.6 % (0.0-13.0) 11/17/19 04:40 Eos % (Auto) 0.0 % (0.9-2.9) L 11/17/19 04:40 Baso % (Auto) 0.3 % (0.2-1.0) 11/17/19 04:40 Neut # (Auto) 7.7 x10^3/uL (2.2-4.8) H 11/17/19 04:40 Lymph # (Auto) 0.6 X10^3/uL (1.3-2.9) L 11/17/19 04:40 [place] # (Auto) 0.7 x10^3/uL (0.3-0.8) 11/17/19 04:40 Eos # (Auto) 0.0 x10^3/uL (0.0-0.2) 11/17/19 04:40 Baso # (Auto) 0.0 X10^3/uL (0.0-0.1) 11/17/19 04:40 Absolute Nucleated RBC 0.0 /100WBC 11/17/19 04:40 Total Counted 100 11/15/19 04:20 Neutrophils % (Manual) 85 % (39-76) H 11/15/19 04:20 Band Neutrophils % 8 % (0-10) 11/15/19 04:20 Lymphocytes % (Manual) 7 % (13-43) L 11/15/19 04:20 Monocytes % (Manual) 4 % (4-9) 11/11/19 05:02 Giant Platelets Few 11/15/19 04:20 Plt Morphology Comment Abnormal (NORMAL) A 11/15/19 04:20 RBC Morphology Normal (NORMAL) 11/15/19 04:20 Sample Site Rr 11/13/19 06:00 ABG pH 7.400 (7.35-7.45) 11/13/19 06:00 ABG pCO2 35.0 mmHg (35.0-45.0) 11/13/19 06:00 ABG pO2 74.0 mmHg (80.0-100.0) L 11/13/19 06:00 ABG HCO3 21.7 mmol/L (22-26) L 11/13/19 06:00 ABG O2 Saturation 95.0 % (90-100) 11/13/19 06:00 ABG Base Excess -2.6 mmol/L (-2.0-2.0) L 11/13/19 06:00 Dieter Test Pos 11/13/19 06:00 A-a Gradient 189.0 mmHg 11/13/19 06:00 FiO2 43.0 11/13/19 06:00 Blood Gas Comments Serafin well sw 11/13/19 06:00 Sodium 134 mmol/L (136-145) L 11/17/19 04:40 Corrected Sodium 137 mmol/L (136-145) 11/17/19 04:40 Potassium 3.8 mmol/L (3.5-5.1) 11/17/19 04:40 Chloride 100 mmol/L (98-107) 11/17/19 04:40 Carbon Dioxide 22.0 mmol/L (21-32) 11/17/19 04:40 BUN 15 mg/dL (7-18) 11/17/19 04:40 Creatinine 0.58 mg/dL (0.55-1.02) 11/17/19 04:40 Est GFR (MDRD) Af Amer > 60 (>60) 11/17/19 04:40 Est GFR (MDRD) Non-Af > 60 (>60) 11/17/19 04:40 Glucose 218 mg/dL (65-99) H 11/17/19 04:40 Lactic Acid 0.9 mmol/L (0.4-2.0) 11/10/19 10:10 Calcium 8.7 mg/dL (8.5-10.1) 11/17/19 04:40 Corrected Calcium 10.0 mg/dL (8.5-10.1) 11/17/19 04:40 Magnesium 1.7 mg/dL (1.7-2.9) 11/14/19 04:30 Ferritin 118 ng/mL (8-252) 11/17/19 04:40 Total Bilirubin 0.30 mg/dL (0.2-1.0) 11/17/19 04:40 AST 11 Units/L (15-37) L 11/17/19 04:40 ALT 23 Units/L (12-78) 11/17/19 04:40 Alkaline Phosphatase 118 Units/L (46-116) H 11/17/19 04:40 Lactate Dehydrogenase 283 Units/L (81-234) H 11/06/19 12:53 C-Reactive Protein 2.60 mg/L (0-3.0) 11/17/19 04:40 Total Protein 5.9 g/dL (6.4-8.2) L 11/17/19 04:40 Albumin 2.4 g/dL (3.4-5.0) L 11/17/19 04:40 Globulin 3.5 g/dL (2.5-4.5) 11/17/19 04:40 Albumin/Globulin Ratio 0.7 Ratio (1.1-2.1) L 11/17/19 04:40 Amylase 69 Units/L (25-115) 11/06/19 12:53 Lipase 471 Units/L (73-393) H 11/06/19 12:53 Specimen Type Clean catch urine 11/06/19 18:00 Urine Color Yellow (YELLOW) 11/06/19 18:00 Urine Appearance Clear (CLEAR) 11/06/19 18:00 Urine pH 5.0 (5.0 - 8.0) 11/06/19 18:00 Ur Specific [place] 1.020 (1.000-1.030) 11/06/19 18:00 Urine Protein 2+ (NEGATIVE) 11/06/19 18:00 Urine Glucose (UA) 4+ (NEGATIVE) 11/06/19 18:00 Urine Ketones 2+ (NEGATIVE) 11/06/19 18:00 Urine Occult Blood Negative (NEGATIVE) 11/06/19 18:00 Urine Nitrite Negative (NEGATIVE) 11/06/19 18:00 Urine Bilirubin Negative (NEGATIVE) 11/06/19 18:00 Urine Urobilinogen Normal (NORMAL) 11/06/19 18:00 Ur Leukocyte Esterase Negative (NEGATIVE) 11/06/19 18:00 Urine RBC None seen /HPF (0-3) 11/06/19 18:00 Urine WBC 0-2 /HPF (0-5) 11/06/19 18:00 Ur Squamous Epith Cells Rare /HPF (NEGATIVE) 11/06/19 18:00 Amorphous Sediment Trace /HPF (NEGATIVE) 11/06/19 18:00 Urine Bacteria Negative /HPF (NEGATIVE) 11/06/19 18:00 Hyaline Casts Rare /LPF (NEGATIVE) 11/06/19 18:00 Urine Mucus Moderate /HPF (NEGATIVE) 11/06/19 18:00 Ur Culture Indicated? No/not indicated 11/06/19 18:00 Acetone, Semi-Quant Negative (NEGATIVE) 11/06/19 12:53 Influenza Type A Ag Negative-presumptive (NEGATIVE) 11/06/19 15:30 Influenza Type B Ag Negative-presumptive (NEGATIVE) 11/06/19 15:30 SARS-CoV-2 (PCR) Positive (NEGATIVE) A 11/06/19 15:30 S. pyogenes (TEM-PCR) Not detected (NOT DETECT) 11/06/19 15:30 - Plan (1) COVID-19 Status: Acute Plan: NS AT 50ML/HR, LEVAQUIN 750MG IV DAILY, ROBITUSSIN DM 10M PO QID, TUSSIONEX 5ML PO Q12H, AND DUONEBS Q6H, REMDESIVIR 100MG IV DAILY, SOLU-MEDROL 80MG IV Q8H, PULMICORT NEB [place] BID, HUMULIN R SLIDING SCALE (2) Pneumonia Status: Acute Qualifiers: Pneumonia type: due to unspecified organism Laterality: bilateral Lung location: lower lobe of lung Qualified Code(s): J18.9 - Pneumonia, unspecified organism (3) Hyponatremia Status: Acute (4) Hypotension Status: Acute Qualifiers: Hypotension type: unspecified hypotension type Qualified Code(s): I95.9 - Hypotension, unspecified (5) Diabetes Status: Chronic Qualifiers: Diabetes mellitus type: type 2 Diabetes mellitus mcfp insulin use: unspecified mcfp insulin use status Diabetes mellitus complication status: with hyperglycemia Qualified Code(s): E11.65 - Type 2 diabetes mellitus with hyperglycemia Plan: CONTINUE HOME MEDS, CONTINUE TO MONITOR (6) Depression Status: Chronic Qualifiers: Depression Type: unspecified Qualified Code(s): F32.9 - Major depressive disorder, single episode, unspecified Plan: CONTINUE HOME MEDS, CONTINUE TO MONITOR
[2019-11-17] MEDS: PULMICORT NEB TX 0.5 MG NEB SCH ×2 (09:11→21:40)
[2019-11-17] MEDS: PATIENT'S HOME MEDICATION (Empagliflozin [Jardiance] 25 MG) PO SCH (09:36)
[2019-11-17] MEDS ORDERED: GLUCOPHAGE ONE ×2 (09:40→20:17)
[2019-11-17] MEDS: VSL#3 PO SCH (09:41)
[2019-11-17] MEDS: GLUCOPHAGE PO SCH ×2 (09:41→21:00)
[2019-11-17] MEDS: HEMOCYTE-PLUS PO SCH (09:42)
[2019-11-17] MEDS: LOPRESSOR TAB 25 MG PO SCH ×2 (09:42→21:00)
[2019-11-17] MEDS: NexIUM PO SCH (09:43)
[2019-11-17] MEDS: LEVAQUIN PREMIX IV 750 MG 750 MG/150 ML BAG IV SCH (09:47)
[2019-11-17] MEDS: REMDESIVIR (INVESTIGATIONAL DRUG GS-5734) 100 MG in NS 250 ML IV 250 ML IV SCH (09:47)
[2019-11-17] MEDS: ROBITUSSIN DM PO SCH ×4 (10:13→22:34)
[2019-11-17] MEDS: LOVENOX INJ 40 MG SYR SC SCH (10:13)
[2019-11-17] MEDS: VORTIOXETINE 5 MG PO SCH (10:13)
[2019-11-17] MEDS ORDERED: SOLU-Medrol 125 MG VIAL ONE (15:20)
[2019-11-17] MEDS: SNACK - Diabetic Appropriate PO SCH (20:00)
[2019-11-17] MEDS: LOVASTATIN 20 MG PO SCH (21:00)
[2019-11-17] MEDS: NORCO 5/325 MG TAB PO PRN (21:00)
[2019-11-17] MEDS: SYNTHROID 50 mcg TAB PO SCH (21:00)
[2019-11-17] MEDS ORDERED: DIFLUCAN PO SCH (21:00)
[2019-11-18] MEDS: NS 1000 ML 1,000 ML IV SCH (04:24)
[2019-11-18] MEDS: SOLU-Medrol 40 MG VIAL IVP SCH (05:15)
[2019-11-18 05:51] LABS: BASOPHILS % (AUTO) 0.3 % (0.2-1.0); HEMATOCRIT 35.3 % (36.0-47.0); LYMPHOCYTES # (AUTO) 0.6 X10^3/uL (1.3-2.9); LYMPHOCYTES % (AUTO) 7.7 % (21.0-51.0); MEAN CORPUSCULAR HGB CONC 33.9 g/dL (33.0-35.0); MEAN CORPUSCULAR VOLUME 85.6 fL (80.0-100.0); MEAN PLATELET VOLUME 7.3 fL (7.4-11.0); MONOCYTES # (AUTO) 0.6 x10^3/uL (0.3-0.8); MONOCYTES % (AUTO) 8.6 % (0.0-13.0); NEUTROPHILS # (AUTO) 6.1 x10^3/uL (2.2-4.8); NEUTROPHILS % (AUTO) 83.4 % (42.0-75.0); PLATELET COUNT 439 X10^3/uL (150.0-450.0); RED BLOOD COUNT 4.13 X10^6/uL (3.5-5.4); RED CELL DISTRIBUTION WIDTH 13.3 % (11.6-16.5); WHITE BLOOD COUNT 7.3 X10^3/uL (3.6-10.0)
[2019-11-18 06:09] LABS: ALANINE AMINOTRANSFERASE 26 Units/L (12-78); ALBUMIN 2.5 g/dL (3.4-5.0); ALKALINE PHOSPHATASE 124 Units/L (46-116); ASPARTATE AMINO TRANSFERASE 14 Units/L (15-37); BLOOD UREA NITROGEN 16 mg/dL (7-18); CALCIUM 8.7 mg/dL (8.5-10.1); CHLORIDE 100 mmol/L (98-107); COR CA(FOR HYPOALB) 9.9 mg/dL (8.5-10.1); COR NA(FOR HYPERGLY) 137 mmol/L (136-145); CREATININE 0.61 mg/dL (0.55-1.02); SODIUM 133 mmol/L (136-145); eGFR NON BLACK RACES > 60 (>60)
[2019-11-18 06:15] LABS: BAND NEUTROPHILS % 4 % (0-10); PLATELET MORPHOLOGY COMMENT NORMAL (NORMAL)
--- NOTE | 2019-11-18 06:29 | RAD ---
HISTORYShortness of breathSTUDYChest AP [id number] heart is upper limits normal in size. No congestive heart failure is noted. The lungs remain mildly hypoinflated. Bilateral lung infiltrates are unchanged from the prior examination. No pleural effusions are identified. Bony thorax is unremarkable.IMPRESSIONNo change bilateral infiltratesElectronically signed by: CAREN GARCIA (Nov 18, 2019 06:28:07)
[2019-11-18] MEDS: HumuLIN R SUBCUT PRN (06:34)
--- NOTE | 2019-11-18 08:38 | PCM.PROG ---
Progress Note - Progress Note for Day of Date of Exam: 11/17/19 - Subjective Subjective: IS BEING TREATED FOR COVID-19, PNEUMONIA, AND HYPONATREMIA. TODAY, SHE IS ALERT AND ORIENTED, LYING IN BED ON MORNING ROUNDS. SHE CONTINUES WITH COMPLAINTS OF MILD SHORTNESS OF BREATH, BUT CONTINUES TO REPORTS IMPROVEMENT IN SYMPTOMS TODAY. SHE HAS BEEN AMBULATING IN ROOM. SHE HAS BEEN SWITCHING BETWEEN BIPAP AND HEATED HIGH FLOW. WHEN AMBULATING IN ROOM, SHE DESATURATES TO THE LOW 80s AT TIMES ON NC AT 5L/MIN. ON EXAMINATION, SHE IS TACHYCARDIC WITH HR 110-120s. BILATERAL LUNGS ARE NOTED WITH DIMINISHED LUNG SOUNDS THROUGHOUT. ABDOMEN IS ROUND, SOFT, AND NON-TENDER WITH NORMAL BOWEL SOUNDS NOTED IN ALL QUADRANTS. HER VITALS THIS MORNING ARE 97.9-116-29-95%-129/59. LABS WERE OBTAINED. ABNORMAL LAB VALUES INCLUDE THE FOLLOWING: HGB 11.6, HCT 34.1, SODIUM 134, GLUCOSE 218, AST 11, ALK PHOS 118, TOTAL PROTEIN 5.9, ALBUMIN 2.4. BLOOD CULTURES ARE NEGATIVE. A CHEST XRAY WAS OB TAINED AND REVEALED: Some improvement in the bilateral infiltrates being followed. Significant infiltrate remains. SHE IS CURRENTLY RECEIVING NS AT 50ML/HR, LEVAQUIN 750MG IV DAILY, REMDESIVIR 100MG IV DAILY, SOLU-MEDROL 80MG IV TID, HUMULIN R SLIDING SCALE, ROBITUSSIN DM 10M PO QID, TUSSIONEX 5ML PO Q12H, LOPRESSOR 25MG PO BID, DUONEBS Q6H, AND PULMICORT NEBS BID. WE WILL CONTINUE WITH CURRENT PLAN OF CARE TODAY. OTHERWISE, WE WILL FOLLOW UP WITH AM LABS AND CHEST XRAY AND CONTINUE TO MONITOR. - Past Medical Family Social History Past Med/Fam/Surg Hx: No changes since H&P Allergies: Allergies No Known Drug Allergies Allergy (Verified 11/06/19 13:06) - Review of Systems ROS: No change since H&P - Vital Signs and I&O's Vital Signs: Temperature 97.8 F Pulse Rate [Apical] 121 Pulse Rate 76 Respiratory Rate 27 Blood Pressure [Left Arm] 109/63 Blood Pressure 177/77 O2 Sat by Pulse Oximetry 91 Intake and Output: Intake & Output 11/15/19 11/16/19 11/17/19 11/18/19 11:59 11:59 11:59 11:59 Intake Total 3610 / 3610 3270 / 3270 2440 / 2440 3320 / 3320 Balance 3610 / 3610 3270 / 3270 2440 / 2440 3320 / 3320 - Physical Exam Oriented: Normal Eyes: Normal Ear: Normal Nose: Normal Throat: Normal Respiratory: Generalized, Diminished Cardiovascular: Normal : Normal Auscultation: Bowel Sounds: Normal Palpation: Normal Tenderness: Normal Skin: Normal Musculoskeletal: Normal Psychiatric: Normal Mood Description: Calm Affect: Normal Speech Pattern: Clear, Appropriate - Laboratory and Diagnostics Result Diagrams: 11/18/19 05:00 11/18/19 05:00 Labs: 11/06/19 12:59 Blood Blood Culture - Final 11/06/19 12:53 Blood Blood Culture - Final Laboratory WBC 7.3 X10^3/uL (3.6-10.0) 11/18/19 05:00 RBC 4.13 X10^6/uL (3.5-5.4) 11/18/19 05:00 Hgb 12.0 g/dL (12.0-16.0) 11/18/19 05:00 Hct 35.3 % (36.0-47.0) L 11/18/19 05:00 MCV 85.6 fL (80.0-100.0) 11/18/19 05:00 MCH 29.0 pg (27.0-34.0) 11/18/19 05:00 MCHC 33.9 g/dL (33.0-35.0) 11/18/19 05:00 RDW 13.3 % (11.6-16.5) 11/18/19 05:00 Plt Count 439 X10^3/uL (150.0-450.0) 11/18/19 05:00 Plt Count Comment Adequate (ADEQUATE) 11/18/19 05:00 MPV 7.3 fL (7.4-11.0) L 11/18/19 05:00 Neut % (Auto) 83.4 % (42.0-75.0) H 11/18/19 05:00 Lymph % (Auto) 7.7 % (21.0-51.0) L 11/18/19 05:00 [place] % (Auto) 8.6 % (0.0-13.0) 11/18/19 05:00 Eos % (Auto) 0.0 % (0.9-2.9) L 11/18/19 05:00 Baso % (Auto) 0.3 % (0.2-1.0) 11/18/19 05:00 Neut # (Auto) 6.1 x10^3/uL (2.2-4.8) H 11/18/19 05:00 Lymph # (Auto) 0.6 X10^3/uL (1.3-2.9) L 11/18/19 05:00 [place] # (Auto) 0.6 x10^3/uL (0.3-0.8) 11/18/19 05:00 Eos # (Auto) 0.0 x10^3/uL (0.0-0.2) 11/18/19 05:00 Baso # (Auto) 0.0 X10^3/uL (0.0-0.1) 11/18/19 05:00 Absolute Nucleated RBC 0.1 /100WBC 11/18/19 05:00 Total Counted 100 11/18/19 05:00 Neutrophils % (Manual) 83 % (39-76) H 11/18/19 05:00 Band Neutrophils % 4 % (0-10) 11/18/19 05:00 Lymphocytes % (Manual) 7 % (13-43) L 11/18/19 05:00 Monocytes % (Manual) 6 % (4-9) 11/18/19 05:00 Giant Platelets Few 11/15/19 04:20 Plt Morphology Comment Normal (NORMAL) 11/18/19 05:00 RBC Morphology Normal (NORMAL) 11/18/19 05:00 Sample Site Rr 11/13/19 06:00 ABG pH 7.400 (7.35-7.45) 11/13/19 06:00 ABG pCO2 35.0 mmHg (35.0-45.0) 11/13/19 06:00 ABG pO2 74.0 mmHg (80.0-100.0) L 11/13/19 06:00 ABG HCO3 21.7 mmol/L (22-26) L 11/13/19 06:00 ABG O2 Saturation 95.0 % (90-100) 11/13/19 06:00 ABG Base Excess -2.6 mmol/L (-2.0-2.0) L 11/13/19 06:00 Dieter Test Pos 11/13/19 06:00 A-a Gradient 189.0 mmHg 11/13/19 06:00 FiO2 43.0 11/13/19 06:00 Blood Gas Comments Serafin well sw 11/13/19 06:00 Sodium 133 mmol/L (136-145) L 11/18/19 05:00 Corrected Sodium 137 mmol/L (136-145) 11/18/19 05:00 Potassium 3.8 mmol/L (3.5-5.1) 11/18/19 05:00 Chloride 100 mmol/L (98-107) 11/18/19 05:00 Carbon Dioxide 22.0 mmol/L (21-32) 11/18/19 05:00 BUN 16 mg/dL (7-18) 11/18/19 05:00 Creatinine 0.61 mg/dL (0.55-1.02) 11/18/19 05:00 Est GFR (MDRD) Af Amer > 60 (>60) 11/18/19 05:00 Est GFR (MDRD) Non-Af > 60 (>60) 11/18/19 05:00 Glucose 268 mg/dL (65-99) H 11/18/19 05:00 Lactic Acid 0.9 mmol/L (0.4-2.0) 11/10/19 10:10 Calcium 8.7 mg/dL (8.5-10.1) 11/18/19 05:00 Corrected Calcium 9.9 mg/dL (8.5-10.1) 11/18/19 05:00 Magnesium 1.7 mg/dL (1.7-2.9) 11/14/19 04:30 Ferritin 109 ng/mL (8-252) 11/18/19 05:00 Total Bilirubin 0.30 mg/dL (0.2-1.0) 11/18/19 05:00 AST 14 Units/L (15-37) L 11/18/19 05:00 ALT 26 Units/L (12-78) 11/18/19 05:00 Alkaline Phosphatase 124 Units/L (46-116) H 11/18/19 05:00 Lactate Dehydrogenase 283 Units/L (81-234) H 11/06/19 12:53 C-Reactive Protein < 0.50 mg/L (0-3.0) 11/18/19 05:00 Total Protein 6.0 g/dL (6.4-8.2) L 11/18/19 05:00 Albumin 2.5 g/dL (3.4-5.0) L 11/18/19 05:00 Globulin 3.5 g/dL (2.5-4.5) 11/18/19 05:00 Albumin/Globulin Ratio 0.7 Ratio (1.1-2.1) L 11/18/19 05:00 Amylase 69 Units/L (25-115) 11/06/19 12:53 Lipase 471 Units/L (73-393) H 11/06/19 12:53 Specimen Type Clean catch urine 11/06/19 18:00 Urine Color Yellow (YELLOW) 11/06/19 18:00 Urine Appearance Clear (CLEAR) 11/06/19 18:00 Urine pH 5.0 (5.0 - 8.0) 11/06/19 18:00 Ur Specific [place] 1.020 (1.000-1.030) 11/06/19 18:00 Urine Protein 2+ (NEGATIVE) 11/06/19 18:00 Urine Glucose (UA) 4+ (NEGATIVE) 11/06/19 18:00 Urine Ketones 2+ (NEGATIVE) 11/06/19 18:00 Urine Occult Blood Negative (NEGATIVE) 11/06/19 18:00 Urine Nitrite Negative (NEGATIVE) 11/06/19 18:00 Urine Bilirubin Negative (NEGATIVE) 11/06/19 18:00 Urine Urobilinogen Normal (NORMAL) 11/06/19 18:00 Ur Leukocyte Esterase Negative (NEGATIVE) 11/06/19 18:00 Urine RBC None seen /HPF (0-3) 11/06/19 18:00 Urine WBC 0-2 /HPF (0-5) 11/06/19 18:00 Ur Squamous Epith Cells Rare /HPF (NEGATIVE) 11/06/19 18:00 Amorphous Sediment Trace /HPF (NEGATIVE) 11/06/19 18:00 Urine Bacteria Negative /HPF (NEGATIVE) 11/06/19 18:00 Hyaline Casts Rare /LPF (NEGATIVE) 11/06/19 18:00 Urine Mucus Moderate /HPF (NEGATIVE) 11/06/19 18:00 Ur Culture Indicated? No/not indicated 11/06/19 18:00 Acetone, Semi-Quant Negative (NEGATIVE) 11/06/19 12:53 Influenza Type A Ag Negative-presumptive (NEGATIVE) 11/06/19 15:30 Influenza Type B Ag Negative-presumptive (NEGATIVE) 11/06/19 15:30 SARS-CoV-2 (PCR) Positive (NEGATIVE) A 11/06/19 15:30 S. pyogenes (TEM-PCR) Not detected (NOT DETECT) 11/06/19 15:30 - Plan (1) COVID-19 Status: Acute Plan: NS AT 50ML/HR, LEVAQUIN 750MG IV DAILY, ROBITUSSIN DM 10M PO QID, TUSSIONEX 5ML PO Q12H, AND DUONEBS Q6H, REMDESIVIR 100MG IV DAILY, SOLU-MEDROL 80MG IV Q8H, PULMICORT NEB [place] BID, HUMULIN R SLIDING SCALE (2) Pneumonia Status: Acute Qualifiers: Pneumonia type: due to unspecified organism Laterality: bilateral Lung location: lower lobe of lung Qualified Code(s): J18.9 - Pneumonia, unspecified organism (3) Hyponatremia Status: Acute (4) Hypotension Status: Acute Qualifiers: Hypotension type: unspecified hypotension type Qualified Code(s): I95.9 - Hypotension, unspecified (5) Diabetes Status: Chronic Qualifiers: Diabetes mellitus type: type 2 Diabetes mellitus lobsterman insulin use: unspecified custodial insulin use status Diabetes mellitus complication status: with hyperglycemia Qualified Code(s): E11.65 - Type 2 diabetes mellitus with hyperglycemia Plan: CONTINUE HOME MEDS, CONTINUE TO MONITOR (6) Depression Status: Chronic Qualifiers: Depression Type: unspecified Qualified Code(s): F32.9 - Major depressive disorder, single episode, unspecified Plan: CONTINUE HOME MEDS, CONTINUE TO MONITOR
[2019-11-18] MEDS: PULMICORT NEB TX 0.5 MG NEB SCH (09:00)
[2019-11-18] MEDS ORDERED: LANOXIN or DIGITEK PO SCH (09:00)
[2019-11-18] MEDS ORDERED: GLUCOPHAGE ONE (09:05)
[2019-11-18] MEDS: GLUCOPHAGE PO SCH (09:12)
[2019-11-18] MEDS: PATIENT'S HOME MEDICATION (Empagliflozin [Jardiance] 25 MG) PO SCH (09:12)
[2019-11-18] MEDS: LOPRESSOR TAB 25 MG PO SCH (09:13)
[2019-11-18] MEDS: HEMOCYTE-PLUS PO SCH (09:13)
[2019-11-18] MEDS: ROBITUSSIN DM PO SCH (09:14)
[2019-11-18] MEDS: NexIUM PO SCH (09:14)
[2019-11-18] MEDS: LOVENOX INJ 40 MG SYR SC SCH (09:14)
[2019-11-18] MEDS: LEVAQUIN PREMIX IV 750 MG 750 MG/150 ML BAG IV SCH (09:15)
[2019-11-18] MEDS: VSL#3 PO SCH (09:15)
[2019-11-18] MEDS: VORTIOXETINE 5 MG PO SCH (09:15)
[2019-11-18] MEDS: REMDESIVIR (INVESTIGATIONAL DRUG GS-5734) 100 MG in NS 250 ML IV 250 ML IV SCH (11:00)
[2019-11-18 12:41] VITALS: BP 163/76
== END 2019-11-18 12:45 | disposition home or self-care (01) | DRG 177 ==
LOC: ICU 12:40 → ER 12:40 → OBSVTOIN 16:30 → ICU 16:58
PROVIDERS: ADMIT Internal Medicine; ATTEND Internal Medicine
DX: K76.0 Fatty (change of) liver, not elsewhere classified; J12.89 Other viral pneumonia; R55 Syncope and collapse; E87.1 Hypo-osmolality and hyponatremia; F32.89 Other specified depressive episodes; K21.9 Gastro-esophageal reflux disease without esophagitis; R51 Headache; E11.65 Type 2 diabetes mellitus with hyperglycemia; E78.2 Mixed hyperlipidemia; E03.8 Other specified hypothyroidism; I95.89 Other hypotension; R06.02 Shortness of breath; U07.1 COVID-19; B37.89 Other sites of candidiasis; R60.0 Localized edema; E86.0 Dehydration; R19.7 Diarrhea, unspecified
CPT/HCPCS: 36415; 36600; 71010; 71045; 71275; 74176; 80053; 81001; 82009; 82150; 82728; 82803; 82947; 83605; 83615; 83690; 83735; 84132; 85025; 86140; 87040; 87400; 87635; 87651; 87804; 94640; 94660; 96365; 96367; 96374; 96375; 99283; A4222; A4618; A7030; J0131; J1200; J1650; J1815; J1885; J1940; J1956; J2405; J2920; J3475; J3490; J7030; J7050; J7620; J7626; S0119; S0181

== ENCOUNTER 2024-06-06 09:16 | Observation (INO) ==
--- NOTE | 2024-06-06 09:32 | DR.DIZZY ---
HPI Time seen Time Seen by Provider: 06/06/24 09:31 HPI Comment HPI Comment: History as below. Complaint Chief Complaint Doctor Comments: Patient is 54yr 0ld female in ER for evaluation of possible stroke. Patient reports headache and AMS at work this morning. Her coworkers said she did not make sense when she talked. Her speech was slurred. Patient said her vision was blurry and loss vision when she was at work. Her symptoms are resolving. Patient have history of hypertension and diabetes. COVID-19 Coronavirus risk:travel/contact w/high risk person: No Has patient experienced Coronavirus symptoms: No Nurses Notes Reviewed Nurses Notes Review: Yes Context Stroke Symptoms: Acute confusion and Slurring PMH PMH Past Medical History: Diabetes and Hypertension Past Surgical History: Yes Surgical History: Cholecystectomy Family History Family Medical History: Diabetes Mellitus, Cancer, Coronary Artery Disease and Hypertension Social History Do you use any recreational Drugs:: No Travel Risk Coronavirus risk:travel/contact w/high risk person: No Has patient experienced Coronavirus symptoms: No ROS Review of Systems Constitutional: No Symptoms Reported; negative Fever Eyes: Blurred Vision and Other (Brief loss of vision.) ENTM: No Symptoms Reported Respiratoy: No Symptoms Reported; negative Moist Cough, Short of Breath or Whee zing Cardiovascular: No Symptoms Reported; negative Chest Pain Gastrointestinal/Abdominal: No Symptoms Reported; negative Abdominal Pain, Diarrhea, Nausea or Vomiting Genitourinary: No Symptoms Reported; negative Dysuria Neurological: Headache, Speech Problem and Other (confused.) Musculoskeletal: No Symptoms Reported; negative Muscle Pain Integumentary: No Symptoms Reported; negative Rash Hematologic/Lymphatic: No Symptoms Reported; negative Easy Bleeding or Easy Bruising Endocrine: No Symptoms Reported; negative Increased Thirst or Increased Urine Psychiatric: No Symptoms Reported PE Vital Signs Vitals: Vital Signs Temperature 97.8 F Pulse Rate 102 Pulse Rate 100 Pulse Rate 103 Pulse Rate 104 Pulse Rate 103 Pulse Rate 100 Pulse Rate 98 Pulse Rate 98 Pulse Rate 100 Pulse Rate 98 Pulse Rate 99 Pulse Rate 94 Pulse Rate 91 Pulse Rate 91 Pulse Rate 89 Pulse Rate 93 Pulse Rate 97 Pulse Rate 107 Pulse Rate 112 Pulse Rate 117 Pulse Rate 114 Pulse Rate 135 Pulse Rate 118 Respiratory Rate 20 Respiratory Rate 20 Respiratory Rate 20 Respiratory Rate 20 Respiratory Rate 23 Respiratory Rate 20 Respiratory Rate 20 Respiratory Rate 22 Respiratory Rate 22 Respiratory Rate 22 Respiratory Rate 20 Blood Pressure 144/77 Blood Pressure 106/56 Blood Pressure 109/61 Blood Pressure 116/72 Blood Pressure 119/66 Blood Pressure 119/71 Blood Pressure 122/66 Blood Pressure 124/74 Blood Pressure 120/74 Blood Pressure 114/72 Blood Pressure 151/70 O2 Sat by Pulse Oximetry 94 O2 Sat by Pulse Oximetry 94 O2 Sat by Pulse Oximetry 97 O2 Sat by Pulse Oximetry 94 O2 Sat by Pulse Oximetry 94 O2 Sat by Pulse Oximetry 96 O2 Sat by Pulse Oximetry 95 O2 Sat by Pulse Oximetry 96 O2 Sat by Pulse Oximetry 100 O2 Sat by Pulse Oximetry 97 O2 Sat by Pulse Oximetry 98 O2 Sat by Pulse Oximetry 97 O2 Sat by Pulse Oximetry 98 O2 Sat by Pulse Oximetry 98 O2 Sat by Pulse Oximetry 98 O2 Sat by Pulse Oximetry 98 O2 Sat by Pulse Oximetry 98 O2 Sat by Pulse Oximetry 97 O2 Sat by Pulse Oximetry 92 O2 Sat by Pulse Oximetry 96 O2 Sat by Pulse Oximetry 97 General Limitations: Altered Mental Status General Appearance: Alert and In No Apparent Distress Head Head Exam: Normal Inspection and Atraumatic Eyes Eye exam: Normal Appearance; negative Scleral Icterus or Conjunctival Injection Pupils: Regular, Round: Bilateral and Reactive: Bilateral Sclera/Conjunctival: Normal Inspection: Bilateral ENT ENT Exam: Normal Exam, Normal Oropharynx, Normal External Ear Exam and TM's Normal Bilaterally Neck Neck Exam: Normal Inspection and Trachea Midline; negative Tenderness Respiratory Respiratory Exam: Normal Lung Sounds Bilat; negative Accessory Muscle Use, Chest Wall Tenderness or Respiratory Distress Respiratory Exam: Bilateral: Clear to Auscultation Cardiovascular Cardiovascular Exam: Regular Rate, Normal Rhythm and Normal Heart Sounds; negative Systolic Murmur or Diastolic Murmur Abdominal Exam Abdominal Exam: Normal Inspection, Normal Bowel Sounds and Soft; negative Tenderness Rectal Rectal Exam: Deferred Extremeties Extremities Exam: Normal Inspection and Normal Capillary Refill Back Back Exam: Normal Inspection; negative (R) CVA Tenderness or (L) CVA Tenderness Neurologic Neurological Exam: Alert, Oriented X3, CN II-XII Intact and Reflexes Normal; negative Motor Sensory Deficit Patient Oriented To: Person, Place and Time Speech: Fluid Speech and Other Cranial Nerve Exam: EOM Function (II, III, IV, ): Normal, Facial Sensation (V): Normal, Facial Palsy (VII): Normal, Gag reflex (XI): Normal, Spinal Accessory Function (XI): Normal and Tongue Deviation: Normal Motor Strength - LUE: 5/5 Motor Strength - RUE: 5/5 Motor Strength - LLE: 5/5 Motor Strength - RLE: 5/5 Upper Motor Neuron Exam: Babinski Sign: Normal Psychiatric Psychiatric Exam: Normal Affect and Normal Mood Skin Skin Exam: Warm and Intact MDM Differential Diagnosis Differential Diagnosis: CVA, TIA and Other (AMAUFOSIS FUGAX) COURSE Treatment Treatment: See orders done while patient was in ER. Tele neurology consult obtained upon arrival. Patient admitted to hospital for further management. Consultation Consultation Comments: Tele neurology consult. See respond on record. Discussed patient with Dr. Mcleod. She will admit patient. Education/Counseling Education/Counseling: Patient and Family Educated On: Diagnosis ROR Labs Reviewed Laboratory Results Reviewed?: Yes 06/08/24 05:28 06/08/24 05:28 Laboratory: WBC 7.0 X10^3/uL (3.6-10.0) 06/06/24 09:25 RBC 4.83 X10^6/uL (3.5-5.4) 06/06/24 09: Hgb 11.7 g/dL (12.0-16.0) L 06/06/24 09:25 Hct 35.6 % (36.0-47.0) L 06/06/24 09: MCV 73.6 fL (80.0-100.0) L 06/06/24 09:25 MCH 24.2 pg (27.0-34.0) L 06/06/24 09:25 MCHC 32.9 g/dL (33.0-35.0) L 06/06/24 09:25 RDW 16.6 % (11.6-16.5) H 06/06/24 09:25 Plt Count 206 X10^3/uL (150.0-450.0) 06/06/24 09:25 Plt Count Comment Adequate (ADEQUATE) 06/06/24 09: MPV 8.4 fL (7.4-11.0) 06/06/24 09:25 Neut % (Auto) 65.0 % (42.0-75.0) 06/06/24 09:25 Lymph % (Auto) 16.7 % (21.0-51.0) L 06/06/24 09:25 [place] % (Auto) 16.6 % (0.0-13.0) H 06/06/24 09:25 Eos % (Auto) 1.1 % (0.9-2.9) 06/06/24 09:25 Baso % (Auto) 0.6 % (0.2-1.0) 06/06/24 09:25 Neut # (Auto) 3.9 x10^3/uL (2.2-4.8) 06/06/24 09:25 Lymph # (Auto) 1.0 X10^3/uL (1.3-2.9) L 06/06/24 09:25 [place] # (Auto) 1.0 x10^3/uL (0.3-0.8) H 06/06/24 09:25 Eos # (Auto) 0.1 x10^3/uL (0.0-0.2) 06/06/24 09:25 Baso # (Auto) 0.0 X10^3/uL (0.0-0.1) 06/06/24 09:25 Absolute Nucleated RBC 0.2 /100WBC 06/06/24 09:25 Total Counted 100 06/06/24 09:25 Neutrophils % (Manual) 72 % (39-76) 06/06/24 09:25 Band Neutrophils % 4 % (0-10) 06/06/24 09:25 Lymphocytes % (Manual) 14 % (13-43) 06/06/24 09:25 Monocytes % (Manual) 10 % (4-9) H 06/06/24 09:25 Plt Morphology Comment Normal (NORMAL) 06/06/24 09:25 RBC Morphology Abnormal (NORMAL) A 06/06/24 09:25 Hypochromasia Slight A 06/06/24 09:25 Microcytosis Slight A 06/06/24 09:25 Stomatocytes Slight A 06/06/24 09:25 PT 13.2 SECONDS (11.8-14.3) 06/06/24 09:25 INR Target Range - 06/06/24: INR 1.02 (0.8-1.3) 06/06/24 09:25 APTT 25.8 SECONDS (22.9-36.5) 06/06/24 09:25 PTT Comment - 06/06/24 09:25 Fibrinogen 389 mg/dL (239-489) 06/06/24 09:25 Sodium 133 mmol/L (136-145) L 06/06/24 09:25 Corrected Sodium 138 mmol/L (136-145) 06/06/24 09:25 Potassium 3.9 mmol/L (3.5-5.1) 06/06/24 09:25 Chloride 95 mmol/L (98-107) L 06/06/24 09:25 Carbon Dioxide 26.8 mmol/L (21-32) 06/06/24 09:25 BUN 11 mg/dL (7-18) 06/06/24 09:25 Creatinine 0.82 mg/dL (0.55-1.02) 06/06/24 09:25 Est GFR (MDRD) Af Amer > 60 (>60) 06/06/24 09:25 Est GFR (MDRD) Non-Af > 60 (>60) 06/06/24 09:25 Glucose 328 mg/dL (65-99) H 06/06/24 09:25 POC Glucose (mg/dL) 272 mg/dL (65-99) H 06/06/24 09:22 Hemoglobin A1c 8.1 % 06/06/24 09:25 Calcium 9.1 mg/dL (8.5-10.1) 06/06/24 09:25 Corrected Calcium TNP 06/06/24 09:25 Total Bilirubin 0.40 mg/dL (0.2-1.0) 06/06/24 09:25 AST 29 Units/L (15-37) 06/06/24 09:25 ALT 36 Units/L (12-78) 06/06/24 09:25 Alkaline Phosphatase 120 Units/L (46-116) H 06/06/24 09:25 Creatine Kinase 59 Units/L (26-192) 06/06/24 09:25 Troponin I High Sens < 4.0 ng/L (4.0-60.0) L 06/06/24 09:25 B-Natriuretic Peptide < 5.0 pg/mL (0-79) 06/06/24 09:25 B-Natriuretic Peptide Cancelled 06/06/24 09:25 Total Protein 8.1 g/dL (6.4-8.2) 06/06/24 09:25 Albumin 3.7 g/dL (3.4-5.0) 06/06/24 09:25 Globulin 4.4 g/dL (2.5-4.5) 06/06/24 09:25 Albumin/Globulin Ratio 0.8 Ratio (1.1-2.1) L 06/06/24 09:25 Triglycerides 101 mg/dL (0-150) 06/06/24 09:25 Cholesterol 220 mg/dL (0-200) H 06/06/24 09:25 LDL Cholesterol, Calc 117 mg/dL (0-100) H 06/06/24 09:25 HDL Cholesterol 83 mg/dL (40-60) H 06/06/24 09:25 Cholesterol/HDL Ratio 2.7 (0.0-5.0) 06/06/24 09:25 Specimen Type Clean catch urine 06/06/24 12:16 Urine Color Yellow (YELLOW) 06/06/24 12:16 Urine Appearance Hazy (CLEAR) 06/06/24 12:16 Urine pH 6.0 (5.0 - 8.0) 06/06/24 12:16 Ur Specific [place] 1.015 (1.000-1.030) 06/06/24 12:16 Urine Protein 3+ (NEGATIVE) 06/06/24 12:16 Urine Glucose (UA) 4+ (NEGATIVE) 06/06/24 12:16 Urine Ketones 1+ (NEGATIVE) 06/06/24 12:16 Urine Blood 1+ (NEGATIVE) 06/06/24 12:16 Urine Nitrite Negative (NEGATIVE) 06/06/24 12:16 Urine Bilirubin Negative (NEGATIVE) 06/06/24 12:16 Urine Urobilinogen Normal (NORMAL) 06/06/24 12:16 Ur Leukocyte Esterase Negative (NEGATIVE) 06/06/24 12:16 Urine RBC 0-2 /HPF (0-3) 06/06/24 12:16 Urine WBC 0-2 /HPF (0-5) 06/06/24 12:16 Ur Squamous Epith Cells Few /HPF (NEGATIVE) 06/06/24 12:16 Urine Bacteria Negative /HPF (NEGATIVE) 06/06/24 12:16 Urine Mucus Rare /HPF (NEGATIVE) 06/06/24 12:16 Ur Culture Indicated? No/not indicated 06/06/24 12:16 SARS-CoV-2 (PCR) Negative (NEGATIVE) 06/06/24 10:32 Influenza Type A (PCR) Positive (NEGATIVE) A 06/06/24 10:32 Influenza Type B (PCR) Negative (NEGATIVE) 06/06/24 10:32 RSV (PCR) Negative (NEGATIVE) 06/06/24 10:32 XRAY XRAY Interpreted by: Radiologist (Reports noted.) EKG Rate: 127 [place]: Normal Rhythm: ST Block: None Hypertrophy: None ST: Inf (Infarct, age undetermined.) and Ant (lnfarct, age undetermined.) Opioid Opioid Risk Tool Age ([place] box if 16-45): No History of Preadolescent Sexual Abuse: No Total: 0 Total Score Risk Category: Low Risk Copyright: [facility] predicting aberrant behaviors Discharge Plan Diagnosis Discharge Problem: Brain TIA, Amaurosis fugax, Influenza A Headache Qualifiers: Headache type: unspecified Headache chronicity pattern: acute headache Intractability: intractable Qualified Code(s): R51.9 - Headache, unspecified Discharge Plan Patient Disposition: ADMITTED INPATIENT Condition: Stable Prescription drug monitoring program results: PDMP reviewed and no concerns identified Orders to Discharge Patient Discharge Orders: Discharge (Routine); Ordered 06/08/24 Ordered By: Abbi Mcleod
[2024-06-06 09:34] VITALS: BMI 28.0
[2024-06-06 09:46] LABS: EOSINOPHILS # (AUTO) 0.1 x10^3/uL (0.0-0.2); NEUTROPHILS # (AUTO) 3.9 x10^3/uL (2.2-4.8)
[2024-06-06 09:47] LABS: BASOPHILS % (AUTO) 0.6 % (0.2-1.0); EOSINOPHILS % (AUTO) 1.1 % (0.9-2.9); HEMATOCRIT 35.6 % (36.0-47.0); HEMOGLOBIN 11.7 g/dL (12.0-16.0); LYMPHOCYTES % (AUTO) 16.7 % (21.0-51.0); MEAN CORPUSCULAR HEMOGLOBIN 24.2 pg (27.0-34.0); MEAN CORPUSCULAR HGB CONC 32.9 g/dL (33.0-35.0); MEAN CORPUSCULAR VOLUME 73.6 fL (80.0-100.0); MEAN PLATELET VOLUME 8.4 fL (7.4-11.0); MONOCYTES % (AUTO) 16.6 % (0.0-13.0); PLATELET COUNT 206 X10^3/uL (150.0-450.0); RED BLOOD COUNT 4.83 X10^6/uL (3.5-5.4); RED CELL DISTRIBUTION WIDTH 16.6 % (11.6-16.5)
[2024-06-06 09:52] LABS: INR 1.02 (0.8-1.3)
[2024-06-06 09:58] LABS: ALANINE AMINOTRANSFERASE 36 Units/L (12-78); ALBUMIN 3.7 g/dL (3.4-5.0); ALKALINE PHOSPHATASE 120 Units/L (46-116); ASPARTATE AMINO TRANSFERASE 29 Units/L (15-37); BLOOD UREA NITROGEN 11 mg/dL (7-18); CALCIUM 9.1 mg/dL (8.5-10.1); CARBON DIOXIDE 26.8 mmol/L (21-32); CHLORIDE 95 mmol/L (98-107); COR NA(FOR HYPERGLY) 138 mmol/L (136-145); CREATINE KINASE 59 Units/L (26-192); CREATININE 0.82 mg/dL (0.55-1.02); GLUCOSE 328 mg/dL (65-99); POTASSIUM 3.9 mmol/L (3.5-5.1); SODIUM 133 mmol/L (136-145); TOTAL PROTEIN 8.1 g/dL (6.4-8.2); eGFR NON BLACK RACES > 60 (>60)
[2024-06-06 10:10] LABS: BAND NEUTROPHILS % 4 % (0-10); PLATELET MORPHOLOGY COMMENT NORMAL (NORMAL); STOMATOCYTES SLIGHT
[2024-06-06 10:11] LABS: HYPOCHROMASIA SLIGHT; MICROCYTOSIS SLIGHT
--- NOTE | 2024-06-06 10:17 | TELESTROKE ---
[facility] Consult Date of Consult Date of Exam: 06/06/24 Time of Arrival to the ED: 09:16 Allergies Allergies Allergy/AdvReac Type Severity Reaction Status Date / Time No Known Drug Allergies Allergy Verified 06/06/24 09:34 Vital Signs Vital Signs: Temp Pulse Resp BP Pulse Ox O2 Del Method 06/06/24 09:31 135 H 96 06/06/24 09:30 114/72 06/06/24 09:27 97.8 F 118 H 20 151/70 97 Room Air History of Present Illness History of Present Illness: [facility] Tele[facility]urology Consult Services Patient Name:Neida Serrato Date of :1970 Identification Number: Date of Service:06/06/2024 09:43:31 Diagnosis:G45.9 - Transient cerebral ischemic attack, unspecified Impression: The patient is a 54 year old woman with a history of hypertension, diabetes, who presents with transient blurry vision and speech disturbance, concerning for TIA. Recommend evaluation of vascular risk factors with MRI brain, MRA head/neck, TTE, lipid panel, HgbA1C. Tolerate permissive hypertension. ASA 81 mg. Our recommendations are outlined below. Recommendations: Stroke/Telemetry Floor Neuro Checks Bedside Swallow Eval DVT Prophylaxis IV Fluids, Normal Saline Head of Bed 30 Degrees Euglycemia and Avoid Hyperthermia (PRN Acetaminophen) Initiate or continue Aspirin 81 MG daily Antihypertensives PRN if Blood pressure is greater than 220/120 or there is a concern for End organ damage/contraindications for permissive HTN. If blood pressure is greater than 220/120 give labetalol PO or IV or Vasotec IV with a goal of 15% reduction in BP during the first 24 hours. Sign Out: Discussed with Emergency Department Provider Advanced Imaging: Advanced Imaging Deferred because: Non-disabling symptoms as verified by the patient; no cortical signs so not consistent with LVO Metrics: Last Known Well: 06/06/2024 07:30:00 Dispatch Time: 06/06/2024 09:43:31 Arrival Time: 06/06/2024 09:16:00 Initial Response Time: 06/06/2024 09:51:43Symptoms: blurry vision, speech change . Initial patient interaction: 06/06/2024 09:59:15 NIHSS Assessment Completed: 06/06/2024 10:05:18Patient is not a candidate for Thrombolytic. Thrombolytic Medical Decision: 06/06/2024 10:05:19Patient was not deemed candidate for Thrombolytic because of following reasons: Resolved symptoms . I personally Reviewed the CT Head and it Showed no acute abnormality Primary Provider Notified of Diagnostic Impression and Management Plan on: 06/06/2024 10:05:34 History of Present Illness:Patient is a 54 year old Female. Patient was brought by private transportation with symptoms of blurry vision, speech change . Patient has been having headache since yesterday. Today at work at 7:30 AM she developed blurry vision. Reports bilateral eye involvement affecting entire visual field. Reports slurred speech and coworkers not able to understand her. Reports dizziness. Symptoms lasted 30 minutes before resolving. No prior similar symptoms. In ER says she is back to baseline except for headache. Past Medical History: Hypertension Diabetes Mellitus There is no history of Hyperlipidemia Medications: No Anticoagulant use No Antiplatelet use Reviewed EMR for current medications Allergies: NKDA Social History: Smoking: No Family History: There is no family history of premature cerebrovascular disease pertinent to this consultation ROS : 14 Points Review of Systems was performed and was negative except mentioned in HPI. Past Surgical History: There Is No Surgical History Contributory To Todays Visit Examination: BP(109/63),Pulse(118), 1A: Level of Consciousness - Alert; keenly responsive+ 0 1B: Ask Month and Age - Both Questions Right+ 0 1C: Blink Eyes & Squeeze Hands - Performs Both Tasks+ 0 2: Test Horizontal Extraocular Movements - Normal+ 0 3: Test Visual Morrissey - No Visual Loss+ 0 4: Test Facial Palsy (Use Grimace if Obtunded) - Minor paralysis (flat nasolabial fold, smile asymmetry)+ 1 5A: Test Left Arm Motor Drift - No Drift for 10 Seconds+ 0 5B: Test Right Arm Motor Drift - No Drift for 10 Seconds+ 0 6A: Test Left Leg Motor Drift - No Drift for 5 Seconds+ 0 6B: Test Right Leg Motor Drift - No Drift for 5 Seconds+ 0 7: Test Limb Ataxia (FNF/Heel-Jimenez) - No Ataxia+ 0 8: Test Sensation - Normal; No sensory loss+ 0 9: Test Language/Aphasia - Normal; No aphasia+ 0 10: Test Dysarthria - Normal+ 0 11: Test Extinction/Inattention - No abnormality+ 0 NIHSS Score:1 Pre-Morbid Modified Irwin Scale:0 Points = No symptoms at all Spoke with :ED MD This consult was conducted in real time using interactive audio and video technology. Patient was informed of the technology being used for this visit and agreed to proceed. Patient located in hospital and provider located at home/office setting. Patient is being evaluated for possible acute neurologic impairment and high probability of imminent or life-threatening deterioration. I spent total of 30 minutes providing care to this patient, including time for face to face visit via telemedicine, review of medical records, imaging studies and discussion of findings with providers, the patient and/or family. Dr Hailey Boucher [facility] For Inpatient follow-up with [facility] physician please call [facility] at . As we are not an outpatient service for any post hospital discharge needs please contact the hospital for assistance. If you have any questions for the [facility] physicians or need to reconsult for clinical or diagnostic changes please contact us via [facility] at . Medical Decision Making 06/06/24 09:25 06/06/24 09:25 Labs: Laboratory Results - last 24 hr 06/06/24 06/06/24 09:22 09:25 WBC 7.0 RBC 4.83 Hgb 11.7 L Hct 35.6 L MCV 73.6 L MCH 24.2 L MCHC 32.9 L RDW 16.6 H Plt Count 206 MPV 8.4 Neut % (Auto) 65.0 Lymph % (Auto) 16.7 L Grant % (Auto) 16.6 H Eos % (Auto) 1.1 Baso % (Auto) 0.6 Neut # (Auto) 3.9 Lymph # (Auto) 1.0 L Grant # (Auto) 1.0 H Eos # (Auto) 0.1 Baso # (Auto) 0.0 Absolute Nucleated RBC 0.2 PT 13.2 INR Target Range - INR 1.02 PTT Comment - Sodium 133 L Corrected Sodium 138 Potassium 3.9 Chloride 95 L Carbon Dioxide 26.8 BUN 11 Creatinine 0.82 Est GFR (MDRD) Af Amer > 60 Est GFR (MDRD) Non-Af > 60 Glucose 328 H POC Glucose (mg/dL) 272 H Calcium 9.1 Corrected Calcium TNP Total Bilirubin 0.40 AST 29 ALT 36 Alkaline Phosphatase 120 H Creatine Kinase 59 Troponin I High Sens < 4.0 L Total Protein 8.1 Albumin 3.7 Globulin 4.4 Albumin/Globulin Ratio 0.8 L
--- NOTE | 2024-06-06 10:20 | RAD ---
EXAM: CHEST, 1 VIEW HISTORY: headache, blurred vision; COMPARISON: No relevant prior studies were available for comparison at the time of interpretation. TECHNIQUE: CHEST, 1 VIEW FINDINGS: Chest: Lines and tubes: Cardiac leads overlie the chest. Mediastinum: Borderline cardiomegaly. Pulmonary vessels: There is pulmonary vascular congestion. Lung burks: No suspicious airspace opacity. Pleura: No effusion. No pneumothorax. Bones and soft tissues: No acute osseous or soft tissue abnormality. IMPRESSION: 1. Findings suggest heart failure THIS IS AN ELECTRONICALLY VERIFIED FINAL REPORT 06/06/2024 10:09 AM - Electronically signed by Zeus Liang MD
--- NOTE | 2024-06-06 10:21 | CT ---
EXAM: BRAIN W/O CON HISTORY: headache, blurred vision this morning. pt stated her vision is fine now; COMPARISON: None available. TECHNIQUE: Multiple axial images of the brain were obtained from the skull base to the vertex without administra tion of IV contrast. Dose reduction techniques including Automated Exposure Control (AEC) and adjust ment of mA and kV were utilized. FINDINGS: No acute intraparenchymal hemorrhage or mass can be identified. No extra-axial fluid collections are seen. No alteration in the attenuation of the brain parenchyma can be identified to suggest acute or subacute ischemic change. The ventricular system is symmetric and nondilated. The extracranial struct ures appear unremarkable. IMPRESSION: 1. No acute intracranial process can be identified. THIS IS AN ELECTRONICALLY VERIFIED FINAL REPORT 06/06/2024 10:18 AM - Electronically signed by Gualberto Naidu MD
[2024-06-06] MEDS: TORADOL 30 MG VIAL IVP ONE (10:25)
[2024-06-06 10:27] LABS: CHOL/HDL RATIO 2.7 (0.0-5.0)
[2024-06-06 10:48] LABS: HEMOGLOBIN A1C 8.1 %
--- NOTE | 2024-06-06 11:12 | EKG ---
Test Reason : tachycardia Blood Pressure : */* mmHG Vent. Rate : 121 BPM Atrial Rate : 121 BPM P-R Int : 152 ms QRS Dur : 78 ms QT Int : 312 ms P-R-T Axes : 51 60 61 degrees QTc Int : 443 ms Sinus tachycardia Cannot rule out Anterior infarct , age undetermined Abnormal ECG No previous ECGs available Confirmed by Bon Costa MD ([id number]) on 06/07/2024 7:48:48 AM Referred By: Confirmed By: Bon Costa MD
[2024-06-06 12:23] LABS: BILIRUBIN,URINE NEGATIVE (NEGATIVE); BLOOD/HEMOGLOBIN,URINE 1+ (NEGATIVE); GLUCOSE, URINE 4+ (NEGATIVE); KETONES,URINE 1+ (NEGATIVE); LEUKOCYTE ESTERASE ,URINE NEGATIVE (NEGATIVE); NITRITES,URINE NEGATIVE (NEGATIVE); PROTEIN,URINE 3+ (NEGATIVE); UROBILINOGEN,URINE NORMAL (NORMAL)
[2024-06-06] MEDS: MORPHINE SULFATE INJ 2 MG INJ IVP ONE (12:45)
[2024-06-06] MEDS: ZOFRAN INJ 4 MG VIAL IVP ONE (12:45)
[2024-06-06 12:51] LABS: APPEARANCE,URINE HAZY (CLEAR); BACTERIA,URINE NEGATIVE /HPF (NEGATIVE); COLOR,URINE YELLOW (YELLOW); RBC,URINE 0-2 /HPF (0-3); SQUAMOUS EPITHELIAL CELL,UR FEW /HPF (NEGATIVE)
--- NOTE | 2024-06-06 14:50 | MRI ---
EXAM: MAGNETIC RESONANCE ANGIOGRAPHY OF THE BRAIN WITH 3-D REFORMATIONS HISTORY: TIA/ PT STATES HEADACHE; COMPARISON: Noncontrast CT brain 06/06/2024. TECHNIQUE: 3-D [id number] magnetic resonance angiography of the cerebral vasculature was performed with mult iplanar reformatted maximum intensity projections. FINDINGS: There is preserved flow related enhancement in the anterior and posterior circulation without evidenc e of occlusion, flow-limiting stenosis, aneurysm, or malformation. IMPRESSION: MRA of the brain is within normal limits. THIS IS AN ELECTRONICALLY VERIFIED FINAL REPORT 06/06/2024 2:46 PM - Electronically signed by Ofelia Rowell MD
[2024-06-06] MEDS ORDERED: ZOFRAN INJ 4 MG VIAL IVP PRN (17:22)
[2024-06-06] MEDS ORDERED: MORPHINE SULFATE INJ 2 MG INJ IVP PRN (17:22)
[2024-06-06] MEDS: TYLENOL 325 MG TAB PO PRN (17:41)
[2024-06-06] MEDS: ROBITUSSIN DM PO PRN (19:07)
[2024-06-07 06:14] LABS: BASOPHILS % (AUTO) 0.5 % (0.2-1.0); EOSINOPHILS # (AUTO) 0.1 x10^3/uL (0.0-0.2); HEMOGLOBIN 11.4 g/dL (12.0-16.0); LYMPHOCYTES # (AUTO) 0.7 X10^3/uL (1.3-2.9); LYMPHOCYTES % (AUTO) 26.4 % (21.0-51.0); MEAN CORPUSCULAR HEMOGLOBIN 23.8 pg (27.0-34.0); MEAN CORPUSCULAR HGB CONC 32.7 g/dL (33.0-35.0); MEAN CORPUSCULAR VOLUME 72.9 fL (80.0-100.0); MEAN PLATELET VOLUME 7.9 fL (7.4-11.0); MONOCYTES # (AUTO) 0.4 x10^3/uL (0.3-0.8); MONOCYTES % (AUTO) 15.4 % (0.0-13.0); NEUTROPHILS # (AUTO) 1.5 x10^3/uL (2.2-4.8); NEUTROPHILS % (AUTO) 55.7 % (42.0-75.0); PLATELET COUNT 227 X10^3/uL (150.0-450.0); RED CELL DISTRIBUTION WIDTH 16.7 % (11.6-16.5); WHITE BLOOD COUNT 2.7 X10^3/uL (3.6-10.0)
[2024-06-07 06:25] LABS: ALANINE AMINOTRANSFERASE 35 Units/L (12-78); ALBUMIN 3.4 g/dL (3.4-5.0); ALKALINE PHOSPHATASE 113 Units/L (46-116); ASPARTATE AMINO TRANSFERASE 24 Units/L (15-37); BLOOD UREA NITROGEN 11 mg/dL (7-18); CALCIUM 8.7 mg/dL (8.5-10.1); CARBON DIOXIDE 26.1 mmol/L (21-32); CHLORIDE 98 mmol/L (98-107); COR NA(FOR HYPERGLY) 137 mmol/L (136-145); CREATININE 0.67 mg/dL (0.55-1.02); GLUCOSE 237 mg/dL (65-99); SODIUM 134 mmol/L (136-145); TOTAL PROTEIN 7.5 g/dL (6.4-8.2); eGFR NON BLACK RACES > 60 (>60)
[2024-06-07 06:40] LABS: ANISOCYTOSIS SLIGHT; PLATELET MORPHOLOGY COMMENT NORMAL (NORMAL)
[2024-06-07 06:41] LABS: HYPOCHROMASIA 1+; MICROCYTOSIS SLIGHT
[2024-06-07] MEDS ORDERED: GLUCOPHAGE ONE (10:21)
[2024-06-07] MEDS: LOPRESSOR TAB 50 MG PO SCH (10:25)
[2024-06-07] MEDS: CYMBALTA PO SCH (10:26)
[2024-06-07] MEDS: GLUCOPHAGE PO SCH (10:26)
[2024-06-07] MEDS: NexIUM PO SCH (10:26)
[2024-06-07] MEDS: OXYBUTYNIN CHLORIDE ER PO SCH (10:26)
[2024-06-07] MEDS: TAMIFLU PO SCH (11:44)
[2024-06-07] MEDS: NovoLIN R (or HumuLIN R) SUBCUT PRN (12:44)
[2024-06-07] MEDS: LIPITOR TAB 40 MG PO SCH (20:40)
[2024-06-07] MEDS: SNACK - Diabetic Appropriate PO SCH (20:46)
[2024-06-08] MEDS: GLUCOPHAGE ONE ×2 (05:01→09:40)
[2024-06-08 06:19] LABS: BASOPHILS % (AUTO) 0.4 % (0.2-1.0); EOSINOPHILS # (AUTO) 0.1 x10^3/uL (0.0-0.2); EOSINOPHILS % (AUTO) 1.9 % (0.9-2.9); HEMATOCRIT 34.2 % (36.0-47.0); HEMOGLOBIN 11.3 g/dL (12.0-16.0); LYMPHOCYTES # (AUTO) 1.2 X10^3/uL (1.3-2.9); LYMPHOCYTES % (AUTO) 40.1 % (21.0-51.0); MEAN CORPUSCULAR HEMOGLOBIN 24.1 pg (27.0-34.0); MEAN CORPUSCULAR VOLUME 73.1 fL (80.0-100.0); MEAN PLATELET VOLUME 8.1 fL (7.4-11.0); MONOCYTES # (AUTO) 0.6 x10^3/uL (0.3-0.8); MONOCYTES % (AUTO) 19.4 % (0.0-13.0); NEUTROPHILS # (AUTO) 1.1 x10^3/uL (2.2-4.8); NEUTROPHILS % (AUTO) 38.2 % (42.0-75.0); PLATELET COUNT 222 X10^3/uL (150.0-450.0); RED BLOOD COUNT 4.68 X10^6/uL (3.5-5.4); RED CELL DISTRIBUTION WIDTH 16.7 % (11.6-16.5); WHITE BLOOD COUNT 2.9 X10^3/uL (3.6-10.0)
[2024-06-08 06:31] LABS: ALANINE AMINOTRANSFERASE 32 Units/L (12-78); ALBUMIN 3.1 g/dL (3.4-5.0); ALKALINE PHOSPHATASE 116 Units/L (46-116); ASPARTATE AMINO TRANSFERASE 26 Units/L (15-37); BLOOD UREA NITROGEN 9 mg/dL (7-18); CALCIUM 8.4 mg/dL (8.5-10.1); CARBON DIOXIDE 24.9 mmol/L (21-32); CHLORIDE 98 mmol/L (98-107); COR CA(FOR HYPOALB) 9.1 mg/dL (8.5-10.1); COR NA(FOR HYPERGLY) 137 mmol/L (136-145); CREATININE 0.61 mg/dL (0.55-1.02); GLUCOSE 233 mg/dL (65-99); POTASSIUM 4.1 mmol/L (3.5-5.1); SODIUM 134 mmol/L (136-145); TOTAL PROTEIN 7.1 g/dL (6.4-8.2); eGFR NON BLACK RACES > 60 (>60)
[2024-06-08 06:53] LABS: PLATELET MORPHOLOGY COMMENT NORMAL (NORMAL)
[2024-06-08 06:54] LABS: ANISOCYTOSIS SLIGHT; HYPOCHROMASIA SLIGHT; MICROCYTOSIS SLIGHT
[2024-06-08 08:07] VITALS: BP 120/66; PULSE 108; RESP 20; TEMP 97.6; O2SAT 98
--- NOTE | 2024-06-08 10:04 | DR.H&P ---
H&P History & Physical for Day of: H&P Date: 06/07/24 Chief Complaint Chief Complaint: blurry vision, headache History of Present Illness History of Present Illness: Ms Serrato is a 54y/o female with a PMH of HTN, Type 2DM, GERD and urinary incontinence presented with changes in vision and headache. She denied any neurological deficits such as weakness, slurred speech or facial droop. Stroke code was called and tele-neuro was consulted. ER work up including CT-brain and MRI/MRA brain were negative for any acute stroke. Patie nt's labs did not show any pertinent abnormalities. UA was negative. She was admitted for observation. She is feeling better this morning, has slight headache. She did test positive for flu. CXR showed pulmonary edema. Denies chest pain or SOB. She is on room air. Labs/imaging reviewed: -WBC 2.7 Hgb 11.4 K 4.0 Cr 0.67 A1C 8.1 -Flu + -CXR: CHF -CT-brain and MRI/MRA reviewed Plan: continue telemetry monitoring and neurochecks. Start Tamiflu. Will order echo. Add statin for HLD. Replace electrolytes prn. Resume home medications. Monitor AM labs/imaging. Past Medical History Past Medical History: Diabetes and Hypertension Past Surgical History Surgical History: Cholecystectomy Family History Family Medical History: Diabetes Mellitus, Cancer, Coronary Artery Disease and Hypertension Social History Does patient currently use any type of tobacco product: No Type of Tobacco Use: None Does any household member use tobacco: No Alcohol Use: Rarely Drug Use: None Medications Home Medications: Home Medications Medication Instructions Recorded Confirmed Type duloxetine 60 mg capsule,delayed 60 mg PO QDAY 01/01/24 06/06/24 History release doxycycline hyclate 100 mg capsule 100 mg PO BID 06/06/24 06/06/24 History esomeprazole magnesium 40 mg 40 mg PO QDAY 06/06/24 06/06/24 History capsule,delayed release insulin aspart U-100 100 unit/mL 2 - 15 unit QID 06/06/24 06/06/24 History subcutaneous solution metformin 1,000 mg tablet 1,000 mg PO BID 06/06/24 06/06/24 History metoprolol tartrate 100 mg tablet 50 mg PO BID 06/06/24 06/06/24 History oxybutynin chloride 5 mg 5 mg PO QDAY 06/06/24 06/06/24 History tablet,extended release 24 hr Allergies Allergies Allergy/AdvReac Type Severity Reaction Status Date / Time No Known Drug Allergies Allergy Verified 06/06/24 09:34 Labs 06/08/24 05:28 06/08/24 05:28 Labs: Laboratory WBC 2.7 X10^3/uL (3.6-10.0) L 06/07/24 05:40 RBC 4.80 X10^6/uL (3.5-5.4) 06/07/24 05:40 Hgb 11.4 g/dL (12.0-16.0) L 06/07/24 05:40 Hct 35.0 % (36.0-47.0) L 06/07/24 05:40 MCV 72.9 fL (80.0-100.0) L 06/07/24 05:40 MCH 23.8 pg (27.0-34.0) L 06/07/24 05:40 MCHC 32.7 g/dL (33.0-35.0) L 06/07/24 05:40 RDW 16.7 % (11.6-16.5) H 06/07/24 05:40 Plt Count 227 X10^3/uL (150.0-450.0) 06/07/24 05:40 Plt Count Comment Adequate (ADEQUATE) 06/07/24 05:40 MPV 7.9 fL (7.4-11.0) 06/07/24 05:40 Neut % (Auto) 55.7 % (42.0-75.0) 06/07/24 05:40 Lymph % (Auto) 26.4 % (21.0-51.0) 06/07/24 05:40 Norton % (Auto) 15.4 % (0.0-13.0) H 06/07/24 05:40 Eos % (Auto) 2.0 % (0.9-2.9) 06/07/24 05:40 Baso % (Auto) 0.5 % (0.2-1.0) 06/07/24 05:40 Neut # (Auto) 1.5 x10^3/uL (2.2-4.8) L 06/07/24 05:40 Lymph # (Auto) 0.7 X10^3/uL (1.3-2.9) L 06/07/24 05:40 Norton # (Auto) 0.4 x10^3/uL (0.3-0.8) 06/07/24 05:40 Eos # (Auto) 0.1 x10^3/uL (0.0-0.2) 06/07/24 05:40 Baso # (Auto) 0.0 X10^3/uL (0.0-0.1) 06/07/24 05:40 Absolute Nucleated RBC 0.1 /100WBC 06/07/24 05:40 Total Counted 100 06/06/24 09:25 Neutrophils % (Manual) 72 % (39-76) 06/06/24 09:25 Band Neutrophils % 4 % (0-10) 06/06/24 09:25 Lymphocytes % (Manual) 14 % (13-43) 06/06/24 09:25 Monocytes % (Manual) 10 % (4-9) H 06/06/24 09:25 Plt Morphology Comment Normal (NORMAL) 06/07/24 05:40 RBC Morphology Abnormal (NORMAL) A 06/07/24 05:40 Hypochromasia 1+ A 06/07/24 05:40 Anisocytosis Slight A 06/07/24 05:40 Microcytosis Slight A 06/07/24 05:40 Stomatocytes Slight A 06/06/24 09:25 PT 13.2 SECONDS (11.8-14.3) 06/06/24 09:25 INR Target Range - 06/06/24 09:25 INR 1.02 (0.8-1.3) 06/06/24 09:25 APTT 25.8 SECONDS (22.9-36.5) 06/06/24 09:25 PTT Comment - 06/06/24 09:25 Fibrinogen 389 mg/dL (239-489) 06/06/24 09:25 Sodium 134 mmol/L (136-145) L 06/07/24 05:40 Corrected Sodium 137 mmol/L (136-145) 06/07/24 05:40 Potassium 4.0 mmol/L (3.5-5.1) 06/07/24 05:40 Chloride 98 mmol/L (98-107) 06/07/24 05:40 Carbon Dioxide 26.1 mmol/L (21-32) 06/07/24 05:40 BUN 11 mg/dL (7-18) 06/07/24 05:40 Creatinine 0.67 mg/dL (0.55-1.02) 06/07/24 05:40 Est GFR (MDRD) Af Amer > 60 (>60) 06/07/24 05:40 Est GFR (MDRD) Non-Af > 60 (>60) 06/07/24 05:40 Glucose 237 mg/dL (65-99) H 06/07/24 05:40 POC Glucose (mg/dL) 167 mg/dL (65-99) H 06/07/24 16:24 Hemoglobin A1c 8.1 % 06/06/24 09:25 Calcium 8.7 mg/dL (8.5-10.1) 06/07/24 05:40 Corrected Calcium TNP 06/07/24 05:40 Total Bilirubin 0.30 mg/dL (0.2-1.0) 06/07/24 05:40 AST 24 Units/L (15-37) 06/07/24 05:40 ALT 35 Units/L (12-78) 06/07/24 05:40 Alkaline Phosphatase 113 Units/L (46-116) 06/07/24 05:40 Creatine Kinase 59 Units/L (26-192) 06/06/24 09:25 Troponin I High Sens < 4.0 ng/L (4.0-60.0) L 06/06/24 09:25 B-Natriuretic Peptide < 5.0 pg/mL (0-79) 06/06/24 09:25 B-Natriuretic Peptide Cancelled 06/06/24 09:25 Total Protein 7.5 g/dL (6.4-8.2) 06/07/24 05:40 Albumin 3.4 g/dL (3.4-5.0) 06/07/24 05:40 Globulin 4.1 g/dL (2.5-4.5) 06/07/24 05:40 Albumin/Globulin Ratio 0.8 Ratio (1.1-2.1) L 06/07/24 05:40 Triglycerides 101 mg/dL (0-150) 06/06/24 09:25 Cholesterol 220 mg/dL (0-200) H 06/06/24 09:25 LDL Cholesterol, Calc 117 mg/dL (0-100) H 06/06/24 09:25 HDL Cholesterol 83 mg/dL (40-60) H 06/06/24 09:25 Cholesterol/HDL Ratio 2.7 (0.0-5.0) 06/06/24 09:25 Specimen Type Clean catch urine 06/06/24 12:16 Urine Color Yellow (YELLOW) 06/06/24 12:16 Urine Appearance Hazy (CLEAR) 06/06/24 12:16 Urine pH 6.0 (5.0 - 8.0) 06/06/24 12:16 Ur Specific University 1.015 (1.000-1.030) 06/06/24 12:16 Urine Protein 3+ (NEGATIVE) 06/06/24 12:16 Urine Glucose (UA) 4+ (NEGATIVE) 06/06/24 12:16 Urine Ketones 1+ (NEGATIVE) 06/06/24 12:16 Urine Blood 1+ (NEGATIVE) 06/06/24 12:16 Urine Nitrite Negative (NEGATIVE) 06/06/24 12:16 Urine Bilirubin Negative (NEGATIVE) 06/06/24 12:16 Urine Urobilinogen Normal (NORMAL) 06/06/24 12:16 Ur Leukocyte Esterase Negative (NEGATIVE) 06/06/24 12:16 Urine RBC 0-2 /HPF (0-3) 06/06/24 12:16 Urine WBC 0-2 /HPF (0-5) 06/06/24 12:16 Ur Squamous Epith Cells Few /HPF (NEGATIVE) 06/06/24 12:16 Urine Bacteria Negative /HPF (NEGATIVE) 06/06/24 12:16 Urine Mucus Rare /HPF (NEGATIVE) 06/06/24 12:16 Ur Culture Indicated? No/not indicated 06/06/24 12:16 SARS-CoV-2 (PCR) Negative (NEGATIVE) 06/06/24 10:32 Influenza Type A (PCR) Positive (NEGATIVE) A 06/06/24 10:32 Influenza Type B (PCR) Negative (NEGATIVE) 06/06/24 10:32 RSV (PCR) Negative (NEGATIVE) 06/06/24 10:32 Review of Systems Constitutional: Weakness and Malaise Eyes: Vision Change ENT: No Symptoms Reported Respiratory: Cough Cardiovascular: No Symptoms Reported Gastrointestinal: No Symptoms Reported Genitourinary: No Symptoms Reported Musculoskeletal: No Symptoms Reported Skin: No Symptoms Reported Neurological: Confusion Physical Exam Vital Signs: Vital Signs Temperature 98.1 F Pulse Rate [Brachial] 117 Respiratory Rate 18 Respiratory Rate 18 Blood Pressure [Right Arm] 120/77 O2 Sat by Pulse Oximetry 97 Oriented: Normal Eyes: Normal Nose: Normal Throat: Normal Respiratory: Clear Throughout Cardiovascular: Normal Auscultation: Bowel Sounds: Normal Palpation: Normal Tenderness: Normal Skin: Normal Musculoskeletal: Normal Psychiatric: Normal Mood Description: Calm Affect: Normal Speech Pattern: Clear and Appropriate Assessment/Plan (1) Brain TIA: Status: Acute (2) Headache: Qualifiers: Headache chronicity pattern: acute headache Headache type: unspecified Intractability: intractable Qualified Code(s): R51.9 - Headache, unspecified Status: Acute (3) Influenza A: Status: Acute (4) Diabetes: Qualifiers: Diabetes mellitus complication status: with hyperglycemia Diabetes mellitus long-term insulin use: unspecified long-term insulin use status Diabetes mellitus type: type 2 Qualified Code(s): E11.65 - Type 2 diabetes mellitus with hyperglycemia Status: Chronic (5) HLD (hyperlipidemia): Qualifiers: Hyperlipidemia type: mixed hyperlipidemia Qualified Code(s): E78.2 - Mixed hyperlipidemia Status: Chronic Review H&P Reviewed: Yes Patient was examined?: Yes
== END 2024-06-08 11:38 | disposition home or self-care (01) ==
LOC: ER 09:16 → MED/SURG 09:16
PROVIDERS: ADMIT Internal Medicine; ATTEND Internal Medicine
DX: E87.1 Hypo-osmolality and hyponatremia; R26.81 Unsteadiness on feet; M62.81 Muscle weakness (generalized); J10.1 Influenza due to other identified influenza virus with other respiratory manifestations; Z29.89 Encounter for other specified prophylactic measures; Z03.818 Encounter for observation for suspected exposure to other biological agents ruled out; E78.2 Mixed hyperlipidemia; R00.0 Tachycardia, unspecified; G45.8 Other transient cerebral ischemic attacks and related syndromes; I10 Essential (primary) hypertension; Z59.89 Other problems related to housing and economic circumstances; R51.9 Headache, unspecified; R94.31 Abnormal electrocardiogram [ECG] [EKG]; E11.65 Type 2 diabetes mellitus with hyperglycemia